=== PATIENT | female | born 1990 | race Caucasian/White ===

== ENCOUNTER 2021-11-22 13:58 | Outpatient (CLI) | payer OTHER, SELFPAY ==
--- NOTE | 2021-11-22 14:00 | CRLHL7_ITS ---
For Patients: As a result of the Century Cures Act, medical imaging exams and procedure reports are released immediately into your electronic medical record. You may view this report before your referring provider. If you have questions, please contact your health care provider. INDICATION: Third trimester scan, evaluate growth. COMPARISON: 07/27/2021 TECHNIQUE: Real time tucker scale imaging of the fetus was performed. FINDINGS: Sonographic imaging demonstrates a single living intrauterine gestation. Fetus demonstrates a regular cardiac rate of 150 beats per minute. Fetus has a vertex position. The placenta lies posteriorly. Amniotic fluid volume appears normal and there is a single deepest vertical pocket: 4.8 cm. The estimated weight is 3318gm which lies at the 69th %. On the prior OB ultrasound exam dated 07/27/2021 the estimated weight was at the 55th%. BPD 80th percentile. HC 74th percentile. AC 79th percentile. FL 31st percentile. The HC/AC ratio measures 1.00 range (0.90-1.06). Mild right renal pelviectasis is present measuring 4.6 millimeters. This is considered normal. However, there is increased left renal pelviectasis measuring 10.4 millimeters which is considered abnormal in the 3rd trimester. IMPRESSION: Sonographic gestational age 38 weeks 0 days and sonographic due date 12/06/2021. Sonographic age concordant with the gestational age. Normal interval growth. Estimated weight 69th percentile. Abdominal circumference 79th percentile. Left renal pelviectasis measuring 10.4 millimeters considered abnormal in the 3rd trimester. follow-up recommended. Dictated by Adelfo Rao MD @ 11/23/2021 9:06:49 AM (Electronically Signed)
== END 2021-11-22 13:59 | disposition home or self-care (01) ==
LOC: US 14:00
PROVIDERS: Visit Provider Registered Nurse
DX: Z34.93 Encounter for supervision of normal pregnancy, unspecified, third trimester (principal); Z3A.38 38 weeks gestation of pregnancy
CPT/HCPCS: 76816

== ENCOUNTER 2021-11-22 15:50 | Outpatient (CLI) | payer OTHER, SELFPAY ==
[2021-11-23 14:03] LABS: Strep B DNA Probe NEGATIVE (Negative)
== END 2021-11-22 15:51 | disposition home or self-care (01) ==
LOC: NFLDREF 15:51
PROVIDERS: Visit Provider Obstetrics & Gynecology
DX: Z34.93 Encounter for supervision of normal pregnancy, unspecified, third trimester (principal); Z3A.38 38 weeks gestation of pregnancy
CPT/HCPCS: 87081; 87653

== ENCOUNTER 2021-12-12 11:13 | Outpatient (CLI) | payer OTHER, SELFPAY ==
[2021-12-12 11:39] VITALS: BP 118/71; PULSE 122; TEMP 36.6
[2021-12-12] MEDS: hydrOXYzine pamoate 25 MG CAPSULE 100 MG PO (13:23)
[2021-12-12] MEDS: MORPHINE 10 MG/ML inj IM (13:24)
[2021-12-12 13:59] LABS: Amnisure Rom* Negative
--- OUTSIDE RECORDS SUMMARY | 2021-12-19 21:48 | XMS_ITS | Encounter Summary ---
:1990 Author Organization [facility] Address [address] [place] [address] Care Team Providers Name Role Phone Nelly Avalos M.D. 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 Alcohol Habits Answer Date Recorded How often do you have a drink containing Monthly or less 02/27/2019 alcohol? How many drinks containing alcohol do you 1 or 2 02/27/2019 have on a typical day when you are drinking? How often do you have six or more drinks Never 02/27/2019 on one occasion? Comment: Maybe once a month, if that. 05/04/2019 Social Isolation Answer Date Recorded In a typical week, how many times do you talk on Once a week 02/27/2019 the phone with family, friends, or neighbors? How often do you get together with friends or Once a week 02/27/2019 relatives? How often do you attend mosque or episcopalian 1 to 4 times per year 02/27/2019 services? Do you belong to any clubs or organizations such No 02/27/2019 as mosque groups, unions, fraternal or athletic groups, or school groups? How often do you attend meetings of the clubs or Never 02/27/2019 organizations you belong to? Are you now , , , 02/27/2019 , never or living with a partner? Physical Activity Answer Date Recorded On average, how many days per week do you engage in moderate to 2 days 02/27/2019 strenuous exercise (like walking fast, running, jogging, dancing, swimming, biking, or other activities that cause a light or heavy sweat)? On average, how many minutes do you engage in exercise at th is 30 min 02/27/2019 level? Stress Answer Date Recorded Do you feel stress - tense, restless, nervous, or To some ex tent 02/27/2019 anxious, or unable to sleep at night because your mind is troubled all the time - these days? Financial Resource Strain Answer Date Recorded How hard is it for you to pay for the very basics like Not v marimar hard 02/27/2019 food, housing, medical care, and heating? Intimate Partner Violence Answer Date Recorded Within the last year, have you been afraid of your partner o r No 02/27/2019 ex-partner? Within the last year, have you been humiliated or emotionall y Yes 02/27/2019 abused in other ways by your partner or ex-partner? Within the last year, have you been kicked, hit, slapped, or No 02/27/2019 otherwise physically hurt by your partner or ex-partner? Within the last year, have you been raped or forced to have any No 02/27/2019 kind of sexual activity by your partner or ex-partner? Food Insecurity Answer Date Recorded Within the past 12 months, you worried that your food would Never true 02/27/2019 run out before you got money to buy more. Within the past 12 months, the food you bought just didn't N ever true 02/27/2019 last and you didn't have money to get more. Transportation Needs Answer Date Recorded In the past 12 months, has lack of transportation kept you f rom No 02/27/2019 medical appointments or from getting medications? In the past 12 months, has lack of transportation kept you f rom No 02/27/2019 meetings, work, or getting things needed for daily living? Education Answer Date Recorded What is the highest level of school Associate degree: academ [employer] program 02/26/2019 you have completed or the highest degree you have received? 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 PCP - General Family Medicine 11/15/[address] [place] [id number] documented as of this encounter
--- OUTSIDE RECORDS SUMMARY | 2021-12-19 21:48 | XMS_ITS | Encounter Summary ---
:1990 Author Organization [facility] Address [address] [place] [address] Care Team Providers Name Role Phone Nelly Avalos M.D. Primary Care Provider Reason for Visit Reason Comments Vomiting Encounter Details Date Type Department Care Team Description 07/01/2021 Nurse Triage Department of Adina Laguna, [facility] Medicine, [facility], [facility] in [place], [place] [address] [facility] [address] [place] [address] [place] [address] [phone] Social History Tobacco Use Types Packs/Day Years [...] 02/27/2019 relatives? How often do you attend christian or christianity 1 to 4 times per year 02/27/2019 services? Do you belong to any clubs or organizations such No 02/27/2019 as christian groups, unions, fraternal or athletic groups, or [...] the highest level of school Associate degree: [employer] program 02/26/2019 you have completed or the highest degree you have received? Sex Assigned at Date Recorded Female 02/27/2019 11:22 AM CDT documented as of this encounter Miscellaneous Notes Telephone Encounter - Adina ChowdhuryUrszula - 07/01/2021 5:12 AM WINDOW REPAIRER Chief Complaint / Reason for Call Patient is a 31 y.o. female calling regarding Vomiting. Assessment Concern: Patient began having vomiting and diarrhea about 6 hours ago. No blood in the vomit or stools. No fever is present at this time. Patient is able to drink fluids, and is not dehydrated at this time. Patient is 17 weeks . Calling to request: Advice The recommended disposition is Home Care. Care Advice Patient/Caregiver understands and will follow care advice?: Yes, able to teach back HOME CARE: * You should be able to treat this at home. REASSURANCE AND EDUCATION: * Vomiting and diarrhea are often caused by viral gastroenteritis (stomach flu) or mild food poisoning. * Staying well-hydrated is the most important thing. CLEAR LIQUIDS: * Try to sip small amounts (1 tablespoon or 15 ml) of liquid frequently (every 5 minutes) for 8 hours, rather than trying to drink a lot of liquid all at one time. * Sip water or a 1/2 strength sports drink (e.g., Gatorade or Powerade). * Other options: 1/2 strength flat lemon-huslia soda or florentino lexa. * After 4 hours without vomiting, increase the amount. SOLID FOOD: * You may begin eating bland foods after 8 hours without vomiting. * Start with saltine crackers, white bread, rice, mashed potatoes, cereal, applesauce, etc. * You can resume a normal diet in 24-48 hours. AVOID NON-ESSENTIAL MEDS: * Discontinue all vitamins and non-prescription medicines for 24 hours. (Reason: may make vomiting worse.) * Avoid NSAIDs, which can cause gastritis * Call if vomiting a prescription medicine. EXPECTED COURSE: * Vomiting from viral gastroenteritis (stomach flu) or mild food poisoning usually stops in 12 to 48hours. * Diarrhea often lasts for several days. For mild diarrhea, follow the care advice for vomiting; youdon't need to do anything special for mild diarrhea. CALL BACK IF: * Vomiting lasts more than 2 days (48 hours) * Vomit contains bile (green color) * Diarrhea lasts more than 7 days * Constant stomach pain lasting more than 2 hours * Signs of dehydration (e.g., no urination over 12 hours, very lightheaded) * You become worse. COVID-19 Nurse Line Screening ASSESSMENT Initial Screening Pathway Select appropriate pathway: : Adult In the last 48 hours, have you had a fever* OR symptoms that are unrelated to a preexisting illness?: New diarrhea, New vomiting, New nausea, New chills, New muscle aches, New headache Date of symptom onset: 06/30/21 COVID Symptomatic Screening Do you have any of the following urgent symptoms?: No urgent symptoms noted (Continue Screening) Have you received a COVID-19 vaccine in the last 72 hours? : No vaccine received (Continue Screening) Have you had close contact* with a person who has tested positive with COVID-19 in the past 14 days?: No (Continue Screening) Have you tested positive for COVID-19 in the last 45 days?: Yes. Testing for COVID-19 is not indicated at this time. (Continue Screening for Additional Testing) Additional Screening for Influenza, RSV and Strep Select appropriate region: : [place] Do you have any of the following respiratory syntonical virus (RSV) complications? : No complications noted (Continue Screening) Do you have any of the following high risk influenza criteria?: No criteria noted (Continue Screening) Are all of the following Strep criteria met? : No, all criteria are not met. Influenza tesing is indicated. (End Screening) Symptom Onset Date of symptom onset: 06/30/21 Testing Recommendation Endpoint Is testing recommended? : Not recommended to test Further Triage Needs Any further triage needs? : No further concerns noted. PLAN Endpoint recommendation: Testing not indicated at this time Standard Care Points -Get a COVID -19 vaccine as soon as you can if not fully vaccinated. -Wash hands frequently with soap and water, use hand mine expert if soap and water aren't available. -Wear a mask over your nose and mouth to help protect yourself and others if not fully vaccinated and having no symptoms -Stay 6 feet between yourself and others who don't live with you. -Avoid crowds and poorly ventilated indoor spaces. -Seek emergent care if any of the following occur Trouble breathing Bluish lips or face Persistent pain or pressure in the chest New confusion or inability to rouse. -Notify your regular care provider of any new or worsening symptoms. Symptomatic Carepoints: All symptomatic patients, even those who are up to date with COVID-19 vaccinations, should isolate pending COVID-19 testing result received. Stay home and separate yourself fromothers and stay in a specific sick room if able. Wear a mask if you have to be around others. Avoid sharing personal or household items. Rest. Hydrate. Take Acetaminophen/Ibuprofen as needed to control fever and muscles aches. If you have tested negative for COVID-19, and you continue to have new orworsening symptoms, consider retesting after 72 hours. Education: Patient/caregiver able to teach back Patient agreeable to plan of care: Yes The following references were used: Nursing judgement Reason for Disposition ??? MILD vomiting with diarrhea Protocols used: [id number] OW REPAIRER documented in this encounter Plan of Treatment Not on filedocumented as of this encounter Visit Diagnoses Not on filedocumented in this encounter Additional Health Concerns Assessment Noted Time PHQ-9 Depression Total Score: 10 02/27/2019 11:27 AM C DT documented as of this encounter Care Teams Silviculturist Relationship Specialty Start Date End Date Nelly Avalos M.D. PCP - General Family Medicine 11/15/[address] [place] [phone] documented as of this encounter
--- OUTSIDE RECORDS SUMMARY | 2021-12-19 21:48 | XMS_ITS | Clinical Summary ---
:1990 Author Organization [facility] Address [address] [place] [address] Care Team Providers Name Role Phone Nelly Avalos M.D. Primary Care Provider Source Comments Patient records contain information from all sites at [facility]. For routine questions regarding patient records, call [phone] during business hours, M-F 8:00 AM - 5:00 PM Central Time. Record requests for emergency care only can be directed to [phone] at any time.[facility] Allergies No known active allergies Medications No known medications Active Problems Problem Noted Date Acne 02/27/2019 Polycystic Ovary Syndrome 09/24/2016 Resolved Problems Problem Noted Date Resolved Date Health Maintenance Examination Adult 02/27/201907/2020 Overview: - Pap: 07/2017 - normal, due 07/2020 - BMI: 24 - Vaccinations: Premature Rupture Membrane 05/06/2017 02/27/2019 Pyelonephritis Acute 07/10/2016 02/27/2019 Immunizations Name Administration Dates Next Due Influenza (IM) Preservative Free 05/01/2015 Influenza, Unspecified 02/25/2019 SARS-COV-2 (COVID-19) - EthosGen (J&J) 12/13/2020 Tdap 04/17/2017 influenza vaccine quad 02/22/2021, 06/22/2020, 02/17/2018, (FLUZONE/FLUARIX) (6 months and 03/20/2017 older)(PF) Family History Medical History Relation Name Comments Breast cancer Maternal Grandmother ? Alcohol abuse Mother Lyla Anxiety disorder Mother Lyla Depression Mother Lyla Hyperlipidemia Mother Lyla Hypertension Mother Lyla Obesity Mother Lyla Suicide Attempts Paternal Grandfather Tata Seizures Son Jim Relation Name Status Comments Maternal Grandmother ? Mother Lyla Paternal Grandfather Tata Son Jim Social History Tobacco Use Types Packs/Day Years [...] 02/27/2019 relatives? How often do you attend orthodox or druze 1 to 4 times per year 02/27/2019 services? Do you belong to any clubs or organizations such No 02/27/2019 as orthodox groups, unions, fraternal or athletic groups, or [...] highest level of school Associate degree: academ [employer] program 02/26/2019 you have completed or the highest degree you have received? Sex Assigned at Date Recorded Female 02/27/2019 11:22 AM CDT Last Filed Vital Signs Vital Sign Reading Time Taken Comments Blood Pressure 124/80 02/01/2021 1:32 PM CDT Pulse 85 02/01/2021 1:32 PM CDT Temperature 36 ??C (96.8 ??F) 02/01/2021 1:32 PM CDT Respiratory Rate 18 02/01/2021 1:32 PM CDT Oxygen Saturation 99% 02/01/2021 1:32 PM CDT Inhaled Oxygen Concentration - - Weight 83.1 kg (183 lb 3.2 oz) 02/01/2021 1:32 PM CDT Height 174 cm (5' 8.5) 06/22/2020 11:11 AM HADOOP INFRASTRUCTURE ARCHITECT Body Mass Index 27.45 06/22/2020 11:11 AM HADOOP INFRASTRUCTURE ARCHITECT Plan of Treatment Health Maintenance Due Date Last Done Comments Hepatitis B Vaccines (1 of 1990 3 - 3-dose series) Hepatitis C Screening 1990 COVID-19 Vaccine (2 - 02/07/2021 12/13/2020 Booster for Audie series) Depression Screening 05/13/2021 (Annual PHQ-2) Influenza Vaccine (#1) 2022 02/22/2021, 06/22/2020, 02/25/2019, Additional history exists Cervical Cancer Screening 06/22/2023 06/22/2020, 06/22/2020 , 07/23/2017 DTaP,Tdap,and Td Vaccines 04/17/2027 04/17/2017 (2 - Td or Tdap) HIV Screening Completed 11/01/2016 Pneumococcal vaccine (0-64 Aged Out No lo nger eligible years) based on patient 's age to complete this topic Insurance Payer Benefit Plan Subscriber ID Effective Dates Phone Address Type / Group MEDICA [facility] [id number] 2020-Prese [phone] PO DINO X [id number] PPO EMPLOYEE PLAN nt 2 [place] [id number] Care Teams Bmx Rider Relationship Specialty Start Date End Date Nelly Avalos M.D. PCP - General Family Medicine 11/15/[address] [place] [phone]
--- OUTSIDE RECORDS SUMMARY | 2021-12-19 21:48 | XMS_ITS | Encounter Summary ---
:1990 Author Organization [facility] Address [address] [place] [address] Care Team Providers Name Role Phone Nelly Avalos M.D. Primary Care Provider Encounter Details Date Type Department Care Team Description 05/16/2021 Admin Visit Department of Family [facility] Veras, [facility], [facility] [address] [facility] [address] [place] [phone] (Wo rk) Social History Tobacco Use Types Packs/Day Years [...] 02/27/2019 relatives? How often do you attend orthodoxy or temple 1 to 4 times per year 02/27/2019 services? Do you belong to any clubs or organizations such No 02/27/2019 as orthodoxy groups, unions, fraternal or athletic groups, or [...] highest level of school Associate degree: academ [employer] program 02/26/2019 you have completed or the highest degree you have received? Sex Assigned at Date Recorded Female 02/27/2019 11:22 AM CDT documented as of this encounter Plan of Treatment Not on filedocumented as of this encounter Visit Diagnoses Not on filedocumented in this encounter Additional Health Concerns Infection Onset Date Last Indicated Resolved Time COVID19 Pending 05/16/2021 05/16/2021 05/17/2021 9:50 PM RIPSAW GRADER Assessment Noted Time PHQ-9 Depression Total Score: 10 02/27/2019 11:27 AM C DT documented as of this encounter Care Teams Principal Automation Engineer Relationship Specialty Start Date End Date Nelly Avalos M.D. PCP - General Family Medicine 11/15/[address] [place] [phone] documented as of this encounter
--- OUTSIDE RECORDS SUMMARY | 2021-12-19 21:48 | XMS_ITS | Encounter Summary ---
:1990 Author Organization [facility] Address [address] [place] [address] Care Team Providers Name Role Phone Nelly Avalos M.D. Primary Care Provider Reason for Visit Reason Onset Date Comments Testing For Upper Respiratory Virus Symptoms 05/16/2021 Encounter Details Date Type Department Care Team Description 05/16/2021 External Outreach Department of [facility] Contact With And (Suspected) Exposure To COVID-19; Medicine, [facility] In[facility], in [address] [address] [place], [place] [phone] (Work) [phone] Social History Tobacco Use Types Packs/Day Years [...] 02/27/2019 relatives? How often do you attend pentecostal or sikh 1 to 4 times per year 02/27/2019 services? Do you belong to any clubs or organizations such No 02/27/2019 as pentecostal groups, unions, fraternal or athletic groups, or [...] the highest level of school Associate degree: [facility] [employer] [facility] [employer] program 02/26/2019 you have completed or the highest degree you have received? Sex Assigned at Date Recorded Female 02/27/2019 11:22 AM CDT documented as of this encounter Progress Notes Herber Singh - 05/16/2021 1:40 PM CST Encounter created for symptomatic infectious disease screening with possible COVID, Influenza, RSV, and/or Group A Strep testing. ATTACHER documented in this encounter Miscellaneous Notes Result Encounter Note - Torres Luna R.N. - 05/18/2021 8:59 AM STOP ATTACHER The patient will be contacted if they are eligible and appointments are available for Monoclonal Antibody Infusion and/or Remote Patient Monitoring. The [facility] Covid Care Team (CCT) sends general guidance about COVID-19 to all patients by letter or portal, except when a patient is hospitalized or resides in a shelter. [facility] will call all adult patients at highest risk for severe complications of COVID-19 (MASS 3 or greater) and all who require an photographic equipment technician. Any patient with a MASS score 1 or greater or a COVID-19 score 1 or greater may be at higher risk ofsevere disease. These patients will follow up directly with primary care. The primary care team willdecide if the patient needs a phone call or a follow up portal message to assess symptom severity, provide individualized guidance on symptom monitoring or symptom management, or to reinforce when to se ek care. [facility] encourages patients to follow up with their PCP with questions, worsening symptoms, or for symptom management. For questions, contact the [facility] Covid Care Team ([facility]): Pager: [phone] In basket: P RST/[facility] COVID-19 POSITIVE Covid Care e-consult Components of the Monoclonal Antibody Selection Score (MASS) Compromised Immune System/Transplant = 4 points Chronic Kidney Disease on Dialysis = 4 points Age greater than or equal to 55 and chronic pulmonary disease = 3 points Age greater than or equal to 65 = 2 points Age greater than or equal to = 2 points Diabetes = 2 points Age greater than or equal to 55 AND cardiovascular disease = 2 points Age greater than or equal to 55 and hypertension = 1 point NOTE: At the time of testing, patients are instructed to obtain the result by calling the [employer] result line or by checking their online services account. ATTACHER documented in this encounter Plan of Treatment Not on filedocumented as of this encounter Procedures Procedure Name Priority Date/Time Associated Diagnosis Comme nts INFLUENZA A/B AND Routine 05/16/2021 3:05 PM Infection Upper R esults for this RSV, PCR, VARIES STOP ATTACHER Respiratory procedure a re in the results section. SARS CORONAVIRUS-2 Routine 05/16/2021 3:05 PM Contact With And Results for this RNA, V STOP ATTACHER (Suspected) Exposure procedu re are in To COVID-19 the results section. documented in this encounter Results Influenza A/B and RSV, PCR, Varies (05/16/2021 3:05 PM STOP ATTACHER) [facility] Method Time Signature Influenza A/B Swab, 05/20/2021 DTL and RSV, Nasopharynx 12:46 PM Source STOP ATTACHER Influenza A, Undetected Undetected 05/20/2021 DTL PCR 12:46 PM STOP ATTACHER Comment: Influenza A RNA absent. Influenza B, PCR Undetected Undetected 05/20/2021 12:[address] DTL Comment: Influenza B RNA absent. Respiratory Syncytial Virus, Undetected Undetected 2 12:46 PM STOP ATTACHER DTL PCR Comment: RSV RNA absent. ----ADDITIONAL INFORMATION---- This test has been modified from the man ufacturer's instructions. Its performance characteristics were determi selene by [facility] in a manner consistent with CLIA requirements. This test has not been cleared or approved by the U.S. Food and Drug Administration . Specimen Anatomical Collection Method Collection Time Receive d Time (Source) Location / / Volume Laterality Varies 05/16/2021 3:05 PM 2 (Nasopharynx) STOP ATTACHER 10:11 PM STOP ATTACHER Al Wilson P.A.-C. LAB MICROBIOLOGY - GENERAL O RAVINDRA Performing Organization Address City/State/ZIP Code Phon e Number [facility] - [address] [place], [place] [address] [facility] [place] [address] Laboratories-[facility] [address] [facility] (ABNORMAL) SARS Coronavirus-2 RNA, V Symptomatic (05/16/2021 3:05 PM STOP ATTACHER) [facility] Method Time Signature SARS-CoV-2 Swab, 05/17/2021 ECLR Specimen Nasopharynx 9:49 PM STOP ATTACHER Source SARS CoV-2 Detected (A) Undetected 05/17/2021 ECLR RNA, TMA 9:49 PM STOP ATTACHER Comment: SARS-CoV-2 RNA present. ----ADDITIONAL INFORMATION---- This molecular amplification test was pe rformed using the Aptima SARS-CoV-2 assay ([employer] on the [employer] tem under emergency use authorization (EUA) by the U.S. Food and Drug Administ timo. Fact sheets for this EUA assay can be fo und at the following links: For Healthcare Providers: https://www.fd a.gov/media/216322/download For Patients: https://www.fda.gov/media/ 412152/download Specimen Anatomical Collection Method Collection Time Receive d Time (Source) Location / / Volume Laterality Varies 05/16/2021 3:05 PM (Nasopharynx) STOP ATTACHER 10:06 PM STOP ATTACHER Al Wilson P.A.-C. LAB MICROBIOLOGY - GENERAL O RAVINDRA Performing Organization Address City/[facility]/ZIP Code Phon e Number [facility]- [address] [place] [phone] [facility] [place] [address] [address] documented in this encounter Visit Diagnoses Diagnosis Contact With And (Suspected) Exposure To COVID-19 Infection Upper Respiratory documented in this encounter Additional Health Concerns Infection Onset Date Last Indicated Resolved Time COVID19 Pending 05/16/2021 05/16/2021 05/17/2021 9:50 PM STOP ATTACHER Assessment Noted Time PHQ-9 Depression Total Score: 10 02/27/2019 11:27 AM C DT documented as of this encounter Care Teams Statistical Assistant Relationship Specialty Start Date End Date Nelly Avalos M.D. PCP - General Family Medicine 11/15/[address] [place] [phone] documented as of this encounter
--- OUTSIDE RECORDS SUMMARY | 2021-12-19 21:49 | XMS_ITS | Encounter Summary ---
:1990 Author Organization [facility] Address [address] [place] [address] Care Team Providers Name Role Phone Nelly Avalos M.D. Primary Care Provider Encounter Details Date Type Department Care Team Description 11/15/2020 E-Visit [facility] Express Gilma Hassan, RE : [facility] Bladder Infection Building on the [address] (female only, age 12-75 Floor years) [address] [place] [address] Social History Tobacco Use Types Packs/Day Years [...] 02/27/2019 relatives? How often do you attend sikh or mu-ism 1 to 4 times per year 02/27/2019 services? Do you belong to any clubs or organizations such No 02/27/2019 as sikh groups, unions, fraternal or athletic groups, or [...] highest level of school Associate degree: academ [employer] program 02/26/2019 you have completed or the highest degree you have received? Sex Assigned at Date Recorded Female 02/27/2019 11:22 AM CDT documented as of this encounter Plan of Treatment Not on filedocumented as of this encounter Visit Diagnoses Diagnosis Symptom Urinary - Primary documented in this encounter Additional Health Concerns Assessment Noted Time PHQ-9 Depression Total Score: 10 02/27/2019 11:27 AM C DT documented as of this encounter Care Teams Research Aide Relationship Specialty Start Date End Date Nelly Avalos M.D. PCP - General Family Medicine 11/15/[address] [place] [phone] documented as of this encounter
--- OUTSIDE RECORDS SUMMARY | 2021-12-19 21:49 | XMS_ITS | Encounter Summary ---
:1990 Author Organization [facility] Address [address] [place] [address] Care Team Providers Name Role Phone Nelly Avalos M.D. Primary Care Provider Reason for Visit Reason Comments Urinary Tract Infection Encounter Details Date Type Department Care Team Description 11/16/2020 Nurse Triage Department of [facility] Maria L Burch Ur inary Tract Medicine, [facility], in [address] [address] [place], [place] [phone] (Work) [phone] Social History Tobacco Use Types Packs/Day Years [...] 02/27/2019 relatives? How often do you attend taoist or nondenominational 1 to 4 times per year 02/27/2019 services? Do you belong to any clubs or organizations such No 02/27/2019 as taoist groups, unions, fraternal or athletic groups, or [...] the highest level of school Associate degree: [employer] program 02/26/2019 you have completed or the highest degree you have received? Sex Assigned at Date Recorded Female 02/27/2019 11:22 AM CDT documented as of this encounter Miscellaneous Notes Telephone Encounter - Maria L Burch R.N. - 11/16/2020 9:02 AM CDT Chief Complaint / Reason for Call Patient is a 30 y.o. female calling regarding Urinary Tract Infection. Assessment Concern: patient has a UTI and was given antibiotics that she started taking last night. Patient is feeling nauseated and is having lower abdomen pressure. Pain is 3/10. Calling to request: advice The recommended disposition: call back in 48hrs if symptoms do not improve. Reason for Disposition ??? All other urine symptoms Protocols used: URINARY [id number] Care Advice Patient/Caregiver understands and will follow care advice?: Yes, able to teach back CALL BACK IF: * Fever occurs * Unable to urinate and bladder feels full * You become worse. Triage nurse encouraged the patient to continue with taking her antibiotics as directed, to stay hydrated, and if symptoms persist to call us back at 48 hours for follow up. documented in this encounter Plan of Treatment Not on filedocumented as of this encounter Visit Diagnoses Not on filedocumented in this encounter Additional Health Concerns Assessment Noted Time PHQ-9 Depression Total Score: 10 02/27/2019 11:27 AM C DT documented as of this encounter Care Teams Track Repair Worker Relationship Specialty Start Date End Date Nelly Avalos M.D. PCP - General Family Medicine 11/15/[address] [place] [phone] documented as of this encounter
--- OUTSIDE RECORDS SUMMARY | 2021-12-19 21:49 | XMS_ITS | Encounter Summary ---
:1990 Author Organization [facility] Address [address] [place] [address] Care Team Providers Name Role Phone Mahi Coombs M.D. Primary Care Provider Encounter Details Date Type Department Care Team Description 04/07/2020 Admin Visit Department of Family Medicine, [facility] [place] in [place], [place] [address] [place] [address] Social History Tobacco Use Types Packs/Day Years [...] 02/27/2019 relatives? How often do you attend quaker or hoahaoism 1 to 4 times per year 02/27/2019 services? Do you belong to any clubs or organizations such No 02/27/2019 as quaker groups, unions, fraternal or athletic groups, or [...] highest level of school Associate degree: academ [employer] program 02/26/2019 you have completed or the highest degree you have received? 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 PCP - General 11/11/19 11/14/20 [address] [place] [address] documented as of this encounter
--- OUTSIDE RECORDS SUMMARY | 2021-12-19 21:49 | XMS_ITS | Encounter Summary ---
:1990 Author Organization [facility] Address [address] [place] [address] Care Team Providers Name Role Phone Yandel Montgomery M.D. Primary Care Provider Unavailable Encounter Details Date Type Department Care Team Description 06/20/2018 Clinical Communication Division of [facility] [place] [facility], [address] [place] [address], in [place], [place] [address] [place] [address] [place], [place] (Work) [phone] Social History Tobacco Use Types Packs/Day Years Used Date Smoking Tobacco: Never Alcohol Habits Answer Date Recorded How often do you have a drink containing alcohol? Monthly or less 02/27/2019 How many drinks containing alcohol do you have on a 1 or 2 02/27/2019 typical day when you are drinking? How often do you have six or more drinks on one Never 02/27/2019 occasion? Comment: Not asked Social Isolation Answer Date Recorded In a typical week, how many times do you talk on Once a week 02/27/2019 the phone with family, friends, or neighbors? How often do you get together with friends or Once a week 02/27/2019 relatives? How often do you attend nondenominational or christianity 1 to 4 times per year 02/27/2019 services? Do you belong to any clubs or organizations such No 02/27/2019 as nondenominational groups, unions, fraternal or athletic groups, or [...] or getting things needed for daily living? Sex Assigned at Date Recorded Female 02/27/2019 11:22 AM CDT documented as of this encounter Plan of Treatment Not on filedocumented as of this encounter Visit Diagnoses Not on filedocumented in this encounter Care Teams Director Operations Broadcast Relationship Specialty Start Date End Date Yandel Montgomery M.D. PCP - General Internal Medicine 11/11/16 12/04/18 documented as of this encounter
--- OUTSIDE RECORDS SUMMARY | 2021-12-19 21:49 | XMS_ITS | Encounter Summary ---
:1990 Author Organization [facility] Address [address] [place] [address] Care Team Providers Name Role Phone Mahi Coombs M.D. Primary Care Provider Encounter Details Date Type Department Care Team Description 05/12/2020 E-Visit [facility] [place], RE: [facility]females o nly, ages 12 Building on the 4th M.S.N. through 75 years) Floor [address] [place] [address] [address] [place] [address] [phone] Social History Tobacco Use Types Packs/Day Years [...] 02/27/2019 relatives? How often do you attend christianity or nondenominational 1 to 4 times per year 02/27/2019 services? Do you belong to any clubs or organizations such No 02/27/2019 as christianity groups, unions, fraternal or athletic groups, or [...] highest level of school Associate degree: academ program 02/26/2019 you have completed or the highest degree you have received? Sex Assigned at Date Recorded Female 02/27/2019 11:22 AM CDT documented as of this encounter Plan of Treatment Not on filedocumented as of this encounter Visit Diagnoses Diagnosis Infection Urinary Tract - Primary documented in this encounter Additional Health Concerns Assessment Noted Time PHQ-9 Depression Total Score: 02/27/2019 11:27 AM C DT documented as of this encounter Care Teams Cushion Filler Relationship Specialty Start Date End Date Mahi Coombs M.D. PCP - General 11/11/19 11/14/20 [address] [place] [address] documented as of this encounter
--- OUTSIDE RECORDS SUMMARY | 2021-12-19 21:49 | XMS_ITS | Encounter Summary ---
:1990 Author Organization [facility] Address [address] [place] [address] Care Team Providers Name Role Phone Nelly Avalos M.D. Primary Care Provider Encounter Details Date Type Department Care Team Description 03/24/2021 Orders Only RST PCP [facility] Deandra Sierra M.D. [address] [place], [place] [phone] (Wo rk) Social History Tobacco Use Types [...] 02/27/2019 relatives? How often do you attend hinduism or buddhism 1 to 4 times per year 02/27/2019 services? Do you belong to any clubs or organizations such No 02/27/2019 as hinduism groups, unions, fraternal or athletic groups, or [...] the highest level of school Associate degree: [employer] program 02/26/2019 you have completed or the [...] documented as of this encounter Care Teams Cooker Helper Relationship Specialty Start Date End Date Nelly Avalos M.D. PCP - General Family Medicine 11/15/[address] [place] [phone] documented as of this encounter
--- OUTSIDE RECORDS SUMMARY | 2021-12-19 21:49 | XMS_ITS | Encounter Summary ---
:1990 Author Organization [facility] Address [address] [place] [address] Care Team Providers Name Role Phone Anastasia Coyne D.O. Primary Care Provider [phone] Encounter Details Date Type Department Care Team Description 02/27/2019 Hospital Encounter Department of Mickey Coyne Female; Laboratory Medicine Cuong Figueroa Polycystic Ovary Syndrome in [place], [facility] [address] [place], [place] [address] [facility] [address] [place], [place] [phone] [address] (Work) [phone] Social History Tobacco Use Types Packs/Day Years Used Date Smoking Tobacco: Never Smokeless Tobacco: Never Alcohol Habits Answer Date Recorded [...] 02/27/2019 relatives? How often do you attend methodist or samaritan 1 to 4 times per year 02/27/2019 services? Do you belong to any clubs or organizations such No 02/27/2019 as methodist groups, unions, fraternal or athletic groups, or [...] the highest level of school Associate degree: [employer] program 02/26/2019 you have completed or the highest degree you have received? Sex Assigned at Date Recorded Female 02/27/2019 11:22 AM CDT documented as of this encounter Medications at Time of Discharge Medication Sig Dispensed Refills Start Date End Date letrozole (FEMARA) 2.5 mg Take 1 tablet (2.5 15 tablet 0 05/12/2020 tablet mg total) by mouth as directed. Take on days 3-7 of cycle. Do not use for more than three cycles multivitamin capsule Take 1 tablet by 0 7 05/12/2020 mouth daily. prenat.vits,brody,min-iron-f Take 1 tablet by 0 05/12/2020 olic ( VITAMIN) mouth daily. tablet documented as of this encounter Plan of Treatment Not on filedocumented as of this encounter Procedures Procedure Name Priority Date/Time Associated Diagnosis Comme nts THYROID FUNCTION Routine 02/27/2019 2:22 PM Infertility Female Results for this CASCADE, S CDT Polycystic Ovary procedure a re in Syndrome the results section. PROLACTIN, S Routine 02/27/2019 2:22 PM Infertility F emale Results for this CDT Polycystic Ovary procedure a re in Syndrome the results section. LUTEINIZING HORMONE Routine 02/27/2019 2:22 PM Infertili ty Female Results for this (LH), S CDT Polycystic Ovary procedure a re in Syndrome the results section. FOLLICLE-STIM Routine 02/27/2019 2:22 PM Infertility F emale Results for this HORMONE (FSH), S CDT Polycystic Ovary procedu re are in Syndrome the results section. documented in this encounter Results Prolactin (02/27/2019 2:22 PM CDT) P athologist Signature Prolactin Total 10.2 4.8 - 23.3 02/27/2019 DTL ng/mL 7:57 PM CDT Comment: ----ADDITIONAL INFORMATION---- The testing method is an electrochemilum inescence assay manufactured by [employer] and performed on the Chris system. Values obtained with different assay met hods or kits may be different and cannot be used inte rchangeably. Test results cannot be interpreted as ab solute evidence for the presence or absence of malignant disease. Specimen Anatomical Collection Method Collection Time Receive d Time (Source) Location / / Volume Laterality Blood (Blood, 02/27/2019 2:22 PM 02/28/20 6:06 Venous) CDT PM CDT Anastasia Coyne D.O. LAB BLOOD ADD-ON Performing Organization Address [facility] Phon e Number [facility] - 200 [place], [place] [address] [place] [address] Laboratories-[facility] 200 [facility] LH (Luteinizing Hormone) (02/27/2019 2:22 PM CDT) P athologist Signature Luteinizing 8.4 IU/L 02/27/2019 DT Hormone (LH) 7:57 PM CDT Comment: ----REFERENCE VALUE---- Premenopausal: 1.9-14.6 IU/L (Follicular) 12.2-118.0 IU/L (Midcycle) 0.7-12.9 IU/L (Luteal) Postmenopausal: 5.3-65.4 IU/L Specimen Anatomical Collection Method Collection Time Receive d Time (Source) Location / / Volume Laterality Blood (Blood, 02/27/2019 2:22 PM 02/28/20 6:06 Venous) CDT PM CDT Anastasia Coyne D.O. LAB BLOOD ADD-ON Performing Organization Address City/[facility] Code Phon e Number [facility] - 200 [place], [place] [address] [place] [address] Laboratories-[address] Follicle-Stimulating Hormone (FSH), Serum (02/27/2019 2:22 PM CDT) P athologist Signature Follicle-Stim 4.8 IU/L 02/27/2019 DT Hormone (FSH), 7:57 PM CDT S Comment: ----REFERENCE VALUE---- Premenopausal: 2.9-14.6 IU/L (Follicular) 4.7-23.2 IU/L (Midcycle) 1.4-8.9 IU/L (Luteal) Postmenopausal: 16.0-157.0 IU/L Specimen Anatomical Collection Method Collection Time Receive d Time (Source) Location / / Volume Laterality Blood (Blood, 02/27/2019 2:22 PM 02/28/20 19 6:06 Venous) CDT PM CDT Anastasia Coyne D.O. LAB BLOOD ADD-ON Performing Organization Address City/[facility]/ZIP Code Phon e Number [facility] - [address] Thyroid Function [place] (02/27/2019 2:22 PM CDT) P athologist Signature TSH, Sensitive 1.9 0.3 - 4.2 02/27/2019 DTL mIU/L 7:57 PM CDT Specimen Anatomical Collection Method Collection Time Receive d Time (Source) Location / / Volume Laterality Blood (Blood, 02/27/2019 2:22 PM 02/28/20 19 6:06 Venous) CDT PM CDT Anastasia Coyne D.O. LAB BLOOD ADD-ON Performing Organization Address [facility]/ZIP [facility] Phon e Number [facility] - [id number] [place] [address] documented in this encounter Visit Diagnoses Diagnosis Infertility Female Polycystic Ovary Syndrome documented in this encounter Additional Health Concerns Assessment Noted Time PHQ-9 Depression Total Score: 10 02/27/2019 11:27 AM C DT documented as of this encounter Care Teams Septic Cleaner Relationship Specialty Start Date End Date Anastasia Coyne D.O. PCP - General Family Medicine 12/05/18 11/10/[address] [place] [address] documented as of this encounter
--- OUTSIDE RECORDS SUMMARY | 2021-12-19 21:49 | XMS_ITS | Encounter Summary ---
:1990 Author Organization [facility] Address [address] [place] [address] Care Team Providers Name Role Phone Mahi Coombs M.D. Primary Care Provider Reason for Visit Reason Onset Date Comments Outpatient COVID-19 Testing 03/28/2020 Encounter Details Date Type Department Care Team Description 03/28/2020 External Outreach Department of Sa ra Naty Brown M.D. [address] [place] [address] Infection Upper Medicine, [place] Al Wilson, P.A.-C. [address] [place] [address] Respiratory (Primary Clinic, in [place], Dx) [place] [address] [place] [address] Social History Tobacco Use Types Packs/Day Years [...] 02/27/2019 relatives? How often do you attend sabianism or mu-ism 1 to 4 times per year 02/27/2019 services? Do you belong to any clubs or organizations such No 02/27/2019 as sabianism groups, unions, fraternal or athletic groups, or [...] documented as of this encounter Progress Notes Kailyn Cunningham R.N. - 03/28/2020 7:45 AM CST Encounter created for the drive-through COVID-19 testing. ER MACHINE TENDER documented in this encounter Plan of Treatment Not on filedocumented as of this encounter Procedures Procedure Name Priority Date/Time Associated Comments Diagnosis SARS CORONAVIRUS 2 Routine 03/28/2020 7:51 AM Res ults for this PCR DETECT, V HOOKER MACHINE TENDER procedure are in the results section. documented in this encounter Results SARS Coronavirus 2 RNA Detection (03/28/2020 7:51 AM HOOKER MACHINE TENDER) [facility] Method Time Signature SARS-CoV-2 Nasopharynx 03/29/2020 [facility] Specimen 5:54 AM HOOKER MACHINE TENDER Source SARS-CoV-2 Undetected Undetected 03/29/2020 [facility] RNA by PCR 5:54 AM HOOKER MACHINE TENDER Comment: SARS-CoV-2 RNA absent. This result does not rule out COVID-19 in the patient, as the sensitivity of the test depends o n the timing of the specimen collection and the quality of the specim en. Result should be correlated with patient's history and clinical presentat ion. ----ADDITIONAL INFORMATION---- This PCR test was performed using the co Zoomaal SARS-CoV-2 assay ([employer] on the may iPowow[employer] System under emergency use authorization (EUA) by the U.S. Food and Drug Administ ration. Fact sheets for this assay can be found at the following links: For Healthcare Providers: https://www.[employer] a.gov/media/520826/download For Patients: https://www.fda.gov/media/ 367077/download Specimen (Source) Anatomical Collection Method Collection Time Re ceived Time Location / / Volume Laterality Varies 03/28/2020 7:51 AM HOOKER MACHINE TENDER Narrative [facility] SUPPORT RACHAEL R - 03/29/2020 5:54 AM HOOKER MACHINE TENDER Specimen Information: Specimen ID: [id number] Specimen Type: Varies Specimen Collection Start Date: 020 ??7:51 AM Specimen ID: [id number] Specimen Type: Varies Specimen Collection Start Date: 020 ??7:51 AM Specimen Received Date: 03/28/2020 ??8: 50 PM Al Wilson P.A.-C. LAB MICROBIOLOGY - GENERAL O RDERABLES Performing Organization Address City/State/ZIP Code Phon e Number [facility] [address] [place], [place] [address] [facility] [address] Laboratory Medicine and Pathology [address] [place] [address] Dr. [place] documented in this encounter Visit Diagnoses Diagnosis Infection Upper Respiratory - Primary documented in this encounter Additional Health Concerns Infection Onset Date Last Indicated Resolved Time COVID19 Pending 03/28/2020 03/28/2020 03/28/2020 2:45 PM HOOKER MACHINE TENDER Assessment Noted Time PHQ-9 Depression Total Score: 10 02/27/2019 11:27 AM C DT documented as of this encounter Care Teams Fishing Gear Mechanic Relationship Specialty Start Date End Date Mahi Coombs M.D. PCP - General 11/11/19 11/14/[address] [place] [address] documented as of this encounter
--- OUTSIDE RECORDS SUMMARY | 2021-12-19 21:49 | XMS_ITS | Encounter Summary ---
:1990 Author Organization [facility] Address [address] [place] [address] Care Team Providers Name Role Phone Mahi Coombs M.D. Primary Care Provider Encounter Details Date Type Department Care Team Description 08/31/2020 Orders Only RST PCP [facility] Deandra Sierra M.D. [address] [place], [place] [phone] (Wo rk) Social History [...] How often do you attend sikh or orthodox 1 to 4 times per year 02/27/2019 [...] the highest level of school Associate degree: [employer] program 02/26/2019 you have completed or the [...] documented as of this encounter Care Teams Smoke Inspector Relationship Specialty Start Date End Date Mahi Coombs M.D. PCP - General 11/11/19 11/14/[address] [place] [address] documented as of this encounter
--- OUTSIDE RECORDS SUMMARY | 2021-12-19 21:49 | XMS_ITS | Encounter Summary ---
:1990 Author Organization [facility] Address [address] [place] [address] Care Team Providers Name Role Phone Yandel Montgomery M.D. Primary Care Provider Unavailable Encounter Details Date Type Department Care Team Description 07/29/2017 Abstract DATA ABSTRACTION Provider, Historical Social History Tobacco Use Types Packs/Day Years [...] 02/27/2019 relatives? How often do you attend episcopal or worship 1 to 4 times per year 02/27/2019 services? Do you belong to any clubs or organizations such No 02/27/2019 as episcopal groups, unions, fraternal or athletic groups, or [...] minutes do you engage in exercise at is 30 min 02/27/2019 level? Stress Answer [...] on filedocumented in this encounter Care Teams Health Safety And Environment Manager Relationship Specialty Start Date End Date Yandel Montgomery M.D. PCP - General Internal Medicine 11/11/16 12/04/18 documented as of this encounter
--- OUTSIDE RECORDS SUMMARY | 2021-12-19 21:49 | XMS_ITS | Encounter Summary ---
:1990 Author Organization [facility] Address [address] [place] [address] Care Team Providers Name Role Phone Mahi Coombs M.D. Primary Care Provider Encounter Details Date Type Department Care Team Description 05/23/2020 Orders Only RST PCP [facility] Mahi Coombs M.D. [address] [place], [place] [phone] (Wo rk) Social History [...] 02/27/2019 relatives? How often do you attend confucianist or alevism 1 to 4 times per year 02/27/2019 services? Do you belong to any clubs or organizations such No 02/27/2019 as confucianist groups, unions, fraternal or athletic groups, or [...] the highest level of school Associate degree: [employer] program 02/26/2019 you have completed or the [...] documented as of this encounter Care Teams Apartment Maintenance Worker Relationship Specialty Start Date End Date Mahi Coombs M.D. PCP - General 11/11/19 11/14/[address] [place] [address] documented as of this encounter
--- OUTSIDE RECORDS SUMMARY | 2021-12-19 21:49 | XMS_ITS | Encounter Summary ---
:1990 Author Organization [facility] Address [address] [place] [address] Care Team Providers Name Role Phone Mahi Coombs M.D. Primary Care Provider Reason for Visit Reason Onset Date Comments Outpatient COVID-19 Testing 04/06/2020 Encounter Details Date Type Department Care Team Description 04/06/2020 External Outreach Department of [facility] Juana Wilson Infection Upper Medicine, [place] Farideh PGarryASarbjitCGarry Respiratory (Primary Clinic, in [place], [facility] [address]x) [place], [place] [address] [address] [place], [place] [phone] [address] (Work) [phone] Social History Tobacco Use Types Packs/Day Years [...] 02/27/2019 relatives? How often do you attend tenriism or jainism 1 to 4 times per year 02/27/2019 services? Do you belong to any clubs or organizations such No 02/27/2019 as tenriism groups, unions, fraternal or athletic groups, or [...] the highest level of school Associate degree: [employer] program 02/26/2019 you have completed or the highest degree you have received? Sex Assigned at Date Recorded Female 02/27/2019 11:22 AM CDT documented as of this encounter Progress Notes Kailyn Cunningham R.N. - 04/06/2020 8:59 AM CST Encounter created for the drive-through COVID-19 testing. UCTION MACHINE SHOP SUPERVISOR documented in this encounter Plan of Treatment Not on filedocumented as of this encounter Procedures Procedure Name Priority Date/Time Associated Diagnosis Comme nts SARS CORONAVIRUS-2 Routine 04/07/2020 7:59 AM Infection Upper Results for this RNA, V PRODUCTION MACHINE SHOP SUPERVISOR Respiratory procedure are i n the results section. documented in this encounter Results SARS Coronavirus-2 RNA, V Symptomatic (04/07/2020 7:59 AM PRODUCTION MACHINE SHOP SUPERVISOR) [facility] gist Method Time Signature SARS-CoV-2 Swab, 04/08/2020 [facility] Specimen Nasopharynx 12:00 PM Source PRODUCTION MACHINE SHOP SUPERVISOR SARS CoV-2 Undetected Undetected 04/08/2020 [facility] RNA, TMA 12:00 PM PRODUCTION MACHINE SHOP SUPERVISOR Comment: SARS-CoV-2 RNA absent. This result does not rule out COVID-19 in the patient, as the sensitivity of the test depends o n the timing of the specimen collection and the quality of the specim en. Result should be correlated with patient's history and clinical presentat ion. ----ADDITIONAL INFORMATION---- This test is performed using the Aptima SARS-CoV-2 assay ([employer] which has received Emergency Use Authori zation (EUA) by the U.S. Food and Drug Administration. Fact sheets for this Emergency Use Autho rization (EUA) assay can be found at the following links: For Healthcare Providers: https://www.fd a.gov/media/368893/download For Patients: https://www.fda.gov/media/ 433169/download Specimen Anatomical Collection Method Collection Time Receive d Time (Source) Location / / Volume Laterality Varies 04/07/2020 7:59 AM 0 3:11 (Nasopharynx) PRODUCTION MACHINE SHOP SUPERVISOR PM PRODUCTION MACHINE SHOP SUPERVISOR Al Wilson P.A.-C. LAB MICROBIOLOGY - GENERAL O RDERABLES Performing Organization Address City/State/ZIP Code Phon e Number [facility] [address] [place] [address] [phone] [facility] [place] [address] System [address] documented in this encounter Visit Diagnoses Diagnosis Infection Upper Respiratory - Primary documented in this encounter Additional Health Concerns Infection Onset Date Last Indicated Resolved Time COVID19 Pending 04/06/2020 04/07/2020 04/08/2020 12:01 PM PRODUCTION MACHINE SHOP SUPERVISOR Assessment Noted Time PHQ-9 Depression Total Score: 10 02/27/2019 11:27 AM C DT documented as of this encounter Care Teams Fmd Teacher Relationship Specialty Start Date End Date Mahi Coombs M.D. PCP - General 11/11/19 11/14/20 [address] [place] [address] documented as of this encounter
--- OUTSIDE RECORDS SUMMARY | 2021-12-19 21:49 | XMS_ITS | Encounter Summary ---
:1990 Author Organization [facility] Address [address] [place] [address] Care Team Providers Name Role Phone Nelly Avalos M.D. Primary Care Provider Reason for Visit Reason Comments Urinary Problem Triage COVID Inquiry Encounter Details Date Type Department Care Team Description 11/15/2020 Nurse Triage Department of [facility] Julianne Lawton Problem; Medicine, [place] M, R.NGarry Triage; COVID Inquiry Clinic, in [place] [phone] [place], [place] ([address] [phone] Social History Tobacco Use Types Packs/Day Years [...] 02/27/2019 relatives? How often do you attend worship or amish 1 to 4 times per year 02/27/2019 services? Do you belong to any clubs or organizations such No 02/27/2019 as worship groups, unions, fraternal or athletic groups, or [...] the highest level of school Associate degree: [employer] program 02/26/2019 you have completed or the highest degree you have received? Sex Assigned at Date Recorded Female 02/27/2019 11:22 AM CDT documented as of this encounter Miscellaneous Notes Telephone Encounter - Julianne Lawton R.N. - 11/15/2020 11:55 AM CDT Chief Complaint / Reason for Call Patient is a 30 y.o. female calling regarding Urinary Problem, Triage, and COVID Inquiry. Assessment Concern: Patient calling with concerns of UTI symptoms consisting of urinary urgency and frequency, burning with urination, cloudy and foul smelling urine. Patient discomfort rated at a 3-4/10. Present for: yesterday evening Home cares tried: At home urine test positive, [facility]zo Calling to request: Treatment. Appointment. The recommended disposition is The following treatment or testing is indicated by a health care provider in the next 12 hours. Patient's allergies, current medications and preferred pharmacy reviewed with patient. Prescription medication sent to pharmacy on file. Patient encouraged to greens picker prescription at earliest convenience. CARE POINTS REVIEWED - If symptoms worsen or continue at the end of the course of medication, call primary provider. - For women ages 16-55: Antibiotics may decrease the efficacy of contraceptive medications includingtablets, NuvaRing and patch. If using these medications, an additional form of control must beused until the end of patient's current cycle. - Drink extra fluids. - Urinate frequently and avoid retaining your urine for a long time when you feel the urge to void. - Empty bladder after intercourse documented in this encounter Plan of Treatment Not on filedocumented as of this encounter Visit Diagnoses Not on filedocumented in this encounter Additional Health Concerns Assessment Noted Time PHQ-9 Depression Total Score: 02/27/2019 11:27 AM C DT documented as of this encounter Care Teams Market Development Analyst Relationship Specialty Start Date End Date Nelly Avalos M.D. PCP - General Family Medicine 11/15/[address] [place] [phone] documented as of this encounter
--- OUTSIDE RECORDS SUMMARY | 2021-12-19 21:49 | XMS_ITS | Encounter Summary ---
:1990 Author Organization [facility] Address [address] [place] [address] Care Team Providers Name Role Phone Nelly Avalos M.D. Primary Care Provider Encounter Details Date Type Department Care Team Description 11/15/2020 E-Visit [facility] Express Gilma Hassan, RE : [facility] Bl[facility] In[facility] Building on the [address] (female only, age 12-75 Floor years) [address] [place] [address] Social History Tobacco Use Types Packs/Day Years [...] How often do you attend hinduism or presybeterian 1 to 4 times per year 02/27/2019 [...] highest level of school Associate degree: [employer] 02/26/2019 you have completed or the [...] documented as of this encounter Care Teams Broth Setter Relationship Specialty Start Date End Date Nelly Avalos M.D. PCP - General Family Medicine 11/15/[address] [place] [phone] documented as of this encounter
--- OUTSIDE RECORDS SUMMARY | 2021-12-19 21:49 | XMS_ITS | Encounter Summary ---
:1990 Author Organization [facility] Address [address] [place] [address] Care Team Providers Name Role Phone Mahi Coombs M.D. Primary Care Provider Encounter Details Date Type Department Care Team Description 03/28/2020 Admin Visit Department of Family Medicine, [facility] [place] in [place], [place] [address] [place] [phone] Social History Tobacco Use Types Packs/Day [...] 02/27/2019 relatives? How often do you attend presybeterian or episcopal 1 to 4 times per year 02/27/2019 services? Do you belong to any clubs or organizations such No 02/27/2019 as presybeterian groups, unions, fraternal or athletic groups, or [...] highest level of school Associate degree: [employer] 02/26/2019 you have completed or the highest degree you have received? 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 PCP - General 11/11/19 11/14/20 [address] [place] [phone] documented as of this encounter
--- OUTSIDE RECORDS SUMMARY | 2021-12-19 21:49 | XMS_ITS | Encounter Summary ---
:1990 Author Organization [facility] Address [address] [place] [address] Care Team Providers Name Role Phone Yandel Montgomery M.D. Primary Care Provider Unavailable Encounter Details Date Type Department Care Team Description 06/10/2017 Hospital Encounter HX NO MAPPING Social History Tobacco Use Types Packs/Day Years Used Date Smoking Tobacco: Never Assessed Alcohol Habits Answer Date Recorded How often [...] How often do you attend mosque or cheondoism 1 to 4 times per year 02/27/2019 [...] Sig Dispensed Refills Start Date End Date CHOLECALCIFEROL, VITAMIN Take 1 tablet by 0 11/0102/27/2019 D3, (CHOLECALCIFEROL, VIT mouth daily. D3,,BULK, MISC) KRILL OIL ORAL Take 1 capsule by 0 11/01/2016 mouth daily. multivitamin capsule Take 1 tablet by 0 7 05/12/2020 mouth daily. prenat.vits,brody,min-iron- Take 1 tablet by 0 06/1405/12/2020 folic ( VITAMIN) mouth daily. tablet documented as of this encounter Plan of Treatment Not on filedocumented as of this encounter Visit Diagnoses Not on filedocumented in this encounter Care Teams Toll Line Inspector Relationship Specialty Start Date End Date Yandel Montgomery M.D. PCP - General Internal Medicine 11/11/16 12/04/18 documented as of this encounter
--- OUTSIDE RECORDS SUMMARY | 2021-12-19 21:49 | XMS_ITS | Encounter Summary ---
:1990 Author Organization [facility] Address [address] [place] [address] Care Team Providers Name Role Phone Yandel Montgomery M.D. Primary Care Provider Unavailable Encounter Details Date Type Department Care Team Description 12/09/2017 Clinical Communication Division of [facility] [place], Pediatric and [facility], [address] [facility], in [place], [place] [phone] [place] [address] [place], [place] (Work) [phone] Social History Tobacco Use Types Packs/Day Years [...] 02/27/2019 relatives? How often do you attend evangelical or christianity 1 to 4 times per year 02/27/2019 services? Do you belong to any clubs or organizations such No 02/27/2019 as evangelical groups, unions, fraternal or athletic groups, or [...] Assessment Noted Time PHQ-9 Depression Total Score: 4 12/09/2017 2:38 PM CDT documented as of this encounter Care Teams Falsework Builder Relationship Specialty Start Date End Date Yandel Montgomery M.D. PCP - General Internal Medicine 11/11/16 12/04/18 documented as of this encounter
--- OUTSIDE RECORDS SUMMARY | 2021-12-19 21:49 | XMS_ITS | Encounter Summary ---
:[address] [facility] Address [address] [place] [address] Care Team Providers Name Role Phone Nelly Avalos M.D. Primary Care Provider Reason for Visit Reason Comments other Discussing standing desk and has noticed that she has issues with focusing more recently. Encounter Details Date Type Department Care Team Description 02/01/2021 Office Visit Department of Family Nelly Avalos Pa in Low Back Unspecified (Primary Dx); MedicineSteven M.D. Deficit Attention Or Concentration; [facility], [place] [address] Contrace ption Personal History [address] [address] [place], [place] [phone] (Work) [phone] Social History Tobacco Use Types Packs/Day Years [...] 02/27/2019 relatives? How often do you attend jew or tenriism 1 to 4 times per year 02/27/2019 services? Do you belong to any clubs or organizations such No 02/27/2019 as jew groups, unions, fraternal or athletic groups, or [...] the highest level of school Associate degree: [facility] [employer] Resume 02/26/2019 you have completed or the highest degree you have received? 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 - 02/01/2021 1:45 PM CDT SUBJECTIVE CHIEF COMPLAINT / REASON FOR VISIT Yeny Saleem is a 30 y.o. female who presents for evaluation of other (Discussing standing desk and has noticed that she has issues with focusing more recently. ). HISTORY OF PRESENT ILLNESS Yeny is a very pleasant 30-year-old female who presents today for further evaluation for consideration of standing desk. She has a history of low back pain that is improved with standing at periods of time. She experiences occasional numbness/tingling down the legs when the back pain occurs. No fevers, chills, weakness, urinary, or bowel incontinence. She has a history of acne and PCOS. Alesse was recently prescribed for this, and unfortunately she noticed weight gain and worsening acne on this as well as snapping more. She has since stopped it and declines desire for any alternative control method at this time. She does notice increased difficulty focusing while working from home. She has no prior history of attention deficit disorder and has never previously been evaluated for this. OBJECTIVE BP 124/80 (BP Location: Left arm, Patient Position: Sitting, Cuff Size: Regular) Pulse 85 Temp 36 ??C (Temporal) Resp 18 Wt 83.1 kg SpO2 99% BMI 27.45 kg/m?? PHYSICAL EXAM General: Pleasant, alert, in no apparent distress. Well groomed. Eyes: No conjunctival injection or erythema. No purulence. No scleral icterus. Respiratory: Breathing comfortably on room air: no accessory muscle use with breathing. Regular rate. Neurologic: No gross focal neurologic deficits. Normal muscle tone. No tremors or abnormal muscle movement noted. Alert and oriented to person, place, and time. Psychiatric: Mood: appropriate. Affect: full. Speech: clear, fluent, appropriate rate. ASSESSMENT / PLAN 1. Pain Low Back Unspecified Relieved with increased movement and frequent standing. Work note given that would benefit from standing desk. 2. Deficit Attention Or Concentration Suspect secondary to increased stressors with working from home and environmental change. Discuss that should she desire, could pursue further evaluation with psychological assessment as well. Also discussed importance of working towards 150 minutes of exercise per week to help improve concentration. 3. Contraception Personal History Unfortunately she did experience significant side effects with Alesse. She is not interested in alternative oral contraceptives at present and will let us know should she change her mind. Nelly Avalos M.D. 02/01/21 documented in this encounter Plan of Treatment Not on filedocumented as of this encounter Visit Diagnoses Diagnosis Pain Low Back Unspecified - Primary Deficit Attention Or Concentration Contraception Personal History documented in this encounter Additional Health Concerns Assessment Noted Time PHQ-9 Depression Total Score: 10 02/27/2019 11:27 AM C DT documented as of this encounter Care Teams Ip Paralegal Relationship Specialty Start Date End Date Nelly Avalos M.D. PCP - General Family Medicine 11/15/[address] [place] [phone] documented as of this encounter
--- OUTSIDE RECORDS SUMMARY | 2021-12-19 21:49 | XMS_ITS | Encounter Summary ---
:1990 Author Organization [facility] Address [address] [place] [address] Care Team Providers Name Role Phone Yandel Montgomery M.D. Primary Care Provider Unavailable Encounter Details Date Type Department Care Team Description 05/30/2017 Telemedicine Department of Obstetrics and Gynecology Social History Tobacco Use Types Packs/Day Years [...] 02/27/2019 relatives? How often do you attend religious or scientology 1 to 4 times per year 02/27/2019 services? Do you belong to any clubs or organizations such No 02/27/2019 as religious groups, unions, fraternal or athletic groups, or [...] Procedure Name Priority Date/Time Associated Comments Diagnosis OBSTETRICS AND Routine 05/30/2017 3:50 PM Results for this GYNECOLOGY IMAGE CHIN STRAP SEWER procedure a re in EXAM the results section. documented in this encounter Results OBSTETRICS AND GYNECOLOGY IMAGE EXAM (05/30/2017 3:50 PM CHIN STRAP SEWER) Specimen (Source) Anatomical Collection Method Collection Time Re ceived Time Location / / Volume Laterality 05/30/2017 3:50 PM CHIN STRAP SEWER Narrative [facility] - 05/30/2017 4:26 PM CHIN STRAP SEWER This order has been created and auto-finalized to support the import of images acquired without order. The clini brody documentation to support these images can be found on the encounter josé miguel t produced images. Provider Not In System IMG NON RAD IMAGING PROCEDUR ES Performing Organization Address City/State/ZIP Code Phon e Number [facility] NA documented in this encounter Visit Diagnoses Not on filedocumented in this encounter Care Teams Outcomes Specialist Relationship Specialty Start Date End Date Yandel Montgomery M.D. PCP - General Internal Medicine 11/11/16 12/04/18 documented as of this encounter
--- OUTSIDE RECORDS SUMMARY | 2021-12-19 21:49 | XMS_ITS | Encounter Summary ---
:1990 Author Organization [facility] Address [address] [place] [address] Care Team Providers Name Role Phone Nelly Avalos M.D. Primary Care Provider Encounter Details Date Type Department Care Team Description 03/22/2021 Orders Only RST PCP [facility] Nelly Avalos M.D. [address] [place] [phone] (Wo rk) Social History Tobacco Use Types [...] 02/27/2019 relatives? How often do you attend alevism or yarsanism 1 to 4 times per year 02/27/2019 services? Do you belong to any clubs or organizations such No 02/27/2019 as alevism groups, unions, fraternal or athletic groups, or [...] the highest level of school Associate degree: [employer] program 02/26/2019 you have completed or the [...] documented as of this encounter Care Teams Proc Tech Relationship Specialty Start Date End Date Nelly Avalos M.D. PCP - General Family Medicine 11/15/[address] [place] [phone] documented as of this encounter
--- OUTSIDE RECORDS SUMMARY | 2021-12-19 21:49 | XMS_ITS | Encounter Summary ---
:1990 Author Organization [facility] Address [address] [place] [address] Care Team Providers Name Role Phone Mahi Coombs M.D. Primary Care Provider Reason for Visit Reason Comments Annual Exam control-wants nothing that will gain weight or acne, wants to discuss pcos Gynecologic Exam Establish Care Appointment Request (Routine) - Closed Specialty Diagnoses / Procedures Referred By Contact Refer red To Contact Family Medicine Referral ID Status Reason Start Date Expiration Date Visits Requ ested Visits Authorized [id number] Closed 05/25/2020 05/25/2021 1 1 Encounter Details Date Type Department Care Team Description 06/22/2020 Comprehensive Visit Department of Nelly Avalos Medical Examination Adult (Primary Dx); Family MedicineTrae M.D. Pap Smear Examination; [place] [id number] Therapy Oral Contraceptive; Clinic, in [facility] Cerumen Impacted Bilateral; [facility], Pending Sale To [facility] Vaccine Immunization [address] [place] [phone] [facility] [phone] [place], [place] (Work) [phone] Social History Tobacco Use Types Packs/Day [...] How often do you attend jew or yarsanism 1 to 4 times per [...] the highest level of school Associate degree: [employer] program 02/26/2019 you have completed or the highest degree you have received? Sex Assigned at Date Recorded Female 02/27/2019 11:22 AM CDT documented as of this encounter Last Filed Vital Signs Vital Sign Reading Time Taken Comments Blood Pressure 107/65 06/22/2020 11:11 AM LINUX SERVER ADMINISTRATOR Pulse 80 06/22/2020 11:11 AM LINUX SERVER ADMINISTRATOR Temperature 36 ??C (96.8 ??F) 06/22/2020 11:11 AM LINUX SERVER ADMINISTRATOR Respiratory Rate 16 06/22/2020 11:11 AM LINUX SERVER ADMINISTRATOR Oxygen Saturation 100% 06/22/2020 11:11 AM LINUX SERVER ADMINISTRATOR Inhaled Oxygen Concentration - - Weight 78.9 kg (173 lb 15.1 oz) 06/22/2020 11:11 AM LINUX SERVER ADMINISTRATOR Height 174 cm (5' 8.5) 06/22/2020 11:11 AM LINUX SERVER ADMINISTRATOR Body Mass Index 26.06 06/22/2020 11:11 AM LINUX SERVER ADMINISTRATOR documented in this encounter H&P Notes Nelly Avalos M.D. - 06/22/2020 10:45 AM CST SUBJECTIVE CHIEF COMPLAINT / REASON FOR VISIT Yeny Zee is a 30 y.o. female who presents for evaluation of Annual Exam ( control-wants nothing that will gain weight or acne, wants to discuss pcos ), Gynecologic Exam, and Establish Care. HISTORY OF PRESENT ILLNESS ??? Chronic medical conditions ??? None. She has experienced some increased fatigue recently. She recently purchased some vitamin-Dto start taking. She does feel like she has been in a slight funk recently. She reports that this isvery new for her. She does not desire any medication for further intervention of mood at this time. She is open to considering psychology referral and she would like to look at psychology today further. ??? Contraception ?? Currently using: Nothing. ?? History of PCOS and infertility difficulties. She reports that while she was previously attendinginfertility appointments, she later found out that she was two weeks at the time. She desires to be on contraception at this time, but also desires future . She does notice some acne located around her chin and back with PCOS. No hirsutism. Menses occurs every month, and generally varies by several days to weeks. ?? Tried in past: Pill and implanon. She had daily spotting on Implanon. ??? Routine health maintenance ?? Last papsmear Due. ?? Family history colon cancer: None. ?? Family history of breast cancer: None. ?? Weight: BMI 26 ??? Substance use: ?? Alcohol: Once every 2 weeks. 2 glasses at a time. ?? Tobacco: None. ?? Marijuana: None. ?? Other: None. The following portions of the patient's history were reviewed and updated as appropriate: allergies,current medications, family history, medical history, social history, surgical history and problem list. REVIEW OF SYSTEMS Constitutional: Positive for fatigue. Negative for fever and loss of appetite. Skin: Negative for skin rash and change in mole or skin spot. Eyes: Negative for double vision and visual problems. ENT: Negative for difficulty hearing and sinus congestion. Respiratory: Negative for coughing up blood, coughing up mucus (phlegm), dyspnea and wheezing. Cardiovascular: Negative for chest pain, pressure or tightness, swelling in the legs or feet and rapid or fluttering heart beat. Gastrointestinal: Negative for abdominal (belly) pain or cramping, blood in stool, constipation, diarrhea, heartburn, nausea and vomiting. Genitourinary: Negative for difficulty urinating and hematuria. Musculoskeletal: Negative for back pain and joint swelling. Neurological: Positive for light-headedness (Occasionally with standing). Negative for loss of consciousness, numbness or shooting pain in hands, arms, legs, or feet, headaches and blackouts. Psychiatric/Behavioral: Negative for snores loudly. OBJECTIVE BP 107/65 (BP Location: Left arm, Patient Position: Sitting, Cuff Size: Regular) Pulse 80 Temp 36 ??C (Temporal) Resp 16 Ht 174 cm Wt 78.9 kg SpO2 100% BMI 26.06 kg/m?? PHYSICAL EXAM General: Pleasant, alert, in no apparent distress. Well groomed. Eyes: No conjunctival injection or erythema. No purulence. No scleral icterus. Ears: TMs obstructed by cerumen bilaterally. Nose: No gross rhinorrhea or epistaxis. Throat: No masses or lesions. Tongue midline. Neck: Supple. Full ROM. No cervical lymphadenopathy appreciated. Respiratory: Breathing comfortably on room air: no accessory muscle use with breathing. Regular rate. Clear to auscultation bilaterally anteriorly and posteriorly. No wheezes, rales, or rhonchi. Cardiovascular: RRR without murmur, gallop, or rub. No pedal edema bilaterally. Gastrointestinal: Soft, non-tender, and non-distended to palpation. No rebound or guarding. : Normal female external genitalia with no rashes, lesions, or masses. Speculum exam: Vaginal mucosa moist and pink with normal rugae, moderate amount of physiologic discharge present. Cervix pink, and smooth. Bimanual exam reveals normal mobile uterus, no cervical motion tenderness. Rotated anteriorly. Skin: No rashes on exposed skin. Neurologic: No focal neurologic deficits. Normal muscle tone. No tremors or abnormal muscle movementnoted. Alert and oriented to person, place, and time. Psychiatric: Mood: appropriate. Affect: full. Speech: clear, fluent, appropriate rate. ASSESSMENT / PLAN 1. General Medical Examination Adult Routine health maintenance updated as noted below. 2. Pap Smear Examination Completed today. - ThinPrep w/HPV Co-Test Screen 3. Therapy Oral Contraceptive We discussed proceeding with trial of Ortho Tri-Cyclen for possible combined hormonal acne and contraception treatment. - norgestimate-ethinyl estradioL (ORTHO TRI-CYCLEN LO) 0.18/0.215/0.25 mg-25 mcg per tablet; Take 1 tablet by mouth daily. Dispense: 28 tablet; Refill: 12 4. Cerumen Impacted Bilateral Bilateral cerumen impaction noted on exam today. Future nurse only visit ordered to be completed at any time should she desire to have this done. - Primary Care nurse visit (clinic) - [facility]; Ear wash; Bilateral; Future 5. Need Vaccine Immunization Updated today. - influenza vaccine quad (FLUZONE/FLUARIX) (6 months and older) (PF) Nelly Avalos M.D. 06/22/20 X SERVER ADMINISTRATOR documented in this encounter Plan of Treatment Not on filedocumented as of this encounter Procedures Procedure Name Priority Date/Time Associated Diagnosis Comme nts THINPREP W/HPV Routine 06/22/2020 12:39 PM Pap Smear Result s for this CO-TEST SCREEN LINUX SERVER ADMINISTRATOR Examination procedure are in the results section. HPV WITH Routine 06/22/2020 12:39 PM Results for this GENOTYPING, PCR, LINUX SERVER ADMINISTRATOR procedure a re in THINPREP the results section. documented in this encounter Results HPV with Genotyping, PCR, ThinPrep (06/22/2020 12:39 PM LINUX SERVER ADMINISTRATOR) [facility] Method Time Signature Specimen Thin Prep 06/24/2020 DTL Source Vial, 6:20 PM LINUX SERVER ADMINISTRATOR Cervix/Endoc ervix HPV High Risk Negative Negative 06/24/2020 DTL type 16, PCR 6:20 PM LINUX SERVER ADMINISTRATOR HPV High Risk Negative Negative 06/24/2020 DTL type 18, PCR 6:20 PM LINUX SERVER ADMINISTRATOR HPV other Negative Negative 06/24/2020 DTL High Risk 6:20 PM LINUX SERVER ADMINISTRATOR types, PCR Comment: The following Other High Risk HPV types were not detected: 31, 33, 35, 39, 45, 51, 52, 56, 58, 59, 66, and 68 This test was ordered in the context of a [facility] CIGARETTE FILTER INSPECTOR Cytology case; this result should be int erpreted within the context of the CIGARETTE FILTER INSPECTOR cytology report. Specimen Anatomical Collection Method Collection Time Receive d Time (Source) Location / / Volume Laterality Varies 06/22/2020 12:39 06/23/2020 8:12 PM LINUX SERVER ADMINISTRATOR AM LINUX SERVER ADMINISTRATOR Nelly Avalos M.D. LAB MICROBIOLOGY - GENERAL O RDERABLES Performing Organization Address City/State/ZIP Code Phon e Number [facility] - [address] [place], [place] [address] [facility] [place] [address] [facility] [address] ThinPrep w/HPV Co-Test Screen (06/22/2020 12:39 PM LINUX SERVER ADMINISTRATOR) Component Value Ref Test Analysis Performed Pathologis t Range Method Time At Signature 06/27/2020 ECLR 4:05 PM LINUX SERVER ADMINISTRATOR Disclaimer High risk HPV testing, Real-Time Polymerase Chain Reac tion 06/27/2020 ECLR (PCR) was performed on the liquid-based cytology specimen 4:05 PM at [place], [place]. Report TEDDY Hargrove(ASCP) 06/27/2020 ECL R electronically I verify that I have examined all relevant slides/ma terials 4:05 PM signed by for the specimen(s) and rendered or confirmed the diagnosis. LINUX SERVER ADMINISTRATOR Gross Description Received specimen 06/27/2020 ECL R in a ThinPrep 4:05 PM vial. LINUX SERVER ADMINISTRATOR Pap Test Source Cervical/Endocervi 06/27/2020 ECLR brody 4:05 PM LINUX SERVER ADMINISTRATOR Hormone Oral 06/27/2020 ECLR Therapy/Contracep Contraceptives 4:05 PM tives LINUX SERVER ADMINISTRATOR Interpretation Cervical/Endocervical ??(ThinPrep): 06/27/2020 ECLR Satisfactory for Evaluation 4:05 PM Negative for Intraepithelial Lesion or Malignancy LINUX SERVER ADMINISTRATOR ??High Risk HPV testing results are NEGATIVE. See specific genotype results below. HPV with Genotyping, PCR, ThinPrep: ??HPV High Risk Type 16, PCR: ??NEGATIVE ??HPV High Risk Type 18, PCR: ??NEGATIVE ??HPV other High Risk types, PCR: ??NEGATIVE Other High Risk HPV types include: 31, 33, 35, 39, 45, 51, 52, 56, 58, 59, 66, and 68. Specimen Anatomical Collection Method Collection Time Receive d Time (Source) Location / / Volume Laterality Varies 06/22/2020 12:39 06/23/2020 8:12 (Cervix/Endocerv PM LINUX SERVER ADMINISTRATOR AM LINUX SERVER ADMINISTRATOR ix) Narrative This result has an attachment that is no t available. Nelly Avalos M.D. LAB PAP PATHDX ORDERABLES Performing Organization Address City/State/ZIP Code Phon e Number [facility]- [address] [place] [phone] [facility] [place] [address] System [address] documented in this encounter Visit Diagnoses Diagnosis General Medical Examination Adult - Prim adela Pap Smear Examination Therapy Oral Contraceptive Cerumen Impacted Bilateral Need Vaccine Immunization documented in this encounter Additional Health Concerns Assessment Noted Time PHQ-9 Depression Total Score: 10 02/27/2019 11:27 AM C DT documented as of this encounter Care Teams Customer Resolution Specialist Relationship Specialty Start Date End Date Mahi Coombs M.D. PCP - General 11/11/19 11/14/20 [address] [place] [address] documented as of this encounter
--- OUTSIDE RECORDS SUMMARY | 2021-12-19 21:49 | XMS_ITS | Encounter Summary ---
:1990 Author Organization [facility] Address [address] [place] [address] Care Team Providers Name Role Phone Nelly Avalos M.D. Primary Care Provider Encounter Details Date Type Department Care Team Description 04/05/2021 Hospital Encounter Department of Nelly Avalos, Pre gnancy Test Laboratory Medicine in M.D. [address] [phone] Social History Tobacco Use Types Packs/Day Years [...] How often do you attend christian or buddhist 1 to 4 times per year 02/27/2019 [...] highest level of school Associate degree: [employer] program 02/26/2019 you have completed or the highest degree you have received? Sex Assigned at Date Recorded Female 02/27/2019 11:22 AM CDT documented as of this encounter Plan of Treatment Not on filedocumented as of this encounter Procedures Procedure Name Priority Date/Time Associated Comments Diagnosis HUMAN CHORIONIC Routine 04/05/2021 12:20 Test Result s for this GONADOTROPIN (HCG), PM DADO OPERATOR procedur e are in JAIME, the results section. documented in this encounter Results (ABNORMAL) hCG (Human Chorionic Gonadotropin), Quantitative, (04/05/2021 12:20 PM DADO OPERATOR) P athologist Signature HCG, 496 (H) <5 IU/L 04/05/2021 CNFL Quantitative, 12:41 PM DADO OPERATOR , P Comment: Biotin has been identified by the darion fernandez as a potential interfering substance. ??Higher concentr ations of biotin may be found in multivitamins, hair/nail supple ments, and workout supplements. ??If the result does not [facility] clinical observations, repeat testing after patient refrains fr om the use of supplements for at least 12 hours. Specimen Anatomical Collection Method Collection Time Receive d Time (Source) Location / / Volume Laterality Blood (Blood, 04/05/2021 12:20 04/05/2021 Venous) PM DADO OPERATOR 12:22 PM DADO OPERATOR Nelly Avalos M.D. LAB BLOOD ADD-ON Performing Organization Address City/State/ZIP Code Phon e Number [facility]- [address] [place] [phone] [place] [address] System in [address] documented in this encounter Visit Diagnoses Diagnosis Test documented in this encounter Additional Health Concerns Assessment Noted Time PHQ-9 Depression Total Score: 10 02/27/2019 11:27 AM C DT documented as of this encounter Care Teams Forms Examiner Relationship Specialty Start Date End Date Nelly Avalos M.D. PCP - General Family Medicine 11/15/[address] [place] [phone] documented as of this encounter
--- OUTSIDE RECORDS SUMMARY | 2021-12-19 21:49 | XMS_ITS | Encounter Summary ---
:1990 Author Organization [facility] Address [address] [place] [address] Care Team Providers Name Role Phone Nelly Avalos M.D. Primary Care Provider Reason for Visit Reason Onset Date Comments Testing For Upper Respiratory Virus Symptoms 03/10/2021 Encounter Details Date Type Department Care Team Description 03/10/2021 External Outreach Department of Family Juana Wilson Contact With And Medicine, Sam HillAJacki (Suspected) Exposure Clinic, in [place], [address] [place] [address] To COVID-19 (Primary [place], [place] Dx) [address] [facility] [address] [place], [place] [phone] (Work) [phone] Social History Tobacco Use Types Packs/Day Years [...] How often do you attend christian or baptism 1 to 4 times per year 02/27/2019 [...] the highest level of school Associate degree: [employer] program 02/26/2019 you have completed or the highest degree you have received? Sex Assigned at Date Recorded Female 02/27/2019 11:22 AM CDT documented as of this encounter Progress Notes Deandra Richardson R.N. - 03/10/2021 8:51 AM CDT Encounter created for symptomatic infectious disease screening with possible COVID, Influenza, RSV, and/or Group A Strep testing. documented in this encounter Plan of Treatment Not on filedocumented as of this encounter Procedures Procedure Name Priority Date/Time Associated Diagnosis Comme nts SARS CORONAVIRUS-2 Routine 03/10/2021 10:58 AM Contact With An d Results for this RNA, V CDT (Suspected) Exposure procedu re are in To COVID-19 the results section. documented in this encounter Results SARS Coronavirus-2 RNA, V Symptomatic (03/10/2021 10:58 AM CDT) [facility] Method Time Signature SARS-CoV-2 Swab, 03/10/2021 ECLR Specimen Nasopharynx 7:36 PM CDT Source SARS CoV-2 Undetected Undetected 03/10/2021 ECLR RNA, TMA 7:36 PM CDT Comment: SARS-CoV-2 RNA absent. This result does not rule out COVID-19 in the patient, as the sensitivity of the test depends o n the timing of the specimen collection and the quality of the specim en. Result should be correlated with patient's history and clinical presentat ion. ----ADDITIONAL INFORMATION---- This molecular amplification test was pe rformed using the Aptima SARS-CoV-2 assay ([employer] on the Protein Bars tem under emergency use authorization (EUA) by the U.S. Food and Drug Administ ration. Fact sheets for this EUA assay can be fo und at the following links: For Healthcare Providers: https://www.fd a.gov/media/571640/download For Patients: https://www.fda.gov/media/ 973392/download Specimen Anatomical Collection Method Collection Time Receive d Time (Source) Location / / Volume Laterality Varies 03/10/2021 10:58 03/10/2021 2:51 (Nasopharynx) AM CDT PM CDT Al Wilson P.A.-C. LAB MICROBIOLOGY - GENERAL O RDERABLES Performing Organization Address City/State/ZIP Code Phon e Number [facility]- [address] [place] [phone] [facility] [place] [address] System [address] documented in this encounter Visit Diagnoses Diagnosis Contact With And (Suspected) Exposure To COVID-19 - Primary documented in this encounter Additional Health Concerns Infection Onset Date Last Indicated Resolved Time COVID19 Pending 03/10/2021 03/10/2021 03/10/2021 7:37 PM CDT Assessment Noted Time PHQ-9 Depression Total Score: 10 02/27/2019 11:27 AM C DT documented as of this encounter Care Teams Manager Diesel Relationship Specialty Start Date End Date Nelly Avalos M.D. PCP - General Family Medicine 11/15/[address] [place] [phone] documented as of this encounter
--- OUTSIDE RECORDS SUMMARY | 2021-12-19 21:49 | XMS_ITS | Encounter Summary ---
:1990 Author Organization [facility] Address [address] [place] [address] Care Team Providers Name Role Phone Yandel Montgomery M.D. Primary Care Provider Unavailable Encounter Details Date Type Department Care Team Description 03/14/2018 Clinical Communication [facility] Wendy Jimenez L.P.N. and Adolescent Medicine, [facility] in [place], [place] [address] [place] [address] Social History Tobacco Use Types Packs/Day Years [...] 02/27/2019 relatives? How often do you attend zoroastrianism or bahai 1 to 4 times per year 02/27/2019 services? Do you belong to any clubs or organizations such No 02/27/2019 as zoroastrianism groups, unions, fraternal or athletic groups, or [...] Noted Time PHQ-9 Depression Total Score: 4 03/14/2018 3:40 PM CDT documented as of this encounter Care Teams Instrument Tech Relationship Specialty Start Date End Date Mellors, Yandel W, M.D. PCP - General Internal Medicine 11/11/16 12/04/18 documented as of this encounter
--- OUTSIDE RECORDS SUMMARY | 2021-12-19 21:49 | XMS_ITS | Encounter Summary ---
:1990 Author Organization [facility] Address [address] [place] [address] Care Team Providers Name Role Phone Anastasia Coyne D.O. Primary Care Provider [phone] Reason for Visit Reason Comments Annual Exam Appointment Request (Routine) - Closed Specialty Diagnoses / Procedures Referred By Contact Refer red To Contact Family Medicine Referral ID Status Reason Start Date Expiration Date Visits Requ ested Visits Authorized [id number] Closed 01/23/2019 01/23/2020 1 1 Encounter Details Date Type Department Care Team Description 02/27/2019 Comprehensive Visit Department of Doretha Health Maintenance Examination Adult (Primary Dx); Family Anastasia Baez D.O. Infertility Female; [facility] [address] [facility] Polycystic Ovary Syndrome; [facility] [phone] [address] [facility] [phone] [place], [place] (Work) [phone] Social History Tobacco Use Types Packs/Day Years [...] How often do you attend religious or restoration 1 to 4 times per year 02/27/2019 [...] the highest level of school Associate degree: [employer] program 02/26/2019 you have completed or the highest degree you have received? Sex Assigned at Date Recorded Female 02/27/2019 11:22 AM CDT documented as of this encounter Last Filed Vital Signs Vital Sign Reading Time Taken Comments Blood Pressure 104/67 02/27/2019 1:17 PM CDT average Pulse 84 02/27/2019 1:17 PM CDT Temperature - - Respiratory Rate - - Oxygen Saturation - - Inhaled Oxygen Concentration - - Weight 74.5 kg (164 lb 3.9 oz) 02/27/2019 1:17 PM CDT Height 174.3 cm (5' 8.62) 02/27/2019 1:17 PM CDT Body Mass Index 24.52 02/27/2019 1:17 PM CDT documented in this encounter Patient Instructions AttachmentsThe following attachments cannot be sent through Care Everywhere. Letrozole (Anguillan)documented in this encounter H&P Notes Anastasia Coyne D.O. - 02/27/2019 1:30 PM CDT SUBJECTIVE CHIEF COMPLAINT / REASON FOR VISIT Yeny Zee is a 28 y.o. female who presents for evaluation of Annual Exam. HISTORY OF PRESENT ILLNESS Mrs. Zee presents for a general medical exam. She is most concerned with difficulty conceiving. She has a history of PCOS and had seen DIANELYS in 2017but naturally conceived her first child, who is almost 3 yo, after 6-8 months. She has now been trying to conceive for a year and has used an jillian to track ovulation as well as a balance supplement to regulate her hormones, per her report. She stopped the supplement recently, however. She has been getti ng monthly periods although a couple of them have come a week early or late. Her periods are not particularly long. She is taking a PNV. She has used Amie products for her acne most recently. She is interested in a treatment for her acne. The following portions of the patient's history were reviewed and updated as appropriate: allergies,current medications, family history, medical history, social history, surgical history and problem list. REVIEW OF SYSTEMS Constitutional: Positive for fatigue and weight gain of more than 10 pounds. The following systems were negative: Skin, Eyes, ENT, CV, Respiratory, GI, , Hematologic, Musculoskeletal, Neuro, Psych OBJECTIVE BP 104/67 (BP Location: Left arm, Patient Position: Sitting, Cuff Size: Regular) Comment: average Pulse 84 Ht 174.3 cm Wt 74.5 kg BMI 24.52 kg/m?? PHYSICAL EXAM Vitals signs reviewed. Constitutional General: She is not in acute distress. Appearance: She is well-developed. HENT Head: Normocephalic and atraumatic. Mouth/Throat: Pharynx: No oropharyngeal exudate. Eyes Conjunctiva/sclera: Conjunctivae normal. Pupils: Pupils are equal, round, and reactive to light. Neck Musculoskeletal: Normal range of motion and neck supple. Thyroid: No thyromegaly. Cardiovascular Rate and Rhythm: Normal rate and regular rhythm. Heart sounds: Normal heart sounds. No murmur. No friction rub. No gallop. Pulmonary Effort: Pulmonary effort is normal. No respiratory distress. Breath sounds: Normal breath sounds. No wheezing or rales. Abdominal General: Bowel sounds are normal. There is no distension. Palpations: Abdomen is soft. There is no mass. Tenderness: There is no tenderness. There is no guarding or rebound. Lymphadenopathy Cervical: No cervical adenopathy. Skin General: Skin is warm and dry. Findings: No rash. Comments: Closed comedones to chin and jawline noted. Moderate inflammatory in character. Neurological Mental Status: She is alert and oriented to person, place, and time. Cranial Nerves: No cranial nerve deficit. Coordination: Coordination normal. Psychiatric Mood and Affect: Mood normal. Behavior: Behavior normal. Thought Content: Thought content normal. Judgement: Judgment normal. ASSESSMENT / PLAN #1 Health Maintenance Examination Adult Pap up to date. BMI within normal limits. Encourage healthy dietary and exercise habits. #2 Infertility Female #3 Polycystic Ovary Syndrome Will initiate basic workup including TSH, FSH, LH, prolactin, progesterone (to be drawn at day 21 ofcycle or 7 days before next period). If these occur, will refer to DIANELYS. I did provide a paper prescription for letrozole x 3 cycles in the event that tests come back normal. Discussed frequency of intercourse to be starting 5 days before ovulation every 2-3 days. If she does not conceive with these interventions, refer back to DIANELYS. #4 Acne Recommend starting with Neutrogena acne wash and Differin gel for moderate inflammatory acne. She isnot interested in oral medications at this time. Other orders - letrozole (FEMARA) 2.5 mg tablet; Take 1 tablet (2.5 mg total) by mouth as directed. Take on days 3-7 of cycle. Do not use for more than three cycles, Starting Sat02/27/2019, Normal - Thyroid Function [place]; Future; Expected date: 02/27/2019 - Follicle-Stimulating Hormone (FSH), Serum; Future; Expected date: 02/27/2019 - LH (Luteinizing Hormone); Future; Expected date: 02/27/2019 - Prolactin; Future; Expected date: 02/27/2019 - Progesterone Level; Future; Expected date: 03/23/2019 documented in this encounter Plan of Treatment Not on filedocumented as of this encounter Results Prolactin (02/27/2019 2:22 PM [...] D.O. LAB BLOOD ADD-ON Performing Organization Address City/State/ZIP Code Phon e Number [facility] - [address] [place] [phone] [address] LH (Luteinizing Hormone) (02/27/2019 2:22 PM CDT) athologist Signature Luteinizing 8.4 IU/L 02/27/2019 DT [...] D.O. LAB BLOOD ADD-ON Performing Organization Address City/[facility] Phon e Number [facility] - [address] [address] [address] Follicle-Stimulating Hormone (FSH), Serum (02/27/2019 2:22 PM CDT) athologist Signature Follicle-Stim 4.8 IU/L 02/27/2019 [facility] Hormone (FSH), 7:57 PM CDT S Comment: ----REFERENCE VALUE---- Premenopausal: 2.9-14.6 IU/L (Follicular) 4.7-23.2 IU/L (Midcycle) 1.4-8.9 IU/L (Luteal) Postmenopausal: 16.0-157.0 IU/L Specimen Anatomical Collection Method Collection Time Receive d Time (Source) Location / / Volume Laterality Blood (Blood, 02/27/2019 2:22 PM 02/28/20 19 6:06 Venous) CDT PM CDT Anastasia Coyne D.O. LAB BLOOD ADD-ON Performing Organization Address City/[facility] Phon e Number [facility] - [address] [place] [address] [place] [address] Laboratories-[facility] 200 [facility] Thyroid Function [place] (02/27/2019 2:22 PM CDT) P athologist Signature TSH, Sensitive 1.9 0.3 - 4.2 02/27/2019 DT mIU/L 7:57 PM CDT Specimen Anatomical Collection Method Collection Time Receive d Time (Source) Location / / Volume Laterality Blood (Blood, 02/27/2019 2:22 PM 02/28/20 6:06 Venous) CDT PM CDT Anastasia Coyne D.O. LAB BLOOD ADD-ON Performing Organization Address City/State/ZIP Code Phon e Number [facility] - [address] [place] [address] 559 05 [place] [address] documented in this encounter Visit Diagnoses Diagnosis Health Maintenance Examination Adult - P rimary Infertility Female Polycystic Ovary Syndrome Acne documented in this encounter Additional Health Concerns Assessment Noted Time PHQ-9 Depression Total Score: 10 02/27/2019 11:27 AM C DT documented as of this encounter Care Teams Anesthetic Assistant Relationship Specialty Start Date End Date Anastasia Coyne D.O. PCP - General Family Medicine 12/05/18 11/10/[address] [place] [phone] documented as of this encounter
--- OUTSIDE RECORDS SUMMARY | 2021-12-19 21:49 | XMS_ITS | Encounter Summary ---
:1990 Author Organization [facility] Address [address] [place] [address] Care Team Providers Name Role Phone Nelly Avalos M.D. Primary Care Provider Encounter Details Date Type Department Care Team Description 12/13/2020 Clinical Support Department of Trevon Patel, Medicine, [facility], in [address] [phone] [place] [phone] Social History Tobacco Use Types Packs/Day [...] 02/27/2019 relatives? How often do you attend yazdanism or christian 1 to 4 times per year 02/27/2019 services? Do you belong to any clubs or organizations such No 02/27/2019 as yazdanism groups, unions, fraternal or athletic groups, or [...] highest level of school Associate degree: [employer] program 02/26/2019 you have completed or the [...] documented as of this encounter Care Teams Speech Communication Professor Relationship Specialty Start Date End Date Nelly Avalos M.D. PCP - General Family Medicine 11/15/[address] [place] [phone] documented as of this encounter
--- OUTSIDE RECORDS SUMMARY | 2021-12-19 21:49 | XMS_ITS | Encounter Summary ---
:1990 Author Organization [facility] Address [address] [place] [address] Care Team Providers Name Role Phone Nelly Avalos M.D. Primary Care Provider Reason for Referral Specialty Diagnoses / Procedures Referred By Contact Refer red To Contact Nelly Avalos M. D. [address] [phone] Referral ID Status Reason Start Date Expiration Date Visits Requ ested Visits Authorized ER ENGINEER HELPER Encounter Details Date Type Department Care Team Description 03/22/2021 Orders Only RST PCP [facility] Nelly Avalos M.D. [address] [place] [phone] (Wo rk) Social History Tobacco Use [...] How often do you attend sabianism or judaism 1 to 4 times per year 02/27/2019 [...] highest level of school Associate degree: academ [employer] program 02/26/2019 you have completed or the highest degree you have received? Sex Assigned at Date Recorded Female 02/27/2019 11:22 AM CDT documented as of this encounter Plan of Treatment Scheduled Referrals Name Type Priority Associated Order Schedule Diagnoses Covid immunization Outpatient Referral Routine Ex pected: office visit Booster 021 (Approximate), Expires: 03/22/2022 documented as of this encounter Visit Diagnoses Not on filedocumented in this encounter Additional Health Concerns Assessment Noted Time PHQ-9 Depression Total Score: 02/27/2019 11:27 AM C DT documented as of this encounter Care Teams Performance Specialist Relationship Specialty Start Date End Date Nelly Avalos M.D. PCP - General Family Medicine 11/15/[address] [place] [phone] documented as of this encounter
--- OUTSIDE RECORDS SUMMARY | 2021-12-19 21:49 | XMS_ITS | Encounter Summary ---
:1990 Author Organization [facility] Address [address] [place] [address] Care Team Providers Name Role Phone Yandel Montgomery M.D. Primary Care Provider Unavailable Reason for Visit Reason Comments Ear Infection/ Ear Pain Encounter Details Date Type Department Care Team Description 12/27/2017 Office Visit [facility] Wilian Navarro, DOMINICK, C.N.P. [address] [place] [phone] Cerumen Impacted Care at [facility] Saadia Tellez, DOMINICK, C.N.P. [address] [place] [phone] Bilateral (Primary [address] ANALILIA Scott) [place] [address] Social History Tobacco Use Types Packs/Day Years [...] 02/27/2019 relatives? How often do you attend religion or episcopal 1 to 4 times per year 02/27/2019 services? Do you belong to any clubs or organizations such No 02/27/2019 as religion groups, unions, fraternal or athletic groups, or [...] documented as of this encounter Progress Notes Stevenson Patel APRN, C.N.P. - 12/27/2017 2:00 PM CDT CHIEF COMPLAINT Chief Complaint Patient presents with ??? Ear Infection/ Ear Pain HISTORY OF PRESENT ILLNESS: Yeny Zee is a 27 y.o. female presents with complaints of decreased hearing, fullness and itching. History provided by Patient. Patient has had decreased hearing, fullness and itching bilateral. Symptoms have been present for 3 days. Patient has a history of no ear problems. EXAM: General Appearance: Alert, NAD. Ears: Left ear external canal without erythema, edema, or drainage, impacted cerumen removed, ear lavage performed on right ear canal and ear lavage performed on left ear canal. Post ear lavage: Left ear external canal without erythema, edema, or drainage and impacted cerumen removed. Left TM normal. Right ear external canal without erythema, edema, or drainage and impacted cerumen removed. Right TM normal. IMPRESSION/RECOMMENDATIONS/PLAN: #1 Cerumen impaction bilateral Ear lavage performed, OTC preparations for ear wax removal and Follow up prn. Patient has a [facility] online portal account, can view medication list electronically. Ready to learn, no apparent learning barriers were identified; learning preferences include listening. Explained diagnosis and treatment plan; patient/child/caregiver expressed understanding of the content. documented in this encounter Plan of Treatment Not on filedocumented as of this encounter Visit Diagnoses Diagnosis Cerumen Impacted Bilateral - Primary documented in this encounter Additional Health Concerns Assessment Noted Time PHQ-9 Depression Total Score: 4 12/09/2017 2:38 PM CDT documented as of this encounter Care Teams Bacon Skinner Relationship Specialty Start Date End Date Yandel Montgomery M.D. PCP - General Internal Medicine 11/11/16 12/04/18 documented as of this encounter
--- OUTSIDE RECORDS SUMMARY | 2021-12-19 21:49 | XMS_ITS | Encounter Summary ---
:1990 Author Organization [facility] Address [address] [place] [address] Care Team Providers Name Role Phone Mahi Coombs M.D. Primary Care Provider Reason for Visit Reason Comments MRO Review [facility] Encounter Details Date Type Department Care Team Description 09/07/2020 Office Visit Department of Occupational Roz Del Cid M.D. Drug Screen Medicine in [address] [phone] [place] [address] [phone] Social History Tobacco Use Types Packs/Day Years [...] 02/27/2019 relatives? How often do you attend rastafari or confucianist 1 to 4 times per year 02/27/2019 services? Do you belong to any clubs or organizations such No 02/27/2019 as rastafari groups, unions, fraternal or athletic groups, or [...] highest level of school Associate degree: academ [employer] program 02/26/2019 you have completed or the highest degree you have received? Sex Assigned at Date Recorded Female 02/27/2019 11:22 AM CDT documented as of this encounter Progress Notes Leonora Wang L.PGarryN. - 09/07/2020 7:15 AM CDT MRO Review for [facility]. documented in this encounter Plan of Treatment Not on filedocumented as of this encounter Visit Diagnoses Diagnosis Drug Screen documented in this encounter Additional Health Concerns Assessment Noted Time PHQ-9 Depression Total Score: 10 02/27/2019 11:27 AM C DT documented as of this encounter Care Teams Hot Die Picker Relationship Specialty Start Date End Date Mahi Coombs M.D. PCP - General 11/11/19 11/14/[address] [place] [phone] documented as of this encounter
--- OUTSIDE RECORDS SUMMARY | 2021-12-19 21:49 | XMS_ITS | Encounter Summary ---
:1990 Author Organization [facility] Address [address] [place] [address] Care Team Providers Name Role Phone Nelly Avalos M.D. Primary Care Provider Encounter Details Date Type Department Care Team Description 03/10/2021 Admin Visit [facility] [address] [facility] [address] [place] [phone] (Wo rk) Social History Tobacco Use Types [...] 02/27/2019 relatives? How often do you attend mu-ism or confucianist 1 to 4 times per year 02/27/2019 services? Do you belong to any clubs or organizations such No 02/27/2019 as mu-ism groups, unions, fraternal or athletic groups, or [...] highest level of school Associate degree: academ [employer] program 02/26/2019 you have completed or the [...] documented as of this encounter Care Teams Dry Wall Installations Mechanic Relationship Specialty Start Date End Date Nelly Avalos M.D. PCP - General Family Medicine 11/15/[address] [place] [phone] documented as of this encounter
--- OUTSIDE RECORDS SUMMARY | 2021-12-19 21:49 | XMS_ITS | Encounter Summary ---
:1990 Author Organization [facility] Address [address] [place] [address] Care Team Providers Name Role Phone Yandel Montgomery M.D. Primary Care Provider Unavailable Encounter Details Date Type Department Care Team Description 06/10/2017 - Hospital Encounter HX RST UNIT 3-2 06/13/2017 OBSTETRICS Social History Tobacco Use Types Packs/Day Years [...] 02/27/2019 relatives? How often do you attend moravian or adventism 1 to 4 times per year 02/27/2019 services? Do you belong to any clubs or organizations such No 02/27/2019 as moravian groups, unions, fraternal or athletic groups, or [...] Sign Reading Time Taken Comments Blood Pressure 118/54 06/13/2017 8:11 AM COSMETIC SALES Pulse 71 06/13/2017 8:11 AM COSMETIC SALES Temperature - - Respiratory Rate 16 06/13/2017 8:11 AM COSMETIC SALES Oxygen Saturation - - Inhaled Oxygen - - Concentration Weight 96.3 kg (212 lb 4.9 06/10/2017 2:35 PM Vital sign result oz) COSMETIC SALES from [facility]. Height 174 cm (5' 8.5) 06/10/2017 2:35 PM Vital sig n result COSMETIC SALES from [facility]. Body Mass Index 31.81 06/10/2017 2:35 PM COSMETIC SALES documented in this encounter Medications at Time of Discharge [...] Name Priority Date/Time Associated Diagnosis Comme nts HX SYPHILIS Routine 06/10/2017 10:28 AM Results for this ANTIBODY CASCADE, S COSMETIC SALES procedur e are in the results section. documented in this encounter Results HX Syphilis Antibody Dolliver, S (06/10/2017 10:28 AM COSMETIC SALES) [facility] gist Method Time Signature HX Syphilis Negative Negative [facility] - W/Reflex, S [facility] Comment: No serologic evidence of exposu re to syphilis. Specimen Anatomical Collection Method Collection Time Receive d Time (Source) Location / / Volume Laterality 06/10/2017 10:28 06/10/2017 AM COSMETIC SALES 10:28 AM COSMETIC SALES Michael Rodriguez D.O. LAB HISTORICAL ORDERS Performing Organization Address City/State/ZIP Code Phon e Number [facility] - [address] [place], [place] [address] [facility] documented in this encounter Visit Diagnoses Not on filedocumented in this encounter Care Teams Rn Nicu Relationship Specialty Start Date End Date Yandel Montgomery M.D. PCP - General Internal Medicine 11/11/16 12/04/18 documented as of this encounter
--- OUTSIDE RECORDS SUMMARY | 2021-12-19 21:50 | XMS_ITS | Encounter Summary ---
:1990 Author Organization [facility] Address [address] [place] [address] Care Team Providers Name Role Phone Yandel Montgomery M.D. Primary Care Provider Unavailable Encounter Details Date Type Department Care Team Description 05/06/2017 Hospital Encounter HX RST LABOR&DELIVERY Maria Fernanda Bernard, NURS R.N. [address] [place] [address] Social History Tobacco Use Types Packs/Day Years [...] 02/27/2019 relatives? How often do you attend latter-day or baptism 1 to 4 times per year 02/27/2019 services? Do you belong to any clubs or organizations such No 02/27/2019 as latter-day groups, unions, fraternal or athletic groups, or [...] on filedocumented in this encounter Care Teams Simulation Developer Relationship Specialty Start Date End Date Yandel Montgomery M.D. PCP - General Internal Medicine 11/11/16 12/04/18 documented as of this encounter
--- OUTSIDE RECORDS SUMMARY | 2021-12-19 21:50 | XMS_ITS | Encounter Summary ---
:1990 Author Organization [facility] Address [address] [place] [address] Care Team Providers Name Role Phone Yandel Montgomery M.D. Primary Care Provider Unavailable Encounter Details Date Type Department Care Team Description 01/23/2017 Telemedicine Department of Obstetrics and Gynecology Social [...] 02/27/2019 relatives? How often do you attend rastafarian or zoroastrian 1 to 4 times per year 02/27/2019 services? Do you belong to any clubs or organizations such No 02/27/2019 as rastafarian groups, unions, fraternal or athletic groups, or [...] Date/Time Associated Comments Diagnosis OBSTETRICS AND Routine 01/23/2017 1:25 PM Results for this GYNECOLOGY IMAGE CDT procedure a re in EXAM the results section. documented in this encounter Results OBSTETRICS AND GYNECOLOGY IMAGE EXAM (01/23/2017 1:25 PM CDT) Specimen (Source) Anatomical Collection Method Collection Time Re ceived Time Location / / Volume Laterality 01/23/2017 1:22 PM CDT Narrative [facility] - 01/23/2017 2:15 PM CDT This order has been created and auto-finalized [...] on filedocumented in this encounter Care Teams Pit Crane Operator Relationship Specialty Start Date End Date Yandel Montgomery M.D. PCP - General Internal Medicine 11/11/16 12/04/18 documented as of this encounter
--- OUTSIDE RECORDS SUMMARY | 2021-12-19 21:50 | XMS_ITS | Encounter Summary ---
:1990 Author Organization [facility] Address [address] [place] [address] Care Team Providers Name Role Phone Yandel Montgomery M.D. Primary Care Provider Unavailable Encounter Details Date Type Department Care Team Description 05/06/2017 Hospital Encounter HX RST LABOR&DELIVERY OP Yariel Johnson, OB Hiram [address] [place] [address] Social History Tobacco Use Types Packs/Day Years [...] 02/27/2019 relatives? How often do you attend shinto or cheondoism 1 to 4 times per year 02/27/2019 services? Do you belong to any clubs or organizations such No 02/27/2019 as shinto groups, unions, fraternal or athletic groups, or [...] daily. prenat.vits,brody,min-iron- Take 1 tablet by 0 /09/201605/12/2020 folic ( VITAMIN) mouth daily. tablet documented as of this encounter Plan of Treatment Not on filedocumented as of this encounter Visit Diagnoses Not on filedocumented in this encounter Care Teams Fitness Management Director Relationship Specialty Start Date End Date Yandel Montgomery M.D. PCP - General Internal Medicine 11/11/16 12/04/18 documented as of this encounter
--- OUTSIDE RECORDS SUMMARY | 2021-12-19 21:50 | XMS_ITS | Encounter Summary ---
:1990 Author Organization [facility] Address [address] [place] [address] Care Team Providers Name Role Phone Yandel Montgomery M.D. Primary Care Provider Unavailable Encounter Details Date Type Department Care Team Description 01/02/2017 Telemedicine Department of Obstetrics and Gynecology Social [...] 02/27/2019 relatives? How often do you attend congregation or restorationism 1 to 4 times per year 02/27/2019 services? Do you belong to any clubs or organizations such No 02/27/2019 as congregation groups, unions, fraternal or athletic groups, or [...] Date/Time Associated Comments Diagnosis OBSTETRICS AND Routine 01/02/2017 8:55 AM Results for this GYNECOLOGY IMAGE CDT procedure a re in EXAM the results section. documented in this encounter Results OBSTETRICS AND GYNECOLOGY IMAGE EXAM (01/02/2017 8:55 AM CDT) Specimen (Source) Anatomical Collection Method Collection Time Re ceived Time Location / / Volume Laterality 01/02/2017 8:55 AM CDT Narrative [facility] - 01/02/2017 10:11 AM CDT This order has been created and [...] on filedocumented in this encounter Care Teams Planograph Operator Relationship Specialty Start Date End Date Yandel Montgomery M.D. PCP - General Internal Medicine 11/11/16 12/04/18 documented as of this encounter
--- OUTSIDE RECORDS SUMMARY | 2021-12-19 21:50 | XMS_ITS | Encounter Summary ---
:1990 Author Organization [facility] Address [address] [place] [address] Care Team Providers Name Role Phone Unavailable Primary Care Provider Unavailable Encounter Details Date Type Department Care Team Description 02/06/2015 Hospital Encounter HX RST EMERGENCY Provider, Historic al TRAUMA UNI Social History Tobacco Use Types Packs/Day Years [...] 02/27/2019 relatives? How often do you attend jainism or episcopalian 1 to 4 times per year 02/27/2019 services? Do you belong to any clubs or organizations such No 02/27/2019 as jainism groups, unions, fraternal or athletic groups, or [...]
--- OUTSIDE RECORDS SUMMARY | 2021-12-19 21:50 | XMS_ITS | Encounter Summary ---
:1990 Author Organization [facility] Address [address] [place] [address] Care Team Providers Name Role Phone Unavailable Primary Care Provider Unavailable Encounter Details Date Type Department Care Team Description 02/10/2015 Hospital Encounter HX RST EMERGENCY Provider, Historic [...] How often do you attend presybeterian or buddhist 1 to 4 times per [...] Procedure Name Priority Date/Time Associated Comments Diagnosis HX MICROBIOLOGY Routine 02/10/2015 10:19 Results for this REPORTS AM CDT procedure are i n the results section. MICROSCOPIC MANUAL Routine 02/10/2015 10:19 Resul ts for this AM CDT procedure are i n the results section. GRAM'S STAIN, Routine 02/10/2015 10:19 Results fo r this CONFIRMATORY, U AM CDT procedure ar e in the results section. GRAM'S ST, U Routine 02/10/2015 10:19 Results for this AM CDT procedure are i n the results section. URINALYSIS WITH Routine 02/10/2015 10:19 Results for this MICROSCOPIC AM CDT procedure are i n the results section. DIPSTICK, POCT, U Routine 02/10/2015 9:57 AM Resu lts for this (DIPC1) CDT procedure are i n the results section. documented in this encounter Results Microbiology Reports (02/10/2015 10:19 AM CDT) Specimen Anatomical Collection Method Collection Time Receive d Time (Source) Location / / Volume Laterality 02/10/2015 10:19 02/10/2015 AM CDT 10:47 AM CDT Narrative [facility] - 02/11/2015 8:12 AM CDT 10-FEB-2015 URINE, MIDSTREAM, ?SoftOrd# [id number] ?(Ordered 10-FEB-2015; Collec haile 10-FEB-2015 10:19; Received 10-FEB-2015 10:46) ?[facility] ?BACTERIAL CULTURE, AEROBIC + GUILLERMO SC ? (Reported 11-FEB-2015 08:12) FINAL ?Mixed bobby. Procedure Note 08/20/2017 10-FEB-2015 URINE, MIDSTREAM, SoftOrd# [id number] (Ordered 10-FEB-2015; Collected 2014 10:19; Received 10-FEB-2015 10:46) [facility] BACTERIAL CULTURE, AEROBIC + SUSC (Rep orted 11-FEB-2015 08:12) FINAL Mixed bobby. Jarrett Jeffrey M.D. LAB MICROBIOLOGY - GENERAL O RDERABLES Performing Organization Address City/State/ZIP Code Phon e Number [facility] - [address] [place] [phone] 05 [facility] (ABNORMAL) Gram Stain, Confirmatory, Urine (02/10/2015 10:19 AM CDT) [facility] gist Method Time Signature Grams Stain, Positive (A) [facility] Confirmatory, LABORATORIES - Urine [facility] Comment: Many Gram-negative bacilli ? Many Gram-positive bacilli ? Bacteria on epithelial cells ? Specimen Anatomical Collection Method Collection Time Receive d Time (Source) Location / / Volume Laterality 02/10/2015 10:19 02/10/2015 AM CDT 10:19 AM CDT Jarrett Jeffrey M.D. LAB URINE ORDERABLES Performing Organization Address City/State/ZIP Code Phon e Number [facility] - [address] [place], [place] [address] [facility] Urinalysis with Microscopic (02/10/2015 10:19 AM CDT) [facility] gist Method Time Signature Source Midstream [facility] Osmolality, 409 150 - [facility] 24 HR, U 1150 LABORATORIES - MOSM/KG [facility] Glucose 2 0 - 15 [facility] MG/DL [facility] Protein, U 5 <22 MG/DL [facility] Comment: ? ADDITIONAL INFORMATIO N ? On 11/23/2013 the total protein assay me thod changed resulting ? in approximately a 20% increase in prote in values. ? Protein/Osmolality 0.12 <0.27 [facility] Comment: ? ADDITIONAL INFORMATIO N ? On 11/23/2013 the total protein assay me thod changed resulting ? in approximately a 20% increase in prote in values. ? Predicted 24 Hr Protein 99 MG/24 H [place] [facility] Predicted Range 25-402 MG/24 H [facility] [place] [facility] Hemoglobin, QL Negative Negative [facility] pH, 24 HR, U 5.7 4.5 - 8.0 [facility] LABOR [facility] Appearance Normal Normal [facility] Specimen Anatomical Collection Method Collection Time Receive d Time (Source) Location / / Volume Laterality 02/10/2015 10:19 02/10/2015 AM CDT 10:19 AM CDT Jarrett Jeffrey M.D. LAB URINE ORDERABLES Performing Organization Address City/[facility]/ZIP Code Phon e Number [facility] - [address] [place] [address] [facility] Gram Stain, Urine (02/10/2015 10:19 AM CDT) P athologist Signature Gram's Stain, . [facility] Screen, U [facility] Comment: Screen positive. See Gram Stain Confirma tory for staining ? result. ? Specimen Anatomical Collection Method Collection Time Receive d Time (Source) Location / / Volume Laterality 02/10/2015 10:19 02/10/2015 AM CDT 10:19 AM CDT Jarrett Jeffrey M.D. LAB URINE ORDERABLES Performing Organization Address City/[facility]/ZIP Code Phon e Number [facility] - [address] [place] [address] [facility] (ABNORMAL) Microscopic Manual (02/10/2015 10:19 AM CDT) Patholo gist Method Time Signature Microscopy Abnormal [facility] WBC 1-3 1-3 [facility] (Males); LABORATORIES - 1-10 [facility] (Females) CAMPUS /HPF Squamous 1-3 /HPF [facility] Epithelial LABORATORIES - [facility] Bacteria Present (A) [facility] Specimen Anatomical Collection Method Collection Time Receive d Time (Source) Location / / Volume Laterality 02/10/2015 10:19 02/10/2015 AM CDT 10:19 AM CDT Jarrett Jeffrey M.D. LAB URINE ORDERABLES Performing Organization Address City/[facility] Code Phon e Number [facility] - [address] [place] [address] [facility] Dipstick, POCT, Urine (lab) (02/10/2015 9:57 AM CDT) [facility] gist Method Time Signature Ketone, POCT, Negative Negative [facility] U LABORATORIES - [facility] Specific 1.010 1.001 - [facility] [place], 1.035 LABORATORIES - POCT, U [facility] Protein, Negative Negative [facility] POCT, [facility] Urobilinogen, 0.2 0.2 - 1.0 [facility] POCT, Urine LABORATORIES [facility] Glucose, Negative Negative [facility] POCT, [facility] Bilirubin, Negative Negative [facility] POCT, [facility] Blood, POCT, Negative Negative [facility] U [facility] pH, POCT, 5.5 5.0 - 8.0 [facility] Urine LABORATORIES [facility] Nitrites, Negative Negative [facility] POCT, [facility] Leukocytes, Negative Negative [facility] POCT, [facility] Specimen Anatomical Collection Method Collection Time Receive d Time (Source) Location / / Volume Laterality 02/10/2015 9:57 AM 5 9:57 CDT AM CDT Historical Provider LAB POCT ORDERABLES - DEVICE Performing Organization Address City/[facility]/ZIP Code Phon e Number [facility] - [address] [place] [phone] [facility] documented in this encounter Visit Diagnoses Not on filedocumented in this encounter
--- NOTE | 2021-12-21 16:27 | PC.OBNST ---
NST Note NST Note Start: 12/12/21 11:18 Freq: ONCE Status: Active Protocol: Document 12/12/21 14:18 [facility] (Rec: 12/12/21 14:21 [facility] [id number]) NST Note 2 Para (# of births) 1 EDC 12/10/21 Patient Presented with Complaint(s) of Contractions/cramping Other Complaints Patient presented with contractions that she stated were approximately 3 to 5 minutes apart. She denies bleeding and leaking of fluids upon arrival. While patient was here and about to be discharged, she questioned leaking of fluids so an amnisure was collected and was negative. Reactive Yes Appropriate for Gestational Age Yes KRYS Romano RN Date 12/12/21 Reactive Yes Appropriate for Gestational Age Yes KRYS Juarez RN Date 12/12/21 OB NST charge Yes The provider's electronic signature indicates the NST is reactive/appropriate for gestational age. *Note to provider: If an addendum is required, open the patient's chart and click on the note under the Nurse/Allied Health tab.
== END 2021-12-12 14:30 | disposition home or self-care (01) ==
LOC: OB OUT 11:15 → OB 11:19
PROVIDERS: Obstetrics & Gynecology; Visit Provider Advanced Practice Midwife
DX: O47.03 False labor before 37 completed weeks of gestation, third trimester (principal)
CPT/HCPCS: 59025; 84112; 99213; A9270; J2270

== ENCOUNTER 2021-12-12 20:55 | Inpatient (IN) | payer OTHER, SELFPAY ==
[2021-12-12] VITALS (54 sets, daily range): BP systolic 79–150; BP diastolic 42–92; PULSE 90–146; RESP 16–20; TEMP 37.1; O2SAT 94–100
[2021-12-12 20:40] LABS: Amnisure Rom* POSITIVE
[2021-12-12 20:45] LABS: Hematocrit 40.4 % (33.0-51.0); Lymphocytes Percent Auto 3.6 % (20-44); Mean Corpuscular HGB Conc 35 gm/dL (32-36); Mean Corpuscular Hemoglobin 33 pg (26-34); Mean Corpuscular Volume 95 fL (80-100); Neutrophils Percent Auto 93.4 % (42.0-72.0); Platelet Count* 252 K/uL (140-440); Red Blood Count 4.26 m/uL (4.00-5.20); White Blood Count* 19.63 K/uL (4.50-11.00)
[2021-12-12 20:46] LABS: Slide Review Reflex No
[2021-12-12] MEDS: fentaNYL 100 MCG/2 ML inj IVP (20:59)
[2021-12-12] MEDS: ONDANSETRON 2 MG/ML inj 4 MG IV (20:59)
[2021-12-12] MEDS: LACTATED RINGERS 1000 ML 1,000 ML 125 ML IV ×2 (21:09→22:08)
--- NOTE | 2021-12-12 22:03 | P.LDBA_ITS ---
Subjective History of Present Illness Date Seen: 12/12/21 Narrative: Patient is being admitted to Labor and Delivery for labor. She is a 31 year old -0-0-1 at 40 weeks, 3 days gestation by 1st trimester ultrasound not consistent with LMP, LEIGH ANN 12/10/2021. H&P done 11/22/[address] Michele. Please refer to this for full detail. Specific Issues/Plans Blood type:?B positive Boyfriend/FOB: Jonatan. This is Jonatan's first child. Baby: Boy. Tywin Boy at home:? Jim. 1.? Status post for bradycardia * Operative report is scanned, 2 layer closure * Chance of successful :? 79.4% 2.? Patient desires * consent signin11/22/21 * Growth ultrasound 36 weeks: EFW 7# 5 oz (69%), SDP 4.8 cm.? Left renal pelvis prominent (1.0 cm) 3.? COVID vaccinated, due for booster. 4.? Severe cystic acne * Initiated topical clindamycin solution * BV 06/01/2021:? Elected to treat with clindamycin as it may calm down cystic acne as well.? * 06/08/2021:? Severe cystic acne with superimposed cellulitis.? Amoxicillin 500 mg p.o. three times daily for 10 days prescribed.? * Amoxicillin 500 mg daily 5. Echogenic foci L ventricle * negative MaterniT 21 * Level 2 US: not done 6.?Left renal pelviectasis measuring 10.4 millimeters considered abnormal in the 3rd trimester. follow-up recommended. weeks gestation. Her full history and physical was dictated by [] on []. Please see this for details. [] OB - H&P: Exam Physical Exam: Vital signs: Temp Pulse Resp BP Pulse Ox 98.7 F 131 H 16 136/70 100 12/12/21 19:40 12/12/21 22:01 12/12/21 19:40 12/12/21 22:01 12/12/21 22:00 Narrative: Physical exam: General: No acute distress Psych: Alert and oriented x3, full affect HEENT: Normocephalic, atraumatic Heart: Regular rate and rhythm, no murmur rub or gallop Lungs: Clear to auscultation bilaterally Abdomen: Soft, nontender, gravid, cephalic Lower extremities: 2+ edema Pelvic exam: Per RN at time of presentation, 4 cm, 100%,-1 station. AmniSure was positive. Repeat exam per RN at 2255 was 6 / 100 / -1 tracing exhibited baseline of 140, accelerations present, initially with no decelerations and moderate variability. OB - Problem Based A/P Additional Plan (1) Encounter for trial of labor: Status: Acute Plan 31-year-old [id number] woman at 40 weeks, 2 days gestation presenting in early labor. Previous delivery for indications. Reassuring status GBS negative Delivery/Labor/Induction Plan Plan: expectant management (Patient desires epidural. Continuous monitoring.)
[2021-12-12] MEDS: ROPIVACAINE 0.2% 100 ml 100 ML 12 MG EPIDURAL (22:05)
[2021-12-12] MEDS: LIDOCAINE 2% (PF) 5 ML VIAL EPIDURAL (22:05)
--- NOTE | 2021-12-12 22:09 | PM.ANBPRC ---
PFSH PFS Social History Smoking Status: Never smoker Meds Home Medications and Allergies Home Medications Medication Instructions Recorded Confirmed Type amoxicillin 500 mg tablet mg PO DAILY 11/22/21 12/06/21 History prenat.vits,brody,[id number] 1 tab PO QDAY 11/22/21 12/12/21 History Allergies Allergy/AdvReac Type Severity Reaction Status Date / Time No Known Allergies Allergy Unverified 12/06/21 13:36 Results Labs Labs: Laboratory Results - last 24 hr 12/12/21 12/12/21 12/12/21 19:58 20:35 20:35 WBC 19.63 H RBC 4.26 Hgb 14.0 Hct 40.4 MCV 95 MCH 33 MCHC 35 RDW Coeff of Ron 14.0 Plt Count 252 Neut % (Auto) 93.4 H Lymph % (Auto) 3.6 L Towns % (Auto) 2.0 Eos % (Auto) 0.0 Baso % (Auto) 0.0 Neut # (Auto) 18.30 H Lymph # (Auto) 0.70 L Towns # (Auto) 0.40 Eos # (Auto) 0.00 Baso # (Auto) 0.00 Abs Immat Gran (auto) 0.20 Membrane Rupture POSITIVE Blood Type B Positive Antibody Screen NEGATIVE Vital Signs Vital Signs: Last Vital Signs Temp 98.7 F 12/12/21 19:40 Pulse 123 H 12/12/21 22:08 Resp 16 12/12/21 19:40 BP 137/73 12/12/21 22:08 Pulse Ox 100 12/12/21 22:00 Anesthesia Procedures Epidural Insertion Patient Location: OB Start Time: :55 Stop Time: 10:55 Start Date: 12/12/21 Reason for Block: procedure for pain Patient Position: sitting Performed By: Adelfo Fitzpatrick Preanesthetic Checklist: IV checked, site marked, risks and benefits discussed, surgical consent, monitors and equipment checked, pre-op evaluation, timeout performed and anesthesia consent Prep: chlorhexidine gluconate Monitoring: blood pressure monitoring, continuous pulse oximetry and heart rate Approach: midline Vertebral Space: lumbar (1-5) Epidural Technique: GLEN saline Needle Type: Tuohy needle Injection Technique: continuous catheter Needle gauge: 18 Needle Length (cm): 10 cm Needle Insertion Depth (cm): 6 Catheter Gauge: 20 Catheter Type: multi-orifice Catheter at skin depth (cm): 11 Test Dose Result: negative and lidocaine 1.5% with epinephrine 1 to 200,000
[2021-12-12 22:43] LABS: SARS PCR* Negative SARS-CoV-2 (Negative)
[2021-12-13] VITALS (79 sets, daily range): BP systolic 92–135; BP diastolic 50–72; PULSE 73–144; RESP 16–20; TEMP 36.4–37.4; O2SAT 92–98
[2021-12-13] MEDS: ONDANSETRON 2 MG/ML inj 4 MG IV (05:07)
[2021-12-13] MEDS: LACTATED RINGERS 1000 ML 1,000 ML 125 ML IV (05:18)
[2021-12-13] MEDS: OXYTOCIN 30 unit/500 ML in NS 30 UNIT/500 ML BAG 300 UNIT IVPB (05:19)
--- NOTE | 2021-12-13 05:27 | PM.OBPNL ---
Pain Control Time Seen by Provider: 05:00 Date Seen: 12/13/21 Pain control: epidural Comments: Yeny is sleeping when I enter. She had no complaints. Contractions Contraction frequency: 3 Contraction pattern: Regular Pelvic Exam Dilation (cm): anterior lip Effacement (%): 100 Station: 0 Comments: suspect OP presentation Fetus (Single) status: Category l (Baseline 150 / accels present / no decels / moderate variability. ) Comments: Previous SROM was noted. However, forebag noted on exam. AROM for light meconium stained fluid. Assessment and Plan Assessment: active labor Plan: begin Pitocin augmentation Comments: Protracted active phase, but nearing onset of second stage. Reassuring status with light meconium now noted. Continuous monitoring. Begin pitocin augmentation. Reassess in 2 hrs or with urge to push.
[2021-12-13] MEDS: ROPIVACAINE 0.2% 100 ml 100 ML 12 MG EPIDURAL (05:49)
--- NOTE | 2021-12-13 07:32 | PM.OBPNL ---
Pain Control Time Seen by Provider: 07:32 Date Seen: 12/13/21 Pain control: epidural Comments: Feeling a little pressure with contractions. Currently lying on right side with peanut ball. Contractions Monitor mode: External Contraction frequency: 4 Contraction pattern: Regular Contraction intensity: Moderate Pelvic Exam Dilation (cm): 10 Effacement (%): 100 Station: 0 Comments: @0651 per nursing staff. OP position. Fetus (Single) status: Category l (Baseline 150 / accels present / no decels / moderate variability. ) Assessment and Plan Assessment: active labor Comments: Anticipate pushing to begin soon. Maternal positioning to encourage rotation.
[2021-12-13] MEDS: LIDOCAINE 1 % PF 30 ML INJECTION (08:40)
--- NOTE | 2021-12-13 09:22 | PM.OBPRCVD ---
Procedure Delivery date: 12/13/21 Procedure Done: Global Events: Previous and Meconium Stained Fluid Delivery augmentation: pitocin Delivery monitor: external FHT and external uterine Route of delivery: Laceration description: Vaginal - 2nd Degree Delivery repair: Chromic Estimated blood loss (mL): 150 Anesthesia type: Epidural Disposition: floor Narrative: The patient is a 31 year-old admitted on 12/12/2021 at 40 Weeks, 2 Days gestation for labor.? Cervical exam on admission was 4 cm/100 % effaced/-1 station with membranes ruptured in vertex presentation.? ? heart rate demonstrated baseline 140 bpm with moderate variability, + accelerations, - decelerations; a category 1 tracing.? SROM occurred at 1900 with initially clear fluid. ? Labor Analgesia:? Epidural ? Pitocin:? Yes ? Labor onset:? 2100 ? Complete:? 0655 on 12/13/2021 ? Pushing:? 0820 ? heart tones during second stage were category 1. ? At 0837 a viable male delivered in vertex OA presentation over intact perineum via spontaneous vaginal delivery.? Infant was placed on maternal abdomen.? Cord was clamped and cut after a 30-60 second delay.? Nose and mouth were bulb suctioned.? Infant weight pending.? 8 at 1 minute and 9 at 5 minutes.? Shoulder dystocia: no.? Nuchal cord: no. ? Placenta delivered spontaneously and complete at 0841 with a 3 vessel cord. ? Mother and were stable after delivery. ? Lacerations:? 2nd degree vaginal and 1st degree right periurethral with right labial extension, repaired with 3-0 chromic. ? Blood loss: 150 mL. Blood loss measurement type: EBL (blood and clots lost on floor, so QBL not possible) ? Sponge and needles counts are correct. Infant Gender: Male presentation: vertex Placental Delivery Description: Spontaneous Cord Description: 3 Vessels
[2021-12-13] MEDS: ACETAMINOPHEN 500 MG TABLET 1000 MG PO ×2 (11:10→17:12)
[2021-12-13] MEDS: IBUPROFEN 600 MG TABLET PO ×2 (14:11→21:59)
[2021-12-13] MEDS: LANOLIN CREAM 1 APPLIC TOPICAL (14:22)
[2021-12-13 17:30] LABS: HIV 1/2/P24 Combo Screen* Negative (Negative)
[2021-12-13 17:37] LABS: Hepatitis C Virus Antibody* Negative (Negative)
[2021-12-14 00:40] VITALS: BP 106/65; PULSE 81; RESP 16; TEMP 36.4; O2SAT 96
[2021-12-14] MEDS: ACETAMINOPHEN 500 MG TABLET 1000 MG PO (00:45)
[2021-12-14 04:30] VITALS: BP 111/67; PULSE 71; RESP 16; TEMP 36.6; O2SAT 98
[2021-12-14 07:08] LABS: Hemoglobin* 10.6 gm/dL (12.0-16.0)
[2021-12-14] MEDS: IBUPROFEN 600 MG TABLET PO (07:25)
[2021-12-14 07:33] VITALS: BP 107/68; PULSE 76; RESP 16; TEMP 36.9; O2SAT 98
--- NOTE | 2021-12-14 08:02 | P.DS_ITS ---
DS: Providers Provider Date Seen: 12/14/21 Date of admission: 12/12/21 20:55 Primary care physician: Not a Local Provider Admitting Clinician: Rhiannon Hutton MD Attending Physician on discharge: Rhiannon Hutton MD Date of Discharge: 12/14/21 Exam Const: Vital Signs, click to edit/add: Vital Signs - 24 hr 12/13/21 08:10 12/13/21 08:39 12/13/21 08:54 Temperature Pulse Rate 106 H 144 H 120 H Pulse Rate [Pulse Oximeter] Respiratory Rate Blood Pressure 130/68 117/57 L 119/65 Blood Pressure [Le ft Arm] Pulse Oximetry Oxygen Delivery [facility] 12/13/21 09:09 12/13/21 09:24 12/13/21 09:39 Temperature Pulse Rate 117 H 111 H 107 H Pulse Rate [Pulse Oximeter] Respiratory Rate Blood Pressure 126/56 L 126/64 135/65 Blood Pressure [Le ft Arm] Pulse Oximetry Oxygen Delivery [facility] 12/13/21 09:54 12/13/21 10:09 12/13/21 10:24 Temperature Pulse Rate 118 H 100 115 H Pulse Rate [Pulse Oximeter] Respiratory Rate Blood Pressure 131/61 128/62 126/63 Blood Pressure [Le ft Arm] Pulse Oximetry Oxygen Delivery [facility] 12/13/21 10:39 12/13/21 10:54 12/13/21 08:15 Temperature 98.8 F Pulse Rate 116 H 129 H Pulse Rate [Pulse Oximeter] Respiratory Rate Blood Pressure 133/65 128/66 Blood Pressure [Le ft Arm] Pulse Oximetry Oxygen Delivery [facility] 12/13/21 09:00 12/13/21 09:15 12/13/21 09:30 Temperature 98.8 F Pulse Rate Pulse Rate [Pulse Oximeter] Respiratory Rate 16 16 16 Blood Pressure Blood Pressure [Le ft Arm] Pulse Oximetry Oxygen Delivery [facility] 12/13/21 08:45 12/13/21 10:00 12/13/21 11:10 Temperature 98.8 F Pulse Rate Pulse Rate [Pulse Oximeter] Respiratory Rate 16 16 Blood Pressure Blood Pressure [Le ft Arm] Pulse Oximetry Oxygen Delivery [facility] 12/13/21 10:15 12/13/21 10:30 12/13/21 10:45 Temperature Pulse Rate Pulse Rate [Pulse Oximeter] Respiratory Rate 16 16 16 Blood Pressure Blood Pressure [Le ft Arm] Pulse Oximetry Oxygen Delivery Me thod 12/13/21 11:00 12/13/21 12:38 12/13/21 10:30 Temperature 99.3 F 99 F Pulse Rate Pulse Rate [Pulse Oximeter] 112 H Respiratory Rate 16 16 Blood Pressure Blood Pressure [Le ft Arm] 106/62 Pulse Oximetry 96 Oxygen Delivery Tx thod Room Air 12/13/21 14:11 12/13/21 12:10 12/13/21 15:10 Temperature 98.1 F 98.1 F 98.1 F Pulse Rate Pulse Rate [Pulse Oximeter] Respiratory Rate Blood Pressure Blood Pressure [Le ft Arm] Pulse Oximetry Oxygen Delivery Me thod 12/13/21 16:24 12/13/21 17:12 12/14/21 00:40 Temperature 98.2 F 98.1 F 97.5 F L Pulse Rate Pulse Rate [Pulse Oximeter] 91 81 Respiratory Rate 16 16 Blood Pressure Blood Pressure [Le ft Arm] 112/68 106/65 Pulse Oximetry 96 [facility] 12/13/21 21:00 12/14/21 04:30 12/14/21 07:33 Temperature 97.5 F L 97.8 F 98.4 F Pulse Rate Pulse Rate [Pulse Oximeter] 90 71 76 Respiratory Rate 16 16 16 Blood Pressure Blood Pressure [Le ft Arm] 113/72 111/67 107/68 Pulse Oximetry 97 98 98 [facility] Room Air Room Air Documenting provider has reviewed patient's vital signs: yes Common normals: no apparent distress, average body habitus, oriented x3, no limitations, healthy appearing, alert and well nourished HENMT: Common normals: hearing grossly normal bilaterally Head and scalp: normal to inspection Eye: General eye: normal appearance of both eyes Neck & C-Spine: Common normals: full ROM and no JVD Resp: Common normals: normal respiratory effort, no retractions, no use of accessory muscles and clear to auscultation bilaterally Auscultation: clear to auscultation bilaterally Cardio: Common normals: no JVD, regular rate, regular rhythm, S1 normal heart sound, S2 normal heart sound, no gallops, no clicks, no murmurs and no rub Rate: regular rate Rhythm: regular rhythm Heart sounds: S1 normal and S2 normal GI: Common normals: soft to palpation and non-tender Palpation: soft : Uterus: U/2 Lochia: small Extremity: Common normals: full ROM Neuro: Common normals: oriented x3 Sensorium/orientation: alert Psych: Common normals: mental status grossly normal and thought process normal Thought process: normal thought process OB - DS: Summary Hospital Course Hospital Course: The patient is a 31 year old G 1 P 1 at 40.4 weeks gestation that was admitted to the Center on 12/12/21 for labor. She had an uncomplicated vaginal delivery. She delivered a viable male . She is breast feeding and says that it is going well. the patient has done well. Peripartum Data delivery method: Vaginal Laceration description: Perineal - 2nd Degree Episiotomy description: None complications: none Infant Gender: Male Infant Discharge Plan: Home Status at Discharge Functional status at discharge: independent ambulation Overall status at discharge: patient is progressing back to baseline Time Spent with Patient Time attestation: Total time spent providing and/or coordinating discharge services: Discharge Plan Discharge Disposition: Home, Self-Care Date of Admission: 12/12/21 20:55 Attending Provider on Discharge: Camila Santamaria Primary Care Provider: Provider,Not a Local Condition: Stable Anticipated Discharge Date/Time: 12/14/21 00:00 Discharge Medications: New docusate sodium 100 mg Capsule 100 mg PO DAILY PRNQty: 100 0RF Rx Instructions: Take 1-2 tablets daily as needed for constipation. ibuprofen 600 mg Tablet 600 mg PO Q6H PRNQty: 60 0RF Continued amoxicillin 500 mg tablet PO DAILY prenat.vits,brody,[id number] Tablet 1 tab PO QDAY Discharge Orders: Discharge Order (Routine); Ordered 12/14/21 Ordered By: Camila Santamaria Patient Education: OB Vaginal/Breast Feeding Activity Restrictions/Additional Instructions: Discharge Criteria? Patient has no complaints? Doing well? She is requesting discharge home.? ? ? Discharge Education? ? Discharge instructions were reviewed with the patient including signs and symptoms of infection and home going medications.? Off Work or School for 6 weeks.? ?? Symptoms to report to doctor:? -Bleeding that saturates more than one pad per hour? -Passing clots larger than the size of a golf ball? -Pain not relieved by prescribed medication? -Fever above 100.4 degrees Fahrenheit? -A foul vaginal odor? -Difficulty in emotions, mood and functions? -Thoughts of hurting yourself and/or ? -Painful, reddened area in your breast? -Any drainage, redness or tenderness in your IV/epidural site? -Severe headache that doesn't improve after taking medications? -Changes in vision, including temporary loss of vision, blurred vision, and/or light sensitivity? -Upper abdominal pain (usually under ribs on the right side)? -Decrease in urination or painful, frequent urinating? -Chest pain? -Shortness of breath? -Tenderness or pain with redness and/swelling in the calf(s) of your leg? ?? Follow Up in clinic in 2 and 6 weeks.? ?? consultation services are available to all mothers and babies for the first year after delivery.? To make an appointment, please call [phone].? Activity Level: No Restrictions Discharge Diet: Regular Follow Up Appointments: Provider,Not a Local [Primary Care Provider] - Forms: MyHealth Info Instructions
[2021-12-14 11:23] VITALS: BMI 32.0
[2021-12-19 19:01] LABS: Hepatitis B Surface Antigen* Negative (Negative)
--- OUTSIDE RECORDS SUMMARY | 2021-12-20 00:37 | XMS_ITS | Encounter Summary ---
:[address] [facility] Address [address] [place] [address] Care Team Providers Name Role Phone Nelly Avalos M.D. Primary Care Provider Reason for Visit Reason Onset Date Comments Testing For Upper Respiratory Virus Symptoms 05/16/2021 Encounter Details Date Type Department Care Team Description 05/16/2021 External Outreach Department of [facility] Juana Wilson Contact With And (Suspected) Exposure To COVID-19; Medicine, [facility] T, P.A.-C. Infection Upper Respiratory Clinic, in [address] [address] [place], [place] [phone] (Work) [phone] Social History Tobacco Use Types Packs/Day Years [...] 02/27/2019 relatives? How often do you attend buddhist or temple 1 to 4 times per year 02/27/2019 services? Do you belong to any clubs or organizations such No 02/27/2019 as buddhist groups, unions, fraternal or athletic groups, or [...] the highest level of school Associate degree: [employer] program 02/26/2019 you have completed or the highest degree you have received? Sex Assigned at Date Recorded Female 02/27/2019 11:22 AM CDT documented as of this encounter Progress Notes Herber Singh - 05/16/2021 1:40 PM CST Encounter created for symptomatic infectious disease screening with possible COVID, Influenza, RSV, and/or Group A Strep testing. [employer] documented in this encounter Miscellaneous Notes Result Encounter Note - Torres Luna R.N. - 05/18/2021 8:59 AM [employer] The patient will be contacted if they are eligible and appointments are available for Monoclonal Antibody Infusion and/or Remote Patient Monitoring. The [place] Covid Care Team (CCT) sends general guidance about COVID-19 to all patients by letter or portal, except when a patient is hospitalized or resides in a [place] health care facility. [facility] will call all adult patients at highest risk for severe complications of COVID-19 (MASS 3 or greater) and all who require an clay shop supervisor. Any patient with a MASS score 1 [...] for symptom management. For questions, contact the [place] [facility] Care Team ([facility]): Pager: [phone] In basket: P RST/[facility] COVID-19 POSITIVE Covid [...] to obtain the result by calling the [employer] result line or by checking their online services account. [employer] documented in this encounter Plan of Treatment Not on filedocumented as of this encounter Procedures Procedure Name Priority Date/Time Associated Diagnosis Comme nts INFLUENZA A/B AND Routine 05/16/2021 3:05 PM Infection Upper R esults for this RSV, PCR, VARIES [employer] Respiratory procedure a re in the results section. SARS CORONAVIRUS-2 Routine 05/16/2021 3:05 PM Contact With And Results for this RNA, V [employer] (Suspected) Exposure procedu re are in To COVID-19 the results section. documented in this encounter Results Influenza A/B and RSV, PCR, Varies (05/16/2021 3:05 PM [employer]) [facility] Method Time Signature Influenza A/B Swab, 05/20/2021 DTL and RSV, Nasopharynx 12:46 PM Source [employer] Influenza A, Undetected Undetected 05/20/2021 DTL PCR 12:46 PM [employer] Comment: Influenza A RNA absent. Influenza B, PCR Undetected Undetected 05/20/2021 12:[address] DTL Comment: Influenza B RNA absent. Respiratory Syncytial Virus, Undetected Undetected 2 12:46 PM [employer] DTL PCR Comment: RSV RNA absent. ----ADDITIONAL INFORMATION---- This test has been modified from the man ufacturer's instructions. Its performance characteristics were determi selene by [facility] in a manner consistent with CLIA requirements. This test has not been cleared or approved by the U.S. Food and Drug Administration . Specimen Anatomical Collection Method Collection Time Receive d Time (Source) Location / / Volume Laterality Varies 05/16/2021 3:05 PM 2 (Nasopharynx) [employer] 10:11 PM [employer] Al Wilson P.A.-C. LAB MICROBIOLOGY - GENERAL O RAVINDRA Performing Organization Address City/State/ZIP Code Phon e Number [facility] - [address] [place], [place] [address] [facility] [place] [address] Laboratories-[facility] [address] [facility] (ABNORMAL) SARS Coronavirus-2 RNA, V Symptomatic (05/16/2021 3:05 PM [employer]) [facility] Method Time Signature SARS-CoV-2 Swab, 05/17/2021 ECLR Specimen Nasopharynx 9:49 PM [employer] Source SARS CoV-2 Detected (A) Undetected 05/17/2021 ECLR RNA, TMA 9:49 PM [employer] Comment: SARS-CoV-2 RNA present. ----ADDITIONAL INFORMATION---- This molecular amplification test was pe rformed using the Aptima SARS-CoV-2 assay ([employer] on the [employer] tem under emergency use authorization (EUA) by the U.S. Food and Drug Administ timo. Fact sheets for this EUA assay can be fo und at the following links: For Healthcare Providers: https://www.fd a.gov/media/818443/download For Patients: https://www.fda.gov/media/ 861060/download Specimen Anatomical Collection Method Collection Time Receive d Time (Source) Location / / Volume Laterality Varies 05/16/2021 3:05 PM (Nasopharynx) [employer] 10:06 PM [employer] Al Wilson P.A.-C. LAB MICROBIOLOGY - GENERAL O RAVINDRA Performing Organization Address City/[facility]/ZIP Code Phon e Number [facility]- [address] [place] [phone] [facility] [place] [address] [address] documented in this encounter Visit Diagnoses Diagnosis Contact With And (Suspected) Exposure To COVID-19 Infection Upper Respiratory documented in this encounter Additional Health Concerns Infection Onset Date Last Indicated Resolved Time COVID19 Pending 05/16/2021 05/16/2021 05/17/2021 9:50 PM [employer] Assessment Noted Time PHQ-9 Depression Total Score: 10 02/27/2019 11:27 AM C DT documented as of this encounter Care Teams Court Assistant Relationship Specialty Start Date End Date Nelly Avalos M.D. PCP - General Family Medicine 11/15/[address] [place] [phone] documented as of this encounter
--- OUTSIDE RECORDS SUMMARY | 2021-12-20 00:37 | XMS_ITS | Clinical Summary ---
:1990 Author Organization [facility] Address [address] [place] [address] Care Team Providers Name Role Phone Nelly Avalos M.D. Primary Care Provider Source Comments Patient records contain information from all sites at [facility]. For routine questions regarding patient records, call [phone] during business hours, M-F 8:00 AM - 5:00 PM Central Time. Record requests for emergency care only can be directed to [phone] at any time.[facility] Allergies No known active allergies Medications No [...] 05/01/2015 Influenza, Unspecified 02/25/2019 SARS-COV-2 (COVID-19) - [employer] (J&J) 12/13/2020 Tdap 04/17/2017 influenza vaccine quad [...] How often do you attend hinduism or restorationist 1 to 4 times per year 02/27/2019 [...] highest level of school Associate degree: [employer] program 02/26/2019 you have completed or the [...] 174 cm (5' 8.5) 06/22/2020 11:11 AM PLAYGROUND ATTENDANT Body Mass Index 27.45 06/22/2020 11:11 AM PLAYGROUND ATTENDANT Plan of Treatment Health Maintenance Due Date [...] Dates Phone Address Type / Group [employer] [facility] [id number] 2020-Prese [phone] [address] [id number] PPO EMPLOYEE PLAN nt 2 [place] [id number] Care Teams Tunnel Elastic Operator Lockstitch Relationship Specialty Start Date End Date Nelly Avalos M.D. PCP - General Family Medicine 11/15/[address] [place] [phone]
--- OUTSIDE RECORDS SUMMARY | 2021-12-20 00:37 | XMS_ITS | Encounter Summary ---
:1990 Author Organization [facility] Address [address] [place] [address] Care Team Providers Name Role Phone Nelly Avalos M.D. Primary Care Provider Encounter Details Date Type Department Care Team Description 05/16/2021 Admin Visit Department of Family Julius Veras, [facility] [address] [facility] [address] [place] [phone] (Wo rk) Social History Tobacco Use Types [...] How often do you attend taoist or latter-day 1 to 4 times per year 02/27/2019 [...] highest level of school Associate degree: academ [employer] program 02/26/2019 you have completed or the highest degree you have received? 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 PCP - General Family Medicine 11/15/[address] [place] [phone] documented as of this encounter
--- OUTSIDE RECORDS SUMMARY | 2021-12-20 00:37 | XMS_ITS | Encounter Summary ---
:1990 Author Organization [facility] Address [address] [place] [address] Care Team Providers Name Role Phone Nelly Avalos M.D. Primary Care Provider Reason for Visit Reason Comments Vomiting Encounter Details Date Type Department Care Team Description 07/01/2021 Nurse Triage Department of Adina Laguna, [facility] Medicine, [facility], [facility] in [place], [place] [address] [facility] [address] [place] [address] [place] [address] [phone] Social History Tobacco Use Types Packs/Day Years [...] How often do you attend evangelical or zoroastrian 1 to 4 times per [...] the highest level of school Associate degree: [employer] program 02/26/2019 you have completed or the highest degree you have received? 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 * Other options: 1/2 strength flat lemon-nottawaseppi potawatomi soda or florentino lexa. * After 4 [...] RSV and Strep Select appropriate region: : [place] Do you have any of the following [...] frequently with soap and water, use hand data architect if soap and water aren't available. -Wear [...] ??? MILD vomiting with diarrhea Protocols used: [id number] HEARTH FURNACE LABORER documented in this encounter Plan of Treatment Not on filedocumented as of this encounter Visit Diagnoses Not on filedocumented in this encounter Additional Health Concerns Assessment Noted Time PHQ-9 Depression Total Score: 10 02/27/2019 11:27 AM C DT documented as of this encounter Care Teams Teacher Vocational Training Relationship Specialty Start Date End Date Nelly Avalos M.D. PCP - General Family Medicine 11/15/[address] [place] [phone] documented as of this encounter
--- OUTSIDE RECORDS SUMMARY | 2021-12-20 00:37 | XMS_ITS | Encounter Summary ---
:1990 Author Organization [facility] Address [address] [place] [address] Care Team Providers Name Role Phone Nelly Avalos M.D. Primary Care Provider Encounter Details Date Type Department Care Team Description 05/15/2021 Patient Self-Triage [facility]ED [facility] Symptom Claim Trainee, Provider Social History Tobacco Use Types Packs/Day [...] 02/27/2019 relatives? How often do you attend mormonism or pentecostal 1 to 4 times per year 02/27/2019 services? Do you belong to any clubs or organizations such No 02/27/2019 as mormonism groups, unions, fraternal or athletic groups, or [...] highest level of school Associate degree: academ [employer] program 02/26/2019 you have completed or the [...] documented as of this encounter Care Teams Diplomatic Interpreter/Translator Relationship Specialty Start Date End Date Nelly Avalos M.D. PCP - General Family Medicine 11/15/[address] [place] [phone] documented as of this encounter
--- OUTSIDE RECORDS SUMMARY | 2021-12-20 00:38 | XMS_ITS | Encounter Summary ---
:1990 Author Organization [facility] Address [address] [place] [address] Care Team Providers Name Role Phone Nelly Avalos M.D. Primary Care Provider Encounter Details Date Type Department Care Team Description 03/22/2021 Orders Only RST PCP [facility] NIKOLAYT Nelly Avalos M.D. [address] [place] [phone] (Wo rk) Social History Tobacco Use [...] 02/27/2019 relatives? How often do you attend holiness or jewish 1 to 4 times per year 02/27/2019 services? Do you belong to any clubs or organizations such No 02/27/2019 as holiness groups, unions, fraternal or athletic groups, or [...] the highest level of school Associate degree: [employer] program 02/26/2019 you have completed or the [...] as of this encounter Care Teams Manager Rail Relationship Specialty Start Date End Date Nelly Avalos M.D. PCP - General Family Medicine 11/15/[address] [place] [phone] documented as of this encounter
--- OUTSIDE RECORDS SUMMARY | 2021-12-20 00:38 | XMS_ITS | Encounter Summary ---
:1990 Author Organization [facility] Address [address] [place] [address] Care Team Providers Name Role Phone Nelly Avalos M.D. Primary Care Provider Encounter Details Date Type Department Care Team Description 03/24/2021 Orders Only RST PCP HL[facility] NIKOLAYT Deandra Sierra M.D. [address] [place], [place] [phone] (Wo rk) Social History [...] 02/27/2019 relatives? How often do you attend amish or pentecostal 1 to 4 times per year 02/27/2019 services? Do you belong to any clubs or organizations such No 02/27/2019 as amish groups, unions, fraternal or athletic groups, or [...] the highest level of school Associate degree: [employer] program 02/26/2019 you have completed or the [...] documented as of this encounter Care Teams Latin Teacher Relationship Specialty Start Date End Date Nelly Avalos M.D. PCP - General Family Medicine 11/15/[address] [place] [phone] documented as of this encounter
--- OUTSIDE RECORDS SUMMARY | 2021-12-20 00:38 | XMS_ITS | Encounter Summary ---
:1990 Author Organization [facility] Address [address] [place] [address] Care Team Providers Name Role Phone Yandel Montgomery M.D. Primary Care Provider Unavailable Reason for Visit Reason Comments Ear Infection/ Ear Pain Encounter Details Date Type Department Care Team Description 12/27/2017 Office Visit [facility] Wilian Navarro, DOMINICK, C.N.P. [address] [place] [phone] Cerumen Impacted Care at [facility] Saadia Tellez, DOMINICK, C.N.P. [address] [place] [phone] Bilateral (Primary [address] ANALILIA Scott) [place] [address] Social History Tobacco Use Types [...] 02/27/2019 relatives? How often do you attend advent or pentecostalism 1 to 4 times per year 02/27/2019 services? Do you belong to any clubs or organizations such No 02/27/2019 as advent groups, unions, fraternal or athletic groups, or [...] and Follow up prn. Patient has a [facility] online portal account, can view medication list [...] documented as of this encounter Care Teams Or Director Relationship Specialty Start Date End Date Yandel Montgomery M.D. PCP - General Internal Medicine 11/11/16 12/04/18 documented as of this encounter
--- OUTSIDE RECORDS SUMMARY | 2021-12-20 00:38 | XMS_ITS | Encounter Summary ---
:1990 Author Organization [facility] Address [address] [place] [address] Care Team Providers Name Role Phone Anastasia Coyne D.O. Primary Care Provider [phone] Reason for Visit Reason Comments Annual Exam Appointment Request (Routine) - Closed Specialty Diagnoses / Procedures Referred By Contact Refer red To Contact Family Medicine Referral ID Status Reason Start Date Expiration Date Visits Requ ested Visits Authorized [id number] Closed 01/23/2019 01/23/2020 1 1 Encounter Details Date Type Department Care Team Description 02/27/2019 Comprehensive Visit Department of Doretha Health Maintenance Examination Adult (Primary Dx); Family Anastasia Baez D.O. Infertility Female; [facility] [address] [facility] Polycystic Ovary Syndrome; vent[place] [phone] 411 [facility] [phone] [place], [place] (Work) [phone] Social History Tobacco Use Types Packs/Day Years [...] 02/27/2019 relatives? How often do you attend pentecostalism or gnosticism 1 to 4 times per year 02/27/2019 services? Do you belong to any clubs or organizations such No 02/27/2019 as pentecostalism groups, unions, fraternal or athletic groups, or [...] the highest level of school Associate degree: [employer] program 02/26/2019 you have completed or the [...] cannot be sent through Care Everywhere. Letrozole (New Zealander)documented in this encounter H&P Notes Anastasia Coyne [...] cycles, Starting Sat02/27/2019, Normal - Thyroid Function [place]; Future; Expected date: 02/27/2019 - Follicle-Stimulating Hormone [...] Organization Address City/State/ZIP Code Phon e Number [facility] - [address] [place] [address] [address] LH (Luteinizing Hormone) (02/27/2019 2:22 PM [...] D.O. LAB BLOOD ADD-ON Performing Organization Address City/[facility] Phon e Number [facility] - [address] [address] [address] Follicle-Stimulating Hormone (FSH), Serum (02/27/2019 2:22 PM CDT) athologist Signature Follicle-Stim 4.8 IU/L 02/27/2019 [facility] Hormone (FSH), 7:57 PM CDT S Comment: ----REFERENCE VALUE---- Premenopausal: 2.9-14.6 IU/L (Follicular) 4.7-23.2 IU/L (Midcycle) 1.4-8.9 IU/L (Luteal) Postmenopausal: 16.0-157.0 IU/L Specimen Anatomical Collection Method Collection Time Receive d Time (Source) Location / / Volume Laterality Blood (Blood, 02/27/2019 2:22 PM 02/28/20 19 6:06 Venous) CDT PM CDT Anastasia Coyne D.O. LAB BLOOD ADD-ON Performing Organization Address City/[facility] Phon e Number [facility] - [address] [place] [address] [place] [address] Laboratories-[facility] 200 [facility] Thyroid Function [place] (02/27/2019 2:22 PM CDT) P athologist Signature TSH, Sensitive 1.9 0.3 - 4.2 02/27/2019 DT mIU/L 7:57 PM CDT Specimen Anatomical Collection Method Collection Time Receive d Time (Source) Location / / Volume Laterality Blood (Blood, 02/27/2019 2:22 PM 02/28/20 6:06 Venous) CDT PM CDT Anastasia Coyne D.O. LAB BLOOD ADD-ON Performing Organization Address City/State/ZIP Code Phon e Number [facility] - [address] [place] [address] 05 [place] [address] documented in this encounter Visit Diagnoses Diagnosis Health Maintenance Examination Adult - P rimary Infertility Female Polycystic Ovary Syndrome Acne documented in this encounter Additional Health Concerns Assessment Noted Time PHQ-9 Depression Total Score: 10 02/27/2019 11:27 AM C DT documented as of this encounter Care Teams Nuclear Physician Relationship Specialty Start Date End Date Anastasia Coyne D.O. PCP - General Family Medicine 12/05/18 11/10/[address] [place] [phone] documented as of this encounter
--- OUTSIDE RECORDS SUMMARY | 2021-12-20 00:38 | XMS_ITS | Encounter Summary ---
:1990 Author Organization [facility] Address [address] [place] [address] Care Team Providers Name Role Phone Mahi Coombs M.D. Primary Care Provider Reason for Visit Reason Comments MRO Review [facility] Encounter Details Date Type Department Care Team Description 09/07/2020 Office Visit Department of Occupational Roz Del Cid M.D. Drug Screen Medicine in [address] [phone] [place] [address] [phone] Social History Tobacco Use Types Packs/Day Years [...] 02/27/2019 relatives? How often do you attend latter day or catholic 1 to 4 times per year 02/27/2019 services? Do you belong to any clubs or organizations such No 02/27/2019 as latter day groups, unions, fraternal or athletic groups, or [...] highest level of school Associate degree: academ [employer] program 02/26/2019 you have completed or the [...] documented as of this encounter Care Teams Neurology Manager Relationship Specialty Start Date End Date Mahi Coombs M.D. PCP - General 11/11/19 11/14/[address] [place] [address] documented as of this encounter
--- OUTSIDE RECORDS SUMMARY | 2021-12-20 00:38 | XMS_ITS | Encounter Summary ---
:1990 Author Organization [facility] Address [address] [place] [address] Care Team Providers Name Role Phone Mahi Coombs M.D. Primary Care Provider Encounter Details Date Type Department Care Team Description 04/07/2020 Admin Visit Department of Family Medicine, [facility] [place] in [place], [place] [address] [place] [phone] Social History Tobacco Use Types Packs/Day [...] 02/27/2019 relatives? How often do you attend oriental orthodox or methodist 1 to 4 times per year 02/27/2019 services? Do you belong to any clubs or organizations such No 02/27/2019 as oriental orthodox groups, unions, fraternal or athletic groups, [...] highest level of school Associate degree: academ [email or web address] program 02/26/2019 you have completed or the highest degree you have received? 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 PCP - General 11/11/19 11/14/20 [address] [place] [address] documented as of this encounter
--- OUTSIDE RECORDS SUMMARY | 2021-12-20 00:38 | XMS_ITS | Encounter Summary ---
:1990 Author Organization [facility] Address [address] [place] [address] Care Team Providers Name Role Phone Mahi [...] Expiration Date Visits Requ ested Visits Authorized [id number] Closed 05/25/2020 05/25/2021 1 1 Encounter Details Date Type Department Care Team Description 06/22/2020 Comprehensive Visit Department of Nelly Avalos Medical Examination Adult (Primary Dx); Family MedicineTrae M.D. Pap Smear Examination; [place] [address] Therapy Oral Contraceptive; Clinic, in [facility] Cerumen Impacted Bilateral; [facility], [facility] Vaccine Immunization [address] [place] [phone] [facility] [phone] [place], [place] (Work) [phone] Social History Tobacco Use [...] 02/27/2019 relatives? How often do you attend jehovah's witness or baptism 1 to 4 times per year 02/27/2019 services? Do you belong to any clubs or organizations such No 02/27/2019 as jehovah's witness groups, unions, fraternal or athletic groups, or [...] the highest level of school Associate degree: Whatever program 02/26/2019 you have completed or the highest degree you have received? Sex Assigned at Date Recorded Female 02/27/2019 11:22 AM CDT documented as of this encounter Last Filed Vital Signs Vital Sign Reading Time Taken Comments Blood Pressure 107/65 06/22/2020 11:11 AM BUSHING PRESS OPERATOR Pulse 80 06/22/2020 11:11 AM BUSHING PRESS OPERATOR Temperature 36 ??C (96.8 ??F) 06/22/2020 11:11 AM BUSHING PRESS OPERATOR Respiratory Rate 16 06/22/2020 11:11 AM BUSHING PRESS OPERATOR Oxygen Saturation 100% 06/22/2020 11:11 AM BUSHING PRESS OPERATOR Inhaled Oxygen Concentration - - Weight 78.9 kg (173 lb 15.1 oz) 06/22/2020 11:11 AM BUSHING PRESS OPERATOR Height 174 cm (5' 8.5) 06/22/2020 11:11 AM BUSHING PRESS OPERATOR Body Mass Index 26.06 06/22/2020 11:11 AM BUSHING PRESS OPERATOR documented in this encounter H&P Notes Nelly [...] - Primary Care nurse visit (clinic) - [facility] Region; Ear wash; Bilateral; Future 5. Need Vaccine Immunization Updated today. - influenza vaccine quad (FLUZONE/FLUARIX) (6 months and older) (PF) Nelly Avalos M.D. 06/22/20 ING PRESS OPERATOR documented in this encounter Plan of Treatment Not on filedocumented as of this encounter Procedures Procedure Name Priority Date/Time Associated Diagnosis Comme nts THINPREP W/HPV Routine 06/22/2020 12:39 PM Pap Smear Result s for this CO-TEST SCREEN BUSHING PRESS OPERATOR Examination procedure are in the results section. HPV WITH Routine 06/22/2020 12:39 PM Results for this GENOTYPING, PCR, BUSHING PRESS OPERATOR procedure a re in THINPREP the results section. documented in this encounter Results HPV with Genotyping, PCR, ThinPrep (06/22/2020 12:39 PM BUSHING PRESS OPERATOR) [facility] Method Time Signature Specimen Thin Prep 06/24/2020 DTL Source Vial, 6:20 PM BUSHING PRESS OPERATOR Cervix/Endoc ervix HPV High Risk Negative Negative 06/24/2020 DTL type 16, PCR 6:20 PM BUSHING PRESS OPERATOR HPV High Risk Negative Negative 06/24/2020 DTL type 18, PCR 6:20 PM BUSHING PRESS OPERATOR HPV other Negative Negative 06/24/2020 DTL High Risk 6:20 PM BUSHING PRESS OPERATOR types, PCR Comment: The following Other High Risk HPV types were not detected: 31, 33, 35, 39, 45, 51, 52, 56, 58, 59, 66, and 68 This test was ordered in the context of a [facility] PLASTIC SURGERY MANAGER Cytology case; this result should be int erpreted within the context of the PLASTIC SURGERY MANAGER cytology report. Specimen Anatomical Collection Method Collection Time Receive d Time (Source) Location / / Volume Laterality Varies 06/22/2020 12:39 06/23/2020 8:12 PM BUSHING PRESS OPERATOR AM BUSHING PRESS OPERATOR Nelly Avalos M.D. LAB MICROBIOLOGY - GENERAL O RDERABLES Performing Organization Address City/State/ZIP Code Phon e Number [facility] - [address] [place], [place] [address] [facility] [place] [address] Laboratories-[facility] [address] ThinPrep w/HPV Co-Test Screen (06/22/2020 12:39 PM BUSHING PRESS OPERATOR) Component Value Ref Test Analysis Performed Pathologis t Range Method Time At Signature 06/27/2020 ECLR 4:05 PM BUSHING PRESS OPERATOR Disclaimer High risk HPV testing, Real-Time Polymerase Chain Reac tion 06/27/2020 ECLR (PCR) was performed on the liquid-based cytology specimen 4:05 PM at [place], [place]. Report TEDDY Hargrove(ASCP) 06/27/2020 ECL R electronically I verify that I have examined all relevant slides/ma terials 4:05 PM signed by for the specimen(s) and rendered or confirmed the diagnosis. BUSHING PRESS OPERATOR Gross Description Received specimen 06/27/2020 ECL R in a ThinPrep 4:05 PM vial. BUSHING PRESS OPERATOR Pap Test Source Cervical/Endocervi 06/27/2020 ECLR brody 4:05 PM BUSHING PRESS OPERATOR Hormone Oral 06/27/2020 ECLR Therapy/Contracep Contraceptives 4:05 PM tives BUSHING PRESS OPERATOR Interpretation Cervical/Endocervical ??(ThinPrep): 06/27/2020 ECLR Satisfactory for Evaluation 4:05 PM Negative for Intraepithelial Lesion or Malignancy BUSHING PRESS OPERATOR ??High Risk HPV testing results are NEGATIVE. [...] Varies 06/22/2020 12:39 06/23/2020 8:12 (Cervix/Endocerv PM BUSHING PRESS OPERATOR AM BUSHING PRESS OPERATOR ix) Narrative This result has an attachment that is no t available. Nelly Avalos M.D. LAB PAP PATHDX ORDERABLES Performing Organization Address City/State/ZIP Code Phon e Number [facility]- [address] [place] [phone] [facility] [place] [address] System [address] documented in this encounter Visit Diagnoses Diagnosis General Medical Examination Adult - Prim adela Pap Smear Examination Therapy Oral Contraceptive Cerumen Impacted Bilateral Need Vaccine Immunization documented in this encounter Additional Health Concerns Assessment Noted Time PHQ-9 Depression Total Score: 10 02/27/2019 11:27 AM C DT documented as of this encounter Care Teams Donor Floor Technician Relationship Specialty Start Date End Date Mahi Coombs M.D. PCP - General 11/11/19 11/14/20 [address] [place] [address] documented as of this encounter
--- OUTSIDE RECORDS SUMMARY | 2021-12-20 00:38 | XMS_ITS | Encounter Summary ---
:1990 Author Organization [facility] Address [address] [place] [address] Care Team Providers Name Role Phone Mahi Coombs M.D. Primary Care Provider Encounter Details Date Type Department Care Team Description 05/12/2020 E-Visit [facility] Hawa Merritt, RE: [facility]adder [facility] (females o nly, ages 13 Building on the 4th M.S.N. through 75 years) Floor [address] [place] [address] [address] [place] [phone] Social History Tobacco Use Types Packs/Day Years [...] 02/27/2019 relatives? How often do you attend gnosticist or pentecostal 1 to 4 times per year 02/27/2019 services? Do you belong to any clubs or organizations such No 02/27/2019 as gnosticist groups, unions, fraternal or athletic groups, or [...] documented as of this encounter Care Teams Credit Representative Relationship Specialty Start Date End Date Mahi Coombs M.D. PCP - General 11/11/19 11/14/20 [address] [place] [address] documented as of this encounter
--- OUTSIDE RECORDS SUMMARY | 2021-12-20 00:38 | XMS_ITS | Encounter Summary ---
:[address] [facility] Address [address] [place] [address] Care Team Providers Name Role Phone Mahi Coombs M.D. Primary Care Provider Reason for Referral Outpatient (Routine) - Closed Specialty Diagnoses / Procedures Referred By Contact Refer red To Contact Diagnoses Drug Screen Roz Tobin M.D. [facility] Procedures OCC Drug screening [address] [place] [phone] Referral ID Status Reason Start Date Expiration Date Visits Requ ested Visits Authorized [id number] Closed 09/06/2020 09/06/2021 1 1 Reason for Visit Reason Comments Drug Screen [facility] Encounter Details Date Type Department Care Team Description 09/06/2020 Clinical Support Department of Roz Tobin Drug Scre en (Primary Occupational Medicine Hiram Jimenez Dx) in [facility] 701 [facility] [address] [place] [phone] Social History Tobacco Use Types Packs/Day [...] 02/27/2019 relatives? How often do you attend catholic or restorationist 1 to 4 times per year 02/27/2019 services? Do you belong to any clubs or organizations such No 02/27/2019 as catholic groups, unions, fraternal or athletic groups, or [...] highest level of school Associate degree: academ [employer] program 02/26/2019 you have completed or the highest degree you have received? Sex Assigned at Date Recorded Female 02/27/2019 11:22 AM CDT documented as of this encounter Progress Notes Mary Pedro, L.P.N. - 09/06/2020 2:00 PM CDT Pre employment uds for [facility]. Uneventful collection. documented in this encounter Plan of Treatment Scheduled Orders Name Type Priority Associated Diagnoses Order S chedule [facility] Drug screening Procedures Routine Drug Screen Ordered: 09/06/2020 documented as of this encounter Visit Diagnoses Diagnosis Drug Screen - Primary documented in this encounter Additional Health Concerns Assessment Noted Time PHQ-9 Depression Total Score: 10 02/27/2019 11:27 AM C DT documented as of this encounter Care Teams Industrial Education Instructor Relationship Specialty Start Date End Date Mahi Coombs M.D. PCP - General 11/11/19 11/14/20 [address] [place] [address] documented as of this encounter
--- OUTSIDE RECORDS SUMMARY | 2021-12-20 00:38 | XMS_ITS | Encounter Summary ---
:[address] [facility] Address [address] [place] [address] Care Team Providers Name Role Phone Nelly Avalos M.D. Primary Care Provider Encounter Details Date Type Department Care Team Description 03/10/2021 Admin Visit Department of [facility] [address] [facility] [address] [place] [phone] (Wo rk) Social History Tobacco Use Types [...] 02/27/2019 relatives? How often do you attend caodaism or shinto 1 to 4 times per year 02/27/2019 services? Do you belong to any clubs or organizations such No 02/27/2019 as caodaism groups, unions, fraternal or athletic groups, or [...] highest level of school Associate degree: academ [employer] program 02/26/2019 you have completed or the [...] documented as of this encounter Care Teams Director Software Development Relationship Specialty Start Date End Date Nelly Avalos M.D. PCP - General Family Medicine 11/15/[address] [place] [phone] documented as of this encounter
--- OUTSIDE RECORDS SUMMARY | 2021-12-20 00:38 | XMS_ITS | Encounter Summary ---
:1990 Author Organization [facility] Address [address] [place] [address] Care Team Providers Name Role Phone Nelly Avalos M.D. Primary Care Provider Reason for Visit Reason Comments other Discussing standing desk and has noticed that she has issues with focusing more recently. Encounter Details Date Type Department Care Team Description 02/01/2021 Office Visit Department of Family Nelly Avalos Pa in Low Back Unspecified (Primary Dx); MedicineSteven M.D. Deficit Attention Or Concentration; [facility], [place] [address] Contrace ption Personal History [address] [address] [place], [place] [phone] (Work) [phone] Social History Tobacco Use Types Packs/Day Years [...] 02/27/2019 relatives? How often do you attend buddhism or restorationist 1 to 4 times per year 02/27/2019 services? Do you belong to any clubs or organizations such No 02/27/2019 as buddhism groups, unions, fraternal or athletic groups, or [...] the highest level of school Associate degree: [employer] 02/26/2019 you have completed or the highest [...] Body Mass Index 27.45 06/22/2020 11:11 AM ELECTRIC METER REPAIRER HELPER documented in this encounter Progress Notes Nelly Avalos M.D. - 02/01/2021 1:45 PM CDT SUBJECTIVE [...] documented as of this encounter Care Teams Loom Blower Relationship Specialty Start Date End Date Nelly Avalos M.D. PCP - General Family Medicine 11/15/[address] [place] [phone] documented as of this encounter
--- OUTSIDE RECORDS SUMMARY | 2021-12-20 00:38 | XMS_ITS | Encounter Summary ---
:1990 Author Organization [facility] Address [address] [place] [address] Care Team Providers Name Role Phone Nelly Avalos M.D. Primary Care Provider Encounter Details Date Type Department Care Team Description 12/13/2020 Clinical Support Department of Trevon Patel, Medicine, [facility], in [address] [address] [place] [phone] Social History Tobacco Use Types [...] 02/27/2019 relatives? How often do you attend judaism or shinto 1 to 4 times per year 02/27/2019 services? Do you belong to any clubs or organizations such No 02/27/2019 as judaism groups, unions, fraternal or athletic groups, or [...] highest level of school Associate degree: academ [employer] program 02/26/2019 you have completed or the [...] documented as of this encounter Care Teams Supervisor Beater Room Relationship Specialty Start Date End Date Nelly Avalos M.D. PCP - General Family Medicine 11/15/[address] [place] [phone] documented as of this encounter
--- OUTSIDE RECORDS SUMMARY | 2021-12-20 00:38 | XMS_ITS | Encounter Summary ---
:1990 Author Organization [facility] Address [address] [place] [address] Care Team Providers Name Role Phone Nelly Avalos M.D. Primary Care Provider Reason for Referral Specialty Diagnoses / Procedures Referred By Contact Refer red To Contact Nelly Avalos M. D. [address] [phone] Referral ID Status Reason Start Date Expiration Date Visits Requ ested Visits Authorized AURANT EXPEDITOR Encounter Details Date Type Department Care Team Description 03/22/2021 Orders Only RST PCP [facility] N[facility]OLAYT Nelly Avalos M.D. [address] [place] [phone] (Wo rk) Social History Tobacco Use [...] How often do you attend taoist or adventism 1 to 4 times per [...] highest level of school Associate degree: academ [employer] program 02/26/2019 you have completed or the [...] documented as of this encounter Care Teams Handhole Machine Operator Relationship Specialty Start Date End Date Nelly Avalos M.D. PCP - General Family Medicine 11/15/[address] [place] [phone] documented as of this encounter
--- OUTSIDE RECORDS SUMMARY | 2021-12-20 00:38 | XMS_ITS | Encounter Summary ---
:1990 Author Organization [facility] Address [address] [place] [address] Care Team Providers Name Role Phone Nelly Avalos M.D. Primary Care Provider Reason for Visit Reason Comments Urinary Tract Infection Encounter Details Date Type Department Care Team Description 11/16/2020 Nurse Triage Department of [facility] Maria L Burch Ur inary Tract Medicine, [facility], in [address] [address] [place], [place] [phone] (Work) [phone] Social History Tobacco Use Types Packs/Day Years [...] 02/27/2019 relatives? How often do you attend zoroastrian or jew 1 to 4 times per year 02/27/2019 services? Do you belong to any clubs or organizations such No 02/27/2019 as zoroastrian groups, unions, fraternal or athletic groups, or [...] the highest level of school Associate degree: Video [employer] program 02/26/2019 you have completed or the [...] All other urine symptoms Protocols used: URINARY [id number] Care Advice Patient/Caregiver understands and will follow [...] as of this encounter Care Teams Director Operating Room Relationship Specialty Start Date End Date Nelly Avalos M.D. PCP - General Family Medicine 11/15/[address] [place] [phone] documented as of this encounter
--- OUTSIDE RECORDS SUMMARY | 2021-12-20 00:38 | XMS_ITS | Encounter Summary ---
:1990 Author Organization [facility] Address [address] [place] [address] Care Team Providers Name Role Phone Nelly Avalos M.D. Primary Care Provider Reason for Visit Reason Comments Urinary Problem Triage COVID Inquiry Encounter Details Date Type Department Care Team Description 11/15/2020 Nurse Triage Department of [facility] Julianne Lawton Problem; Medicine, [place] M, R.NGarry Triage; COVID Inquiry Clinic, in [place] [phone] [place], [place] ([address] [address] Social History Tobacco Use Types [...] How often do you attend holiness or christian 1 to 4 times per [...] the highest level of school Associate degree: Add2paper program 02/26/2019 you have completed or the [...] to pharmacy on file. Patient encouraged to order picker prescription at earliest convenience. CARE POINTS [...] documented as of this encounter Care Teams Podiatric Medicine Professor Relationship Specialty Start Date End Date Nelly Avalos M.D. PCP - General Family Medicine 11/15/[address] [place] [phone] documented as of this encounter
--- OUTSIDE RECORDS SUMMARY | 2021-12-20 00:38 | XMS_ITS | Encounter Summary ---
:1990 Author Organization [facility] Address [address] [place] [address] Care Team Providers Name Role Phone Nelly Avalos M.D. Primary Care Provider Encounter Details Date Type Department Care Team Description 04/05/2021 Hospital Encounter Department of Nelly Avalos, Pre gnancy Test Laboratory Medicine in M.D. [address] [phone] Social History Tobacco Use Types Packs/Day Years [...] 02/27/2019 relatives? How often do you attend scientologist or anglican 1 to 4 times per year 02/27/2019 services? Do you belong to any clubs or organizations such No 02/27/2019 as scientologist groups, unions, fraternal or athletic groups, or [...] highest level of school Associate degree: academ [employer] program 02/26/2019 you have completed or the highest degree you have received? Sex Assigned at Date Recorded Female 02/27/2019 11:22 AM CDT documented as of this encounter Plan of Treatment Not on filedocumented as of this encounter Procedures Procedure Name Priority Date/Time Associated Comments Diagnosis HUMAN CHORIONIC Routine 04/05/2021 12:20 Test Result s for this GONADOTROPIN (HCG), PM PIPE LINE WALKER procedur e are in JAIME, the results section. documented in this encounter Results (ABNORMAL) hCG (Human Chorionic Gonadotropin), Quantitative, (04/05/2021 12:20 PM PIPE LINE WALKER) P athologist Signature HCG, 496 (H) <5 IU/L 04/05/2021 CNFL Quantitative, 12:41 PM PIPE LINE WALKER , P Comment: Biotin has been identified by the darion fernandez as a potential interfering substance. ??Higher concentr ations of biotin may be found in multivitamins, hair/nail supple ments, and workout supplements. ??If the result does not [facility] clinical observations, repeat testing after patient refrains fr om the use of supplements for at least 12 hours. Specimen Anatomical Collection Method Collection Time Receive d Time (Source) Location / / Volume Laterality Blood (Blood, 04/05/2021 12:20 04/05/2021 Venous) PM PIPE LINE WALKER 12:22 PM PIPE LINE WALKER Nelly Avalos M.D. LAB BLOOD ADD-ON Performing Organization Address City/State/ZIP Code Phon e Number [facility]- [address] [place] [address] [place] [address] System [address] documented in this encounter Visit Diagnoses Diagnosis Test documented in this encounter Additional Health Concerns Assessment Noted Time PHQ-9 Depression Total Score: 10 02/27/2019 11:27 AM C DT documented as of this encounter Care Teams Instruction Dean Relationship Specialty Start Date End Date Nelly Avalos M.D. PCP - General Family Medicine 11/15/[address] [place] [phone] documented as of this encounter
--- OUTSIDE RECORDS SUMMARY | 2021-12-20 00:38 | XMS_ITS | Encounter Summary ---
:1990 Author Organization [facility] Address [address] [place] [address] Care Team Providers Name Role Phone Nelly Avalos M.D. Primary Care Provider Reason for Visit Reason Onset Date Comments Testing For Upper Respiratory Virus Symptoms 03/10/2021 Encounter Details Date Type Department Care Team Description 03/10/2021 External Outreach Department of Family Juana Wilson Contact With And Medicine, [facility] (Suspected) Exposure Clinic, in [place], [address] [place] [address] To COVID-19 (Primary [place], [place] Dx) [address] [facility] [address] [place], [place] [phone] (Work) [phone] Social History Tobacco Use Types Packs/Day Years [...] How often do you attend gnosticist or church 1 to 4 times per year 02/27/2019 [...] the highest level of school Associate degree: [employer] program 02/26/2019 you have completed or the [...] RNA, V Symptomatic (03/10/2021 10:58 AM CDT) [facility] Method Time Signature SARS-CoV-2 Swab, [...] pe rformed using the Aptima SARS-CoV-2 assay ([employer] on the Ravgens tem under emergency use authorization (EUA) by the U.S. Food and Drug Administ ration. Fact sheets for this EUA assay can be fo und at the following links: For Healthcare Providers: https://www.fd a.gov/media/533389/download For Patients: https://www.fda.gov/media/ 305813/download Specimen Anatomical Collection Method Collection Time Receive d Time (Source) Location / / Volume Laterality Varies 03/10/2021 10:58 03/10/2021 2:51 (Nasopharynx) AM CDT PM CDT Al Wilson P.A.-C. LAB MICROBIOLOGY - GENERAL O RDERABLES Performing Organization Address City/State/ZIP Code Phon e Number [facility]- [address] [place] [address] [phone] [facility] [place] [address] System [address] documented in this encounter Visit Diagnoses Diagnosis Contact With And (Suspected) Exposure To COVID-19 - Primary documented in this encounter Additional Health Concerns Infection Onset Date Last Indicated Resolved Time COVID19 Pending 03/10/2021 03/10/2021 03/10/2021 7:37 PM CDT Assessment Noted Time PHQ-9 Depression Total Score: 10 02/27/2019 11:27 AM C DT documented as of this encounter Care Teams Steel Pourer Relationship Specialty Start Date End Date Nelly Avalos M.D. PCP - General Family Medicine 11/15/[address] [place] [phone] documented as of this encounter
--- OUTSIDE RECORDS SUMMARY | 2021-12-20 00:38 | XMS_ITS | Encounter Summary ---
:1990 Author Organization [facility] Address [address] [place] [address] Care Team Providers Name Role Phone Anastasia Coyne D.O. Primary Care Provider [phone] Encounter Details Date Type Department Care Team Description 02/27/2019 Hospital Encounter Department of Mickey Coyne Female; Laboratory Medicine Cuong Figueroa Polycystic Ovary Syndrome in [place], [facility] [address] [place], [place] [address] [facility] [address] [place], [place] [phone] (Work) [phone] Social History Tobacco Use Types Packs/Day Years [...] 02/27/2019 relatives? How often do you attend anabaptist or sikhism 1 to 4 times per year 02/27/2019 services? Do you belong to any clubs or organizations such No 02/27/2019 as anabaptist groups, unions, fraternal or athletic groups, or [...] the highest level of school Associate degree: [employer] program 02/26/2019 you have completed or the [...] D.O. LAB BLOOD ADD-ON Performing Organization Address [facility] Phon e Number [facility] - [address] [place], [place] [address] [place] [address] Laboratories-[facility] [address] [facility] LH (Luteinizing Hormone) (02/27/2019 2:22 PM [...] D.O. LAB BLOOD ADD-ON Performing Organization Address City/[facility] Code Phon e Number [facility] - 200 [place], [place] [address] [place] [address] [address] Follicle-Stimulating Hormone (FSH), Serum (02/27/2019 2:22 [...] D.O. LAB BLOOD ADD-ON Performing Organization Address City/[facility]/ZIP Code Phon e Number [facility] - [address] Thyroid Function [place] (02/27/2019 2:22 PM CDT) P athologist Signature TSH, Sensitive 1.9 0.3 - 4.2 02/27/2019 DTL mIU/L 7:57 PM CDT Specimen Anatomical Collection Method Collection Time Receive d Time (Source) Location / / Volume Laterality Blood (Blood, 02/27/2019 2:22 PM 02/28/20 19 6:06 Venous) CDT PM CDT Anastasia Coyne D.O. LAB BLOOD ADD-ON Performing Organization Address [facility]/ZIP [facility] Phon e Number [facility] - [phone] [place] [address] documented in this encounter Visit Diagnoses Diagnosis Infertility Female Polycystic Ovary Syndrome documented in this encounter Additional Health Concerns Assessment Noted Time PHQ-9 Depression Total Score: 10 02/27/2019 11:27 AM C DT documented as of this encounter Care Teams Talent Specialist Relationship Specialty Start Date End Date Anastasia Coyne D.O. PCP - General Family Medicine 12/05/18 11/10/[address] [place] [phone] documented as of this encounter
--- OUTSIDE RECORDS SUMMARY | 2021-12-20 00:38 | XMS_ITS | Encounter Summary ---
:[address] [facility] Address [address] [place] [address] Care Team Providers Name Role Phone Yandel Montgomrey M.D. Primary Care Provider Unavailable Encounter Details Date Type Department Care Team Description 03/14/2018 Clinical Communication [facility] Pediatric Wendy Jimenez L.P.N. and Adolescent Medicine, [facility] in [place], [place] [address] [place] [address] Social History Tobacco Use Types Packs/Day Years [...] How often do you attend alevism or alevism 1 to 4 times per [...] documented as of this encounter Care Teams Bulb Brander Relationship Specialty Start Date End Date Mellors, Yandel W, M.D. PCP - General Internal Medicine 11/11/16 12/04/18 documented as of this encounter
--- OUTSIDE RECORDS SUMMARY | 2021-12-20 00:38 | XMS_ITS | Encounter Summary ---
:1990 Author Organization [facility] Address [address] [place] [address] Care Team Providers Name Role Phone Yandel Montgomery M.D. Primary Care Provider Unavailable Encounter Details Date Type Department Care Team Description 06/20/2018 Clinical Communication Division of [facility] [place] Pediatric and William Larkin Adolescent Medicine, [address] [place] [address], in [place], [place] [phone] [place] [address] [place], [place] (Work) [phone] Social History Tobacco Use Types Packs/Day Years [...] How often do you attend nondenominational or latter-day 1 to 4 times per [...] on filedocumented in this encounter Care Teams Vehicle Body Builder Relationship Specialty Start Date End Date Yandel Montgomery M.D. PCP - General Internal Medicine 11/11/16 12/04/18 documented as of this encounter
--- OUTSIDE RECORDS SUMMARY | 2021-12-20 00:38 | XMS_ITS | Encounter Summary ---
:1990 Author Organization [facility] Address [address] [place] [address] Care Team Providers Name Role Phone Mahi Coombs M.D. Primary Care Provider Encounter Details Date Type Department Care Team Description 05/23/2020 Orders Only RST PCP [facility] Mahi Coombs M.D. [address] [place], [place] [phone] (Wo rk) Social History [...] How often do you attend religious or restorationism 1 to 4 times per [...] the highest level of school Associate degree: [employer] program 02/26/2019 you have completed or the [...] documented as of this encounter Care Teams Toddler Teacher Relationship Specialty Start Date End Date Mahi Coombs M.D. PCP - General 11/11/19 11/14/[address] [place] [address] documented as of this encounter
--- OUTSIDE RECORDS SUMMARY | 2021-12-20 00:38 | XMS_ITS | Encounter Summary ---
:1990 Author Organization [facility] Address [address] [place] [address] Care Team Providers Name Role Phone Mahi Coombs M.D. Primary Care Provider Reason for Visit Reason Onset Date Comments Outpatient COVID-19 Testing 03/28/2020 Encounter Details Date Type Department Care Team Description 03/28/2020 External Outreach Department of Sa ra Naty Brown M.D. [address] [place] [address] Infection Upper Medicine, [place] Al Wilson, P.A.-C. [address] [place] [phone] Respiratory (Primary Clinic, in [place], Dx) [place] [address] [place] [phone] Social History Tobacco Use Types Packs/Day [...] How often do you attend amish or druze 1 to 4 times per [...] for the very basics like Not v mairmar hard 02/27/2019 food, housing, medical care, and [...] Encounter created for the drive-through COVID-19 testing. CAPTAIN documented in this encounter Plan of Treatment Not on filedocumented as of this encounter Procedures Procedure Name Priority Date/Time Associated Comments Diagnosis SARS CORONAVIRUS 2 Routine 03/28/2020 7:51 AM Res ults for this PCR DETECT, V MINE CAPTAIN procedure are in the results section. documented in this encounter Results SARS Coronavirus 2 RNA Detection (03/28/2020 7:51 AM MINE CAPTAIN) [facility] Method Time Signature SARS-CoV-2 Nasopharynx 03/29/2020 [facility] Specimen 5:54 AM MINE CAPTAIN Source SARS-CoV-2 Undetected Undetected 03/29/2020 [facility] RNA by PCR 5:54 AM MINE CAPTAIN Comment: SARS-CoV-2 RNA absent. This result does not rule out COVID-19 in the patient, as the sensitivity of the test depends o n the timing of the specimen collection and the quality of the specim en. Result should be correlated with patient's history and clinical presentat ion. ----ADDITIONAL INFORMATION---- This PCR test was performed using the co Videoflot SARS-CoV-2 assay ([employer] on the may FastPay0 System under emergency use authorization (EUA) by the U.S. Food and Drug Administ ration. Fact sheets for this assay can be found at the following links: For Healthcare Providers: https://www.AgentPair a.gov/media/511216/download For Patients: https://www.fda.gov/media/ 816994/download Specimen (Source) Anatomical Collection Method Collection Time Re ceived Time Location / / Volume Laterality Varies 03/28/2020 7:51 AM MINE CAPTAIN Narrative [facility] SUPPORT RACHAEL R - 03/29/2020 5:54 AM MINE CAPTAIN Specimen Information: Specimen ID: [id number] Specimen Type: Varies Specimen Collection Start Date: 020 ??7:51 AM Specimen ID: [id number] Specimen Type: Varies Specimen Collection Start Date: 020 ??7:51 AM Specimen Received Date: 03/28/2020 ??8: 50 PM Al Wilson P.A.-C. LAB MICROBIOLOGY - GENERAL O RDERABLES Performing Organization Address City/State/ZIP Code Phon e Number [facility] [address] [place], [place] [address] SUPPORT [facility]ENTER [facility] [place] [address] Laboratory Medicine and Pathology [address] [place] [address] Dr. [place] documented in this encounter Visit Diagnoses Diagnosis Infection Upper Respiratory - Primary documented in this encounter Additional Health Concerns Infection Onset Date Last Indicated Resolved Time COVID19 Pending 03/28/2020 03/28/2020 03/28/2020 2:45 PM MINE CAPTAIN Assessment Noted Time PHQ-9 Depression Total Score: 10 02/27/2019 11:27 AM C DT documented as of this encounter Care Teams Almond Roaster Relationship Specialty Start Date End Date Mahi Coombs M.D. PCP - General 11/11/19 11/14/[address] [place] [address] documented as of this encounter
--- OUTSIDE RECORDS SUMMARY | 2021-12-20 00:38 | XMS_ITS | Encounter Summary ---
:1990 Author Organization [facility] Address [address] [place] [address] Care Team Providers Name Role Phone Yandel Montgomery M.D. Primary Care Provider Unavailable Encounter Details Date Type Department Care Team Description 12/09/2017 Clinical Communication Division of [facility] [place], Pediatric and William Rausch Adolescent Medicine, [address] [facility], in [place], [place] [phone] [place] [address] [place], [place] (Work) [phone] Social History Tobacco Use Types Packs/Day Years [...] 02/27/2019 relatives? How often do you attend bahai or adventism 1 to 4 times per year 02/27/2019 services? Do you belong to any clubs or organizations such No 02/27/2019 as bahai groups, unions, fraternal or athletic groups, or [...] documented as of this encounter Care Teams Senior Energy Market Coordinator Relationship Specialty Start Date End Date Yandel Montgomery M.D. PCP - General Internal Medicine 11/11/16 12/04/18 documented as of this encounter
--- OUTSIDE RECORDS SUMMARY | 2021-12-20 00:38 | XMS_ITS | Encounter Summary ---
:1990 Author Organization [facility] Address [address] [place] [address] Care Team Providers Name Role Phone Mahi Coombs M.D. Primary Care Provider Encounter Details Date Type Department Care Team Description 08/31/2020 Orders Only RST PCP [facility] Deandra Sierra M.D. [address] [place], [place] [phone] (Wo rk) Social History [...] 02/27/2019 relatives? How often do you attend uatsdin or pentecostalism 1 to 4 times per year 02/27/2019 services? Do you belong to any clubs or organizations such No 02/27/2019 as uatsdin groups, unions, fraternal or athletic groups, or [...] the highest level of school Associate degree: [employer] program 02/26/2019 you have completed or the [...] documented as of this encounter Care Teams Retail Manager Relationship Specialty Start Date End Date Mahi Coombs M.D. PCP - General 11/11/19 11/14/[address] [place] [phone] documented as of this encounter
--- OUTSIDE RECORDS SUMMARY | 2021-12-20 00:38 | XMS_ITS | Encounter Summary ---
:1990 Author Organization [facility] Address [address] [place] [address] Care Team Providers Name Role Phone Mahi Coombs M.D. Primary Care Provider Encounter Details Date Type Department Care Team Description 03/28/2020 Admin Visit Department of Family Medicine, [facility] [place] in [place], [place] [address] [place] [phone] Social History Tobacco Use Types Packs/Day [...] 02/27/2019 relatives? How often do you attend denominational or mormon 1 to 4 times per year 02/27/2019 services? Do you belong to any clubs or organizations such No 02/27/2019 as denominational groups, unions, fraternal or athletic groups, or [...] highest level of school Associate degree: academ Seer program 02/26/2019 you have completed or the highest degree you have received? Sex Assigned at Date Recorded Female 02/27/2019 11:22 AM CDT documented as of this encounter Plan of Treatment Not on filedocumented as of this encounter Visit Diagnoses Not on filedocumented in this encounter Additional Health Concerns Infection Onset Date Last Indicated Resolved Time COVID19 Pending 03/28/2020 03/28/2020 03/28/2020 2:45 PM HEAD STOCK TRANSFER CLERK Assessment Noted Time PHQ-9 Depression Total Score: 10 02/27/2019 11:27 AM C DT documented as of this encounter Care Teams Char Filter Operator Helper Relationship Specialty Start Date End Date Mahi Coombs M.D. PCP - General 11/11/19 11/14/20 [address] [place] [address] documented as of this encounter
--- OUTSIDE RECORDS SUMMARY | 2021-12-20 00:38 | XMS_ITS | Encounter Summary ---
:1990 Author Organization [facility] Address [address] [place] [address] Care Team Providers Name Role Phone Nelly Avalos M.D. Primary Care Provider Encounter Details Date Type Department Care Team Description 11/15/2020 E-Visit [facility] Gilma Hassan, RE : [facility] Building on the 4th (female only, age 12-75 Floor years) [address] [place] [address] Social History Tobacco Use Types Packs/Day Years [...] 02/27/2019 relatives? How often do you attend yazidism or caodaism 1 to 4 times per year 02/27/2019 services? Do you belong to any clubs or organizations such No 02/27/2019 as yazidism groups, unions, fraternal or athletic groups, or [...] highest level of school Associate degree: academ [employer] program 02/26/2019 you have completed or the [...] documented as of this encounter Care Teams Set Illustrator Relationship Specialty Start Date End Date Nelly Avalos M.D. PCP - General Family Medicine 11/15/[address] [place] [phone] documented as of this encounter
--- OUTSIDE RECORDS SUMMARY | 2021-12-20 00:38 | XMS_ITS | Encounter Summary ---
:1990 Author Organization [facility] Address [address] [place] [address] Care Team Providers Name Role Phone Yandel [...] How often do you attend anabaptist or jainism 1 to 4 times per [...] on filedocumented in this encounter Care Teams Restaurant Attendant Relationship Specialty Start Date End Date Yandel Montgomery M.D. PCP - General Internal Medicine 11/11/16 12/04/18 documented as of this encounter
--- OUTSIDE RECORDS SUMMARY | 2021-12-20 00:38 | XMS_ITS | Encounter Summary ---
:1990 Author Organization [facility] Address [address] [place] [address] Care Team Providers Name Role Phone Nelly Avalos M.D. Primary Care Provider Encounter Details Date Type Department Care Team Description 11/15/2020 E-Visit [facility] Express Gilma Hassan, RE : [facility] Building on the 4th (female only, age 12-75 Floor years) [address] [place] [address] Social History Tobacco Use Types Packs/Day Years [...] How often do you attend orthodox or gnosticist 1 to 4 times per year 02/27/2019 [...] highest level of school Associate degree: academ [employer] program 02/26/2019 you have completed or the [...] documented as of this encounter Care Teams Tray Filler Relationship Specialty Start Date End Date Nelly Avalos M.D. PCP - General Family Medicine 11/15/[address] [place] [phone] documented as of this encounter
--- OUTSIDE RECORDS SUMMARY | 2021-12-20 00:38 | XMS_ITS | Encounter Summary ---
:1990 Author Organization [facility] Address [address] [place] [address] Care Team Providers Name Role Phone Mahi Coombs M.D. Primary Care Provider Reason for Visit Reason Onset Date Comments Outpatient COVID-19 Testing 04/06/2020 Encounter Details Date Type Department Care Team Description 04/06/2020 External Outreach Department of [facility] Juana Wilson Infection Upper Medicine, [place] Faride[facility] PGarryASarbjitCGarry Respiratory (Primary Clinic, in [place], [facility] [address]) [place], [place] [address] [address] [place], [place] [phone] (Work) [phone] Social History Tobacco Use Types Packs/Day Years [...] How often do you attend hinduism or hinduism 1 to 4 times per year 02/27/2019 [...] the highest level of school Associate degree: [employer] program 02/26/2019 you have completed or the highest degree you have received? Sex Assigned at Date Recorded Female 02/27/2019 11:22 AM CDT documented as of this encounter Progress Notes Kailyn Cunningham R.N. - 04/06/2020 8:59 AM CST Encounter created for the drive-through COVID-19 testing. TEACHER documented in this encounter Plan of Treatment Not on filedocumented as of this encounter Procedures Procedure Name Priority Date/Time Associated Diagnosis Comme nts SARS CORONAVIRUS-2 Routine 04/07/2020 7:59 AM Infection Upper Results for this RNA, V MMI TEACHER Respiratory procedure are i n the results section. documented in this encounter Results SARS Coronavirus-2 RNA, V Symptomatic (04/07/2020 7:59 AM MMI TEACHER) [facility] gist Method Time Signature SARS-CoV-2 Swab, 04/08/2020 ECLR Specimen Nasopharynx 12:00 PM Source MMI TEACHER SARS CoV-2 Undetected Undetected 04/08/2020 ECLR RNA, TMA 12:00 PM MMI TEACHER Comment: SARS-CoV-2 RNA absent. This result does not rule out COVID-19 in the patient, as the sensitivity of the test depends o n the timing of the specimen collection and the quality of the specim en. Result should be correlated with patient's history and clinical presentat ion. ----ADDITIONAL INFORMATION---- This test is performed using the Aptima SARS-CoV-2 assay ([employer] which has received Emergency Use Authori zation (EUA) by the U.S. Food and Drug Administration. Fact sheets for this Emergency Use Autho rization (EUA) assay can be found at the following links: For Healthcare Providers: https://www.fd a.gov/media/144938/download For Patients: https://www.fda.gov/media/ 385167/download Specimen Anatomical Collection Method Collection Time Receive d Time (Source) Location / / Volume Laterality Varies 04/07/2020 7:59 AM 0 3:11 (Nasopharynx) MMI TEACHER PM MMI TEACHER Al Wilson P.A.-C. LAB MICROBIOLOGY - GENERAL O RDERABLES Performing Organization Address City/State/ZIP Code Phon e Number - [address] [place] [phone] [facility] [place] [address] System [address] documented in this encounter Visit Diagnoses Diagnosis Infection Upper Respiratory - Primary documented in this encounter Additional Health Concerns Infection Onset Date Last Indicated Resolved Time COVID19 Pending 04/06/2020 04/07/2020 04/08/2020 12:01 PM MMI TEACHER Assessment Noted Time PHQ-9 Depression Total Score: 10 02/27/2019 11:27 AM C DT documented as of this encounter Care Teams Studio Assistant Relationship Specialty Start Date End Date Mahi Coombs M.D. PCP - General 11/11/19 11/14/20 [address] [place] [address] documented as of this encounter
--- OUTSIDE RECORDS SUMMARY | 2021-12-20 00:39 | XMS_ITS | Encounter Summary ---
:1990 Author Organization [facility] Address [address] [place] [address] Care Team Providers Name Role Phone Yandel [...] How often do you attend methodist or orthodox 1 to 4 times per [...] Comments Blood Pressure 118/54 06/13/2017 8:11 AM DRINK MIXER Pulse 71 06/13/2017 8:11 AM DRINK MIXER Temperature - - Respiratory Rate 16 06/13/2017 8:11 AM DRINK MIXER Oxygen Saturation - - Inhaled Oxygen - - Concentration Weight 96.3 kg (212 lb 4.9 06/10/2017 2:35 PM Vital sign result oz) DRINK MIXER from [facility]. Height 174 cm (5' 8.5) 06/10/2017 2:35 PM Vital sig n result DRINK MIXER from [facility]. Body Mass Index 31.81 06/10/2017 2:35 PM DRINK MIXER documented in this encounter Medications at Time [...] AM Results for this ANTIBODY CASCADE, S DRINK MIXER procedur e are in the results section. documented in this encounter Results HX Syphilis Antibody [place], S (06/10/2017 10:28 AM DRINK MIXER) [facility] gist Method Time Signature HX Syphilis Negative Negative [facility] Igg Ab LABORATORIES - W/Reflex, S [facility] Comment: No serologic evidence of exposu re to syphilis. Specimen Anatomical Collection Method Collection Time Receive d Time (Source) Location / / Volume Laterality 06/10/2017 10:28 06/10/2017 AM DRINK MIXER 10:28 AM DRINK MIXER Michael Rodriguez D.O. LAB HISTORICAL ORDERS Performing Organization Address City/State/ZIP Code Phon e Number [facility] LABORATORIES - [address] [place], [place] [address] [facility] documented in this encounter Visit Diagnoses Not on filedocumented in this encounter Care Teams Fuel Technician Relationship Specialty Start Date End Date Yandel Montgomery M.D. PCP - General Internal Medicine 11/11/16 12/04/18 documented as of this encounter
--- OUTSIDE RECORDS SUMMARY | 2021-12-20 00:39 | XMS_ITS | Encounter Summary ---
:1990 Author Organization [facility] Address [address] [place] [address] Care Team Providers Name Role Phone Yandel Montgomery M.D. Primary Care Provider Unavailable Encounter Details Date Type Department Care Team Description 05/06/2017 Hospital Encounter HX RST LABOR&DELIVERY OP Yariel Johnson, OB Hiram [address] [place] [address] Social History Tobacco Use Types Packs/Day Years [...] How often do you attend mormonism or synagogue 1 to 4 times per year 02/27/2019 [...] on filedocumented in this encounter Care Teams Subscription Agent Relationship Specialty Start Date End Date Yandel Montgomery M.D. PCP - General Internal Medicine 11/11/16 12/04/18 documented as of this encounter
--- OUTSIDE RECORDS SUMMARY | 2021-12-20 00:39 | XMS_ITS | Encounter Summary ---
:1990 Author Organization [facility] Address [address] [place] [address] Care Team Providers Name Role Phone Unavailable [...] How often do you attend yazdanism or denominational 1 to 4 times per year 02/27/2019 [...]
--- OUTSIDE RECORDS SUMMARY | 2021-12-20 00:39 | XMS_ITS | Encounter Summary ---
:1990 Author Organization [facility] Address [address] [place] [address] Care Team Providers Name Role Phone Yandel [...] How often do you attend jainism or baptist 1 to 4 times per year 02/27/2019 [...] on filedocumented in this encounter Care Teams Laser Beam Color Scanner Operator Relationship Specialty Start Date End Date Yandel Montgomery M.D. PCP - General Internal Medicine 11/11/16 12/04/18 documented as of this encounter
--- OUTSIDE RECORDS SUMMARY | 2021-12-20 00:39 | XMS_ITS | Encounter Summary ---
:1990 Author Organization [facility] Address [address] [place] [address] Care Team Providers Name Role Phone Yandel [...] 02/27/2019 relatives? How often do you attend anglican or worship 1 to 4 times per year 02/27/2019 services? Do you belong to any clubs or organizations such No 02/27/2019 as anglican groups, unions, fraternal or athletic groups, or [...] on filedocumented in this encounter Care Teams Commercial Interior Designer Relationship Specialty Start Date End Date Yandel Montgomery M.D. PCP - General Internal Medicine 11/11/16 12/04/18 documented as of this encounter
--- OUTSIDE RECORDS SUMMARY | 2021-12-20 00:39 | XMS_ITS | Encounter Summary ---
:1990 Author Organization [facility] Address [address] [place] [address] Care Team Providers Name Role Phone Yandel Montgomery M.D. Primary Care Provider Unavailable Encounter Details Date Type Department Care Team Description 05/06/2017 Hospital Encounter HX RST LABOR&DELIVERY Maria Fernanda Bernard, NURS R.N. [address] [place] [address] Social History Tobacco Use Types Packs/Day Years [...] 02/27/2019 relatives? How often do you attend protestant or mandaen 1 to 4 times per year 02/27/2019 services? Do you belong to any clubs or organizations such No 02/27/2019 as protestant groups, unions, fraternal or athletic groups, or [...] on filedocumented in this encounter Care Teams Launderer Hand Relationship Specialty Start Date End Date Yandel Montgomery M.D. PCP - General Internal Medicine 11/11/16 12/04/18 documented as of this encounter
--- OUTSIDE RECORDS SUMMARY | 2021-12-20 00:39 | XMS_ITS | Encounter Summary ---
:1990 Author Organization [facility] Address [address] [place] [address] Care Team Providers Name Role Phone Yandel [...] How often do you attend yazdanism or advent 1 to 4 times per year 02/27/2019 [...] on filedocumented in this encounter Care Teams Registered Veterinary Technician Relationship Specialty Start Date End Date Yandel Montgomery M.D. PCP - General Internal Medicine 11/11/16 12/04/18 documented as of this encounter
--- OUTSIDE RECORDS SUMMARY | 2021-12-20 00:39 | XMS_ITS | Encounter Summary ---
:1990 Author Organization [facility] Address [address] [place] [address] Care Team Providers Name Role Phone Unavailable [...] How often do you attend mu-ism or shinto 1 to 4 times per [...] 02/10/2015 AM CDT 10:47 AM CDT Narrative [facility] - 02/11/2015 8:12 AM CDT 10-FEB-2015 URINE, MIDSTREAM, ?SoftOrd# [id number] ?(Ordered 10-FEB-2015; Collec haile 10-FEB-2015 10:19; Received 10-FEB-2015 10:46) ?[facility] ?BACTERIAL CULTURE, AEROBIC + GUILLERMO SC ? (Reported 11-FEB-2015 08:12) FINAL ?Mixed bobby. Procedure Note 08/20/2017 10-FEB-2015 URINE, MIDSTREAM, SoftOrd# [id number] (Ordered 10-FEB-2015; Collected 2014 10:19; Received 10-FEB-2015 10:46) [facility] BACTERIAL CULTURE, AEROBIC + SUSC (Rep orted 11-FEB-2015 08:12) FINAL Mixed bobby. Jarrett Jeffrey M.D. LAB MICROBIOLOGY - GENERAL O RDERABLES Performing Organization Address City/State/ZIP Code Phon e Number [facility] LABORATORIES - [address] [place] [phone] 05 [facility] (ABNORMAL) Gram Stain, Confirmatory, Urine (02/10/2015 10:19 AM CDT) [facility] gist Method Time Signature Grams Stain, Positive (A) [facility] Confirmatory, LABORATORIES - Urine [facility] Comment: Many Gram-negative bacilli ? Many Gram-positive bacilli ? Bacteria on epithelial cells ? Specimen Anatomical Collection Method Collection Time Receive d Time (Source) Location / / Volume Laterality 02/10/2015 10:19 02/10/2015 AM CDT 10:19 AM CDT Jarrett Jeffrey M.D. LAB URINE ORDERABLES Performing Organization Address City/State/ZIP Code Phon e Number [facility] LABORATORIES - [address] [place], [place] [address] [facility] Urinalysis with Microscopic (02/10/2015 10:19 AM CDT) [facility] gist Method Time Signature Source Midstream [facility] Osmolality, 409 150 - [facility] 24 HR, U 1150 LABORATORIES - MOSM/KG [facility] Glucose 2 0 - 15 [facility] MG/DL [facility] Protein, U 5 <22 MG/DL [facility] Comment: ? ADDITIONAL INFORMATIO N ? On 11/23/2013 the total protein assay me thod changed resulting ? in approximately a 20% increase in prote in values. ? Protein/Osmolality 0.12 <0.27 [facility] Comment: ? ADDITIONAL INFORMATIO N ? On 11/23/2013 the total protein assay me thod changed resulting ? in approximately a 20% increase in prote in values. ? Predicted 24 Hr Protein 99 MG/24 [facility] Predicted Range 25-402 MG/24 H [facility] Hemoglobin, QL Negative Negative [facility] pH, 24 HR, U 5.7 4.5 - 8.0 [facility] LABOR [facility] Appearance Normal Normal [facility] LABORAT [facility] Specimen Anatomical Collection Method Collection Time Receive d Time (Source) Location / / Volume Laterality 02/10/2015 10:19 02/10/2015 AM CDT 10:19 AM CDT Jarrett Jeffrey M.D. LAB URINE ORDERABLES Performing Organization Address City/[facility]/ZIP Code Phon e Number [facility] LABORATORIES - [address] [place] [address] [facility] Gram Stain, Urine (02/10/2015 10:19 AM CDT) P athologist Signature Gram's Stain, . [facility] Screen, U [facility] Comment: Screen positive. See Gram Stain Confirma tory for staining ? result. ? Specimen Anatomical Collection Method Collection Time Receive d Time (Source) Location / / Volume Laterality 02/10/2015 10:19 02/10/2015 AM CDT 10:19 AM CDT Jarrett Jeffrey M.D. LAB URINE ORDERABLES Performing Organization Address City/[facility]/ZIP Code Phon e Number [facility] LABORATORIES - [address] [place] [address] [facility] (ABNORMAL) Microscopic Manual (02/10/2015 10:19 AM CDT) Patholo gist Method Time Signature Microscopy Abnormal [facility] WBC 1-3 1-3 [facility] (Males); LABORATORIES - 1-10 [facility] (Females[facility] /HPF Squamous 1-3 /HPF [facility] Epithelial LABORATORIES - [facility] Bacteria Present (A) [facility] Specimen Anatomical Collection Method Collection Time Receive d Time (Source) Location / / Volume Laterality 02/10/2015 10:19 02/10/2015 AM CDT 10:19 AM CDT Jarrett Jeffrey M.D. LAB URINE ORDERABLES Performing Organization Address City/[facility] Code Phon e Number [facility] LABORATORIES - [address] [place] [phone] [facility] Dipstick, POCT, Urine (lab) (02/10/2015 9:57 AM CDT) [facility] gist Method Time Signature Ketone, POCT, Negative Negative [facility] U LABORATORIES - [facility] Specific 1.010 1.001 - [facility] [place], 1.035 LABORATORIES - POCT, U [facility] Protein, Negative Negative [facility] POCT, [facility] Urobilinogen, 0.2 0.2 - 1.0 [facility] POCT, Urine LABORATORIES [facility] Glucose, Negative Negative [facility] POCT, HU [facility] Bilirubin, Negative Negative [facility] POCT, HU [facility] Blood, POCT, Negative Negative [facility] U [facility] pH, POCT, 5.5 5.0 - 8.0 [facility] Urine LABORATORIES [facility] Nitrites, Negative Negative [facility] POCT, HU [facility] Leukocytes, Negative Negative [facility] POCT, HU [facility] Specimen Anatomical Collection Method Collection Time Receive d Time (Source) Location / / Volume Laterality 02/10/2015 9:57 AM 5 9:57 CDT AM CDT Historical Provider LAB POCT ORDERABLES - DEVICE Performing Organization Address City/[facility]/ZIP Code Phon e Number [facility] LABORATORIES - [address] [place] [phone] [facility] documented in this encounter Visit Diagnoses Not on filedocumented in this encounter
--- OUTSIDE RECORDS SUMMARY | 2021-12-20 00:39 | XMS_ITS | Encounter Summary ---
:1990 Author Organization [facility] Address [address] [place] [address] Care Team Providers Name Role Phone Yandel [...] often do you attend latter day or yazidism 1 to 4 times per year 02/27/2019 [...] 3:50 PM Results for this GYNECOLOGY IMAGE CAR SALES CONSULTANT procedure a re in EXAM the results section. documented in this encounter Results OBSTETRICS AND GYNECOLOGY IMAGE EXAM (05/30/2017 3:50 PM CAR SALES CONSULTANT) Specimen (Source) Anatomical Collection Method Collection Time Re ceived Time Location / / Volume Laterality 05/30/2017 3:50 PM CAR SALES CONSULTANT Narrative [facility] - 05/30/2017 4:26 PM CAR SALES CONSULTANT This order has been created and auto-finalized [...] filedocumented in this encounter Care Teams Toll Collector Supervisor Relationship Specialty Start Date End Date Yandel Montgomery M.D. PCP - General Internal Medicine 11/11/16 12/04/18 documented as of this encounter
== END 2021-12-14 12:25 | disposition home or self-care (01) | DRG 807 ==
LOC: OB OUT 20:56 → OB 21:32
PROVIDERS: Obstetrics & Gynecology; Preventive Medicine Occupational Medicine; Admitting Provider Obstetrics & Gynecology; Visit Provider Obstetrics & Gynecology
DX: O34.211 Maternal care for low transverse scar from previous cesarean delivery (principal); Z37.0 Single live birth; O77.0 Labor and delivery complicated by meconium in amniotic fluid; O70.1 Second degree perineal laceration during delivery; O71.82 Other specified trauma to perineum and vulva; Z3A.40 40 weeks gestation of pregnancy
CPT/HCPCS: 01967; 36415; 84112; 85018; 85025; 86703; 86706; 86803; 86850; 86900; 86901; 87340; 87635; A9270; J2001; J2405; J2795; J3010; J7120

== ENCOUNTER 2023-03-07 12:15 | Outpatient (CLI) | payer OTHER, SELFPAY ==
--- NOTE | 2023-03-07 12:15 | CRLHL7_ITS ---
For Patients: As a result of the Century Cures Act, medical imaging exams and procedure reports are released immediately into your electronic medical record. You may view this report before your referring provider. If you have questions, please contact your health care provider. INDICATION: First trimester scan, establish dates. COMPARISON: None. TECHNIQUE: Real-time tucker-scale imaging of the pelvis was performed. FINDINGS: Sonographic imaging demonstrates a single living intrauterine gestation. The embryo demonstrates a regular cardiac rate measuring 163 beats per minute. The embryo`s crown-rump length measurement of 1.6 cm corresponds to a gestational age of 8 weeks 0 days with a sonographic due date of 10/17/2023. There is a normal-appearing yolk sac. There are no gross abnormalities noted within the embryo at this early state of development. The gestational sac has a normal appearance. There is no evidence of a perigestational hemorrhage. The amount of fluid within the sac appears appropriate for gestational age. The cervix is closed. The myometrium appears normal. Normal right ovary. Left ovary not visualized. There are no suspicious fluid collections noted in the cul-de-sac. IMPRESSION: Normal first trimester OB ultrasound exam. Gestational age calculated at 8 weeks 0 days with a sonographic due date of 10/17/2023. Dictated by dAelfo Rao MD @ 03/07/2023 1:08:16 PM (Electronically Signed)
== END 2023-03-07 12:16 | disposition home or self-care (01) ==
LOC: US 12:16
PROVIDERS: Visit Provider Physician Assistant
DX: Z34.91 Encounter for supervision of normal pregnancy, unspecified, first trimester (principal); Z3A.08 8 weeks gestation of pregnancy
CPT/HCPCS: 76817; 86703; 86706; 86803; 86850; 86900; 86901; 87086; 87340

== ENCOUNTER 2023-03-07 13:25 | Outpatient (CLI) | payer OTHER, SELFPAY ==
[2023-03-08 09:51] LABS: Chlamydia DNA Amplified* NOT DETECTED (No Detected); GC DNA Amplified* NOT DETECTED (No Detected)
== END 2023-03-07 13:26 | disposition home or self-care (01) ==
PROVIDERS: Visit Provider Physician Assistant
DX: Z34.91 Encounter for supervision of normal pregnancy, unspecified, first trimester (principal); Z3A.08 8 weeks gestation of pregnancy
CPT/HCPCS: 86592; 86703; 86704; 86706; 86762; 86787; 86803; 86850; 86900; 86901; 87086; 87340; 87491; 87591

== ENCOUNTER 2023-05-30 12:49 | Outpatient (CLI) | payer OTHER, SELFPAY ==
--- OUTSIDE RECORDS SUMMARY | 2023-05-30 12:52 | XMS_ITS | Encounter Summary ---
Author Name Unknown Organization [facility] Address [address] [place] [address] Care Team Providers Care Snuff Drier Name Role Phone Nelly Avalos M.D. Primary Care Provider [phone] Encounter Details Date Type Department Care Team (Latest Contact Info) Description 12/20/2022 12:38 PM CDT - 12/20/2022 11:59 PM CDT Hospital Encounter Department of Laboratory Medicine in [address] [phone] Nelly Avalos M.D. [address] [place] [phone] Lightheadedness; Fatigue; Polycystic Ovary Syndrome; Screening Examination Diabetes Mellitus Discharge Disposition: Home or Self Care Social History Tobacco Use Types Packs/Day Years Used Date Smoking Tobacco: Never Smokeless Tobacco: Never Alcohol Use Standard Drinks/Week Comments Yes 1 (1 standard drink = 0.6 oz pur e alcohol) Maybe once a month, if that. Humiliation, Afraid, Rape, and Kick questionnair e Answer Date Recorded Within the last year, have y ou been afraid of your partner or ex-partner? No 05/06/2022 Within the last year, have y ou been humiliated or emotionally abused in other ways by your partner or ex-partner? No Within the last year, have y ou been kicked, hit, slapped, or otherwise physically hurt by your partner or ex-partner? No 05/06/2022 Within the last year, have y ou been raped or forced to have any kind of sexual activity by your partner or ex-partner? No 05/06/2022 Social Connection and Isolation Panel [NHANES] A nswer Date Recorded In a typical week, how many times do you talk on the phone with family, friends, or neighbors? Once a week 05/06/2022 How often do you get together with friends or re latives? Never 05/06/2022 How often do you attend anabaptist or zoroastrianism serv ices? Never 05/06/2022 Do you belong to any clubs o r organizations such as anabaptist groups, unions, fraternal or athletic groups, or school groups? No 05/06/2022 How often do you attend meet ings of the clubs or organizations you belong to? Never 05/06/2022 Are you , , di vorced, , never , or living with a partner? 05/06/2022 AUDIT-C Answer Date Recorded Q1: How often do you have a drink containing alc ohol? 2-4 times a month 05/06/2022 Q2: How many drinks containi ng alcohol do you have on a typical day when you are drinking? 1 or 2 05/06/2022 Q3: How often do you have si x or more drinks on one occasion? Never 05/06/2022 Overall Financial Resource Strain (CARDIA) Answe r Date Recorded How hard is it for you to pa y for the very basics like food, housing, medical care, and heating? Somewhat hard 05/06/2022 PHQ-2 Answer Date Recorded PHQ-2 Score 6 05/10/2022 [facility] - Occupational Stress Questionnaire Answer Date Recorded Do you feel stress - tense, restless, nervous, or anxious, or unable to sleep at night because your mind is troubled all the time - these days? Very much 05/06/2022 Exercise Vital Sign Answer Date Recorde d On average, how many days pe r week do you engage in moderate to strenuous exercise (like a brisk walk)? 1 day 05/06/2022 On average, how many minutes do you engage in exercise at this level? 20 min 05/06/2022 Hunger Vital Sign Answer Date Recorded Within the past 12 months, y ou worried that your food would run out before you got the money to buy more. Sometimes true Within the past 12 months, t he food you bought just didn't last and you didn't have money to get more. Sometimes true PRAPARE - Transportation Answer Date Re corded In the past 12 months, has l ack of transportation kept you from medical appointments or from getting medications? No 04/13 In the past 12 months, has l ack of transportation kept you from meetings, work, or from getting things needed for daily living? No 05/06/2022 Housing Stability Vital Sign Answer Néstor e Recorded In the last 12 months, was t here a time when you were not able to pay the mortgage or rent on time? No 05/06/2022 In the last 12 months, how many places have you lived? 2 05/06/2022 In the last 12 months, was t here a time when you did not have a steady place to sleep or slept in a halfway (including now)? No 05/06/2022 Depression Answer Date Recor ded PHQ-9 Total Score (max 27) 26 05/10 Nutrition Answer Date Recorded Nutrition: EVOO Fat Source Yes 05/06 On average, how many serving s of fruits and vegetables do you eat per day (serving size is equal to 1 cup or approximately the size of a tennis ball)? 2-3 05/06/2022 Dental Answer Date Recorded Dental: Regular Dentist Yes 05/06/20 Employment Answer Date Recorded Employment status Employed and actively working without restrictions 05/06/2022 Education Answer Date Recorded What is the highest level of school you have completed or the highest degree you have received? Associate degree: occupational, technical, or vocational program 05/06/2022 Sex and Gender Information Value Date Recorded Sex Assigned at Female 02/27/2019 11:22 AM CDT Gender Identity Female 02/27/2019 11:22 AM CDT Sexual Orientation Straight 02/02/2021 11 :50 AM CDT documented as of this encounter Medications at Time of Discharge Medication Sig Dispensed Refills Start Date End Date amoxicillin (AMOXIL) 500 mg capsuleIndications:Acne Take 1 capsule (500 mg total) by mouth daily. 90 capsule 1 06/13/2022 12/24/2022 documented as of this encounter Plan of Treatment Not on file documented as of this encounter Procedures Procedure Name Priority Date/Time Associated Diagnosis Comments VITAMIN D, IMMUNOASSAY, TOTAL, S Routine 12/20/2022 12:44 PM CDT THYROID FUNCTION CASCADE, S Routine 12/20/2022 12:44 PM CDT Fatigue Lightheadedness IRON AND TOT IRON-BINDING CAPACITY, S/P Routine 12/20/2022 12:44 PM CDT Fatigue Lightheadedness FERRITIN, S Routine 12/20/2022 12:44 PM CDT Fatigue Lightheadedness CBC WITH DIFFERENTIAL, B Routine 12/20/2022 12:43 PM CDT Lightheadedness HEMOGLOBIN A1C, B Routine 12/20/2022 12: 43 PM CDT Polycystic Ovary Syndrome Screening Examination Diabetes Mellitus COMPREHENSIVE METABOLIC PANEL, S/P Routine 12/20/2022 12:43 PM CDT Fatigue Lightheadedness documented in this encounter Results * Vitamin D, Immunoassay, Total, Serum (12/20/2022 12:44 PM CDT) Vitamin D, Immunoassay, Total, S 29 20 - 80 ng/mL 12/21/2022 1:29 AM CDT ECLR Comment: Optimum levels within the healthy population are 20-50, patients with bone disease may benefit from high levels within this range Blood 12/20/2022 12:4 4 PM CDT 12/20/2022 8:25 PM CDT Nelly Avalos M.D. LAB BLOOD ADD-ON [facility] [address] [place] [id number], [facility] ECLR [facility] in [place] [address] [place] [address] * (ABNORMAL) Iron and Total Iron-Binding Capacity (12/20/2022 12:44 PM CDT) Iron 68 35 - 145 mcg/dL 12/20/2022 7:51 PM CDT RDWG Total Iron Binding Capacity 205(L) 250 - 400 mcg/dL 12/20/2022 7:51 PM CDT RDW[facility] Percent Saturation 33 14 - 50 % 12/20/2022 7:51 PM CDT [facility] Blood (Blood, Venous) 12/20/2022 12:44 PM CDT 12/20/2022 6:48 PM CDT Nelly Avalos M.D. LAB BLOOD ADD-ON Performing Organization Address [facility] Co de Phone Number FORMERLY NAMED [facility] [address] [place] [phone], [facility] RDWG [facility] in [address] [phone] * Ferritin (12/20/2022 12:44 PM CDT) Ferritin, S 64 6 - 175 mcg/L 12/20/2022 7:57 PM CDT RDWG Comment: Biotin has been identified by the co teacher as a potential interfering substance. Higher concentrations of biotin may be found in multivitamins, hair/nail supplements, and workout supplements. If the result does not match clinical observations, repeat testing after patient refrains from the use of supplements for at least 12 hours. Blood (Blood, Venous) 12/20/2022 12:44 PM CDT 12/20/2022 6:47 PM CDT Nelly Avalos M.D. LAB BLOOD ADD-ON Performing Organization Address City/[facility]/ZIP Co de Phone Number FORMERLY NAMED [facility] [address] [place] [phone], [facility] RDWG [facility] in [address] [place] [address] * Thyroid Function [place] (12/20/2022 12:44 PM CDT) TSH, Sensitive 1.8 0.3 - 4.2 mIU/L 12/20/2022 1:51 PM CDT CNFL Blood (Blood, Venous) 12/20/2022 12:44 PM CDT 12/20/2022 12:45 PM CDT Nelly Avalos M.D. LAB BLOOD ADD-ON [facility] [address] [place] [phone], [facility] CNFL [facility] in [address] [address] * Comprehensive Metabolic Panel (12/20/2022 12:43 PM CDT) Potassium, P 4.3 3.6 - 5.2 mmol/L 12/20/2022 1:11 PM CDT CNFL Sodium, P 141 135 - 145 mmol/L 12/20/2022 1:11 PM CDT CNFL Chloride, P 104 98 - 107 mmol/L 12/20/2022 1:11 PM CDT CNFL Bicarbonate, P 27 22 - 29 mmol/L 12/20/2022 1:11 PM CDT CNFL Anion Gap, P 10 7 - 15 12/20/2022 1:11 PM CDT CNFL BUN (Blood Urea Nitrogen), P 11 6 - 21 mg/dL 12/20/2022 1:11 PM CDT CNFL Creatinine 0.78 0.59 - 1.04 mg/dL 12/20/2022 1:11 PM CDT CNFL Estimated GFR (eGFR) >90 >=60 mL/min/BS A 12/20/2022 1:11 PM CDT CNFL Comment: Estimated GFR calculated using the 2020 CKD_EPI creatinine equation. Calcium, Total, P 9.0 8.6 - 10.0 mg/dL 12/20/2022 1:11 PM CDT CNFL Glucose, P 91 70 - 140 mg/dL 12/20/2022 1:11 PM CDT CNFL Protein, Total, P 6.7 6.3 - 7.9 g/dL 12/20/2022 1:11 PM CDT CNFL Albumin, P 4.0 3.5 - 5.0 g/dL 12/20/2022 1:11 PM CDT CNFL Aspartate Aminotransferase (AST), P 21 8 - 43 U/L 12/20/2022 1:11 PM CDT CNFL Alkaline Phosphatase, P 71 35 - 104 U/L 12/20/2022 1:11 PM CDT CNFL Alanine Aminotransferase (ALT), P 18 7 - 45 U/L 12/20/2022 1:11 PM CDT CNFL Bilirubin, Total, P 0.2 <=1.2 mg/dL 12/20/2022 1:11 PM CDT CNFL Blood (Blood, Venous) 12/20/2022 12:43 PM CDT 12/20/2022 12:45 PM CDT Nelly Avalos M.D. LAB BLOOD ADD-ON [address] [address], [address] [address] * Hemoglobin A1c (12/20/2022 12:43 PM CDT) Hemoglobin A1c, B 4.8 4.2 - 5.6 % 12/20/2022 1:03 PM CDT CNFL Blood (Blood, Venous) 12/20/2022 12:43 PM CDT 12/20/2022 12:45 PM CDT Nelly Avalos M.D. LAB BLOOD ADD-ON [address] [address], [place] [address] [address] * CBC with Differential, Blood (12/20/2022 12:43 PM CDT) [facility] Hemoglobin 14.3 11.6 - 15.0 g/dL 12/20/2022 1:00 PM CDT CNFL Hematocrit 43.1 35.5 - 44.9 % 12/20/2022 1:00 PM CDT CNFL Erythrocytes 4.63 3.92 - 5.13 x10(12)/L 12/20/2022 1:00 PM CDT CNFL MCV 93.1 78.2 - 97.9 fL 12/20/2022 1:00 PM CDT CNFL RBC Distrib Width 12.5 12.2 - 16.1 % 12/20/2022 1:00 PM CDT CNFL Platelet Count 210 157 - 371 x10(9)/L 12/20/2022 1:00 PM CDT CNFL Leukocytes 5.2 3.4 - 9.6 x10(9)/L 12/20/2022 1:00 PM CDT CNFL Neutrophils 3.31 1.56 - 6.45 x10(9)/L 12/20/2022 1:00 PM CDT CNFL Lymphocytes 1.35 0.95 - 3.07 x10(9)/L 12/20/2022 1:00 PM CDT CNFL Monocytes 0.40 0.26 - 0.81 x10(9)/L 12/20/2022 1:00 PM CDT CNFL Eosinophils 0.12 0.03 - 0.48 x10(9)/L 12/20/2022 1:00 PM CDT CNFL Basophils <0.04 0.01 - 0.08 x10(9)/L 12/20/2022 1:00 PM CDT CNFL Blood (Blood, Venous) 12/20/2022 12:43 PM CDT 12/20/2022 12:45 PM CDT Nelly Avalos M.D. LAB BLOOD ADD-ON Performing Organization Address City/State/[facility] Co de Phone Number [facility] [id number] [place] [address], [place] [facility] [address] [address] documented in this encounter Visit Diagnoses Diagnosis Lightheadedness Fatigue Polycystic Ovary Syndrome Screening Examination Diabetes Mellitus documented in this encounter Additional Health Concerns Assessment Noted Time PHQ-9 Depression Total Score: 26 022 3:12 PM DIRECTOR DISTRIBUTION documented as of this encounter Care Teams Snuff Drier Relationship Specialty Start Date End Date Nelly Avalos M.D. [address] [place] [phone] PCP - General Family Medicine 11/15/20 documented as of this encounter
--- OUTSIDE RECORDS SUMMARY | 2023-05-30 12:52 | XMS_ITS | Clinical Summary ---
Author Name Unknown Organization [facility] Address [address] [place] [address] Care Team Providers Care Chemist Instrumentation Name Role Phone Nelly Avalos M.D. Primary Care Provider Source Comments Patient records contain information from all sites at [facility]. For routine questions regarding patient records, call [phone] during business hours, M-F 8:00 AM - 5:00 PM Central Time. Record requests for emergency care only can be directed to [phone] at any time.[facility] Allergies No known active allergies Medications Medication Sig Dispensed Refills Start Date End Date Status amoxicillin (AMOXIL) 500 mg capsuleIndications:A cne Take 1 capsule (500 mg total) by mouth daily. 90 capsule 3 01/24/2023 Active Active Problems Problem Noted Date Diagnosed Date Depression 05/10/2022 Acne 02/27/2019 Polycystic Ovary Syndrome 09/24/2016 Resolved Problems Problem Noted Date Diagnosed Date Resolved Date Health Maintenance Examination Adult 02/27/2019 02/12/2021 Overview: - Pap: 07/2017 - normal, due 07/2020 - BMI: 24 - Vaccinations: Premature Rupture Membrane 05/06/2017 1 Pyelonephritis Acute 07/10/2016 019 Immunizations Name Administration Dates Next Due DTaP (Infanrix, Tripedia) 09/02/1996 H1N1 All Forms 04/27/2009 HepB, Unspecified 03/04/1996,08/29/1995,07/04/18 96 Influenza (IM) Preservative Free 05/01/2015 Influenza, Unspecified 02/25/2019 MMR 01/05/2004 OPV 07/28/1997 SARS-COV-2 (COVID-19) - JAMESON (J&J) 12/13/2020 Td (Adult), adsorbed 01/05/2004 Tdap 11/01/2021,04/17/2017 influenza vaccine quad (FLUZONE/FLUARIX) (6 months and older)(PF) 02/20/2022,02/22/2021,06/22/2020,2017,03/20/2017 Family History Medical History Relation Name Comments [...] Date Smoking Tobacco: Never Smokeless Tobacco: Never Tobacco Cessation:Counseling Given: No Alcohol Use Standard Drinks/Week Comments Yes 1 [...] Never 05/06/2022 How often do you attend nondenominational or hinduism serv ices? Never 05/06/2022 Do you belong to any clubs o r organizations such as nondenominational groups, unions, fraternal or athletic [...] 05/06/2022 PHQ-2 Answer Date Recorded PHQ-2 Score 3 01/23/2023 [facility] - Occupational [...] place to sleep or slept in a residential (including now)? No 05/06/2022 Depression Answer Date Recor ded PHQ-9 Total Score (max 27) 18 01/23 Nutrition Answer Date Recorded Nutrition: EVOO Fat [...] Orientation Straight 02/02/2021 11 :50 AM CDT Last Filed Vital Signs Vital Sign Reading Time Taken Comments Blood Pressure 104/69 05/10/2022 1:14 PM CASE REPAIRER Pulse 92 05/10/2022 1:14 PM CASE REPAIRER Temperature 36.4 ??C (97.5 ??F) 01/24/2023 12:43 PM C DT Respiratory Rate 18 02/01/2021 1:32 PM CDT Oxygen Saturation 98% 01/24/2023 12:43 PM CDT Inhaled Oxygen Concentration - - Weight 75 kg (165 lb 5.5 oz) 01/24/2023 12:43 PM CDT Height 174 cm (5' 8.5) 01/24/2023 12:43 PM CDT Body Mass Index 24.77 01/24/2023 12:43 PM CDT Plan of Treatment Health Maintenance Due Date Last Done Comments Hepatitis C Screening 1990 COVID-19 Vaccine ( season) 2023 12/13/2020 Depression Monitoring (PHQ-9) 05/25/2023 01/23/2023 Cervical Cancer Screening 06/22/20252020, 06/22/2020, 07/23/2017 DTaP,Tdap,and Td Vaccines (5 - Td or Tdap) 11/02/2031 11/01/2021, 04/17/2017, 01/05/2004, Additional history exists Hepatitis B Vaccines Completed 03/04/1996, 08/29/1995, 07/04/1995 HIV Screening Completed 11/01/2016 Influenza Vaccine Completed 02/13/2023, , 02/22/2021, Additional history exists HPV Vaccines Aged Out No longer eligi ble based on patient's age to complete this topic Pneumococcal vaccine (0-64 years) Aged Out No longer eligible based on patient's age to complete this topic Care Teams Chemist Instrumentation Relationship Specialty Start Date End Date Nelly Avalos M.D. [address] [place] [address] [place] [phone] PCP - General Family Medicine 11/15/20
--- OUTSIDE RECORDS SUMMARY | 2023-05-30 12:52 | XMS_ITS | Encounter Summary ---
Author Name Unknown Organization [facility] Address [address] [place] [address] Care Team Providers Care Asphalt Tamping Machine Operator Name Role Phone Nelly Avalos M.D. Primary Care Provider [phone] Reason for Visit * Reason Comments Annual Exam Gets lightheaded all the time things goes white, thing looks white like the TV, can't sleep when goes to sleep can't stay asleep, bad brain fog, Med Refill Amoxicillin * Outpatient (Routine) - Closed Specialty Diagnoses / Procedures Referred By Sita sandoval Referred To Contact Family Medicine Ashley Cowan M.D. [address] [place] [phone] [facility] Region Referral ID Status Reason Start Date Expiration Date Visits Re quested Visits Authorized [id number] Closed 05/10/2022 05/09/2025 1 1 Encounter Details Date Type Department Care Team (Late st Contact Info) Description 01/24/2023 12:45 PM CDT Office Visit Department of Family Medicine, [facility], in [address] [phone] Nelly Avalos M.D. [address] [place] [phone] General Medical Examination Adult (Primary Dx); Acne; Depression Discharge Disposition: Home or Self Care Social [...] Never 05/06/2022 How often do you attend sikhism or temple serv ices? Never 05/06/2022 Do you belong to any clubs o r organizations such as sikhism groups, unions, fraternal or athletic groups, or [...] Answer Date Recorded PHQ-2 Score 3 01/23/2023 [facility] - Occupational Stress Questionnaire Answer Date Recorded [...] place to sleep or slept in a mcc (including now)? No 05/06/2022 Depression Answer Date [...] Sign Reading Time Taken Comments Blood Pressure - - Pulse - - Temperature 36.4 ??C (97.5 ??F) 01/24/2023 12:43 PM C DT Respiratory Rate - - Oxygen Saturation 98% 01/24/2023 12:43 PM CDT Inhaled Oxygen Concentration - - Weight 75 kg (165 lb 5.5 oz) 01/24/2023 12:43 PM CDT Height 174 cm (5' 8.5) 01/24/2023 12:43 PM CDT Body Mass Index 24.77 01/24/2023 12:43 PM CDT documented in this encounter H&P Notes * Nelly Avalos M.D. - 01/24/2023 12:45 PM CDT SUBJECTIVE The patient verbally consented to an audio recording of their visit to assist with the completion of documentation. The recording is not retained after the visit is summarized. CHIEF COMPLAINT / REASON FOR VISIT Yeny Saleem is a 32 y.o. female who presents for evaluation of Annual Exam (Gets lightheadedall the time things goes white, thing looks white like the TV, can't sleep when goes to sleep can'tstay asleep, bad brain fog, ) and Med Refill (Amoxicillin ). HISTORY OF PRESENT ILLNESS Yeny states that her anxiety worsened post partem, and she continues to be anxious all the time. She has been experiencing episodes for a long time, probably since she was a teenager, where she frequently gets lightheaded and everything goes black. Other times things look white and fuzzy, likea TV channel that is off the air. She does not have headaches or nausea with these episodes. Usually when these episodes occur, she cannot see or she gets really dizzy for 10-20 seconds, and she has to stop and it will go away. No altered consciousness or unusual staring during the episodes. Most of the time it happens when she is going from sitting to standing or going from lying down to sitting. These episodes may occur anywhere from 2-6 times a day. No heart racing or irregular beats. She noticed while she was nursing that while the episodes still happened, the frequency may have been less. She typically has 5 cups of caffeine through the day. Last caffeine drink is usually at lunchtime.Water intake is approximately 3-4 glasses of water. She is not sleeping well. She is very tired at night but cannot fall asleep, and she cannot stay asleep. She starts thinking and cannot shut it off. She estimates she is probably getting 5-1/2 to 6-1/2 hours of sleep. She has tried melatonin and felt even more drowsy when taking it. She feels she looks very pale and bruises easily. Her iron and hemoglobin are within normal limits on her recent labs. She does admit that she has a lot on her plate, but does not like asking for help. She does have a good support system in her boyfriend. She has contact information for psychology but has not met with them previously .She is not interested in any medication for anxiety or depression. She continues to do well on amoxicillin for her acne but wonders if it is good to be on it usp. No hearing concerns. No hoarseness. No chest pain or shortness of breath. No heart racing or ankle swelling. No heartburn, nausea or vomiting. No stomach pain, no blood in the stools, no blood in theurine. A few weeks ago she thought she had a kidney infection but symptoms cleared up. OBJECTIVE Temp 36.4 ??C (Temporal) Ht 174 cm Wt 75 kg SpO2 98% BMI 24.77 kg/m?? PHYSICAL EXAM Constitutional General: She is not in acute distress. Appearance: Normal appearance. She is not ill-appearing, toxic-appearing or diaphoretic. HENT Head: Normocephalic and atraumatic. Right Ear: Tympanic membrane, ear canal and external ear normal. Left Ear: Tympanic membrane, ear canal and external ear normal. Nose: Nose normal. No rhinorrhea. Mouth/Throat: Mouth: Mucous membranes are moist. Pharynx: Oropharynx is clear. No oropharyngeal exudate or posterior oropharyngeal erythema. Eyes General: No scleral icterus. Right eye: No discharge. Left eye: No discharge. Conjunctiva/sclera: Conjunctivae normal. Cardiovascular Rate and Rhythm: Normal rate and regular rhythm. Heart sounds: Normal heart sounds. No murmur heard. No friction rub. No gallop. Pulmonary Effort: Pulmonary effort is normal. No respiratory distress. Breath sounds: Normal breath sounds. No stridor. No wheezing, rhonchi or rales. Abdominal General: Abdomen is flat. There is no distension. Palpations: Abdomen is soft. There is no mass. Tenderness: There is no abdominal tenderness. There is no guarding or rebound. Musculoskeletal General: No swelling. Normal range of motion. Cervical back: Normal range of motion and neck supple. No muscular tenderness. Right lower leg: No edema. Left lower leg: No edema. Lymphadenopathy Cervical: No cervical adenopathy. Skin General: Skin is warm and dry. Coloration: Skin is not jaundiced. Findings: No rash. Neurological General: No focal deficit present. Mental Status: She is alert and oriented to person, place, and time. Mental status is at baseline. Gait: Gait normal. Psychiatric Mood and Affect: Mood normal. Behavior: Behavior normal. Thought Content: Thought content normal. Judgment: Judgment normal. Results for orders placed or performed during the hospital encounter of 12/20/22 CBC with Differential, Blood Result Value Ref Range Hemoglobin 14.3 11.6 - 15.0 g/dL Hematocrit 43.1 35.5 - 44.9 % Erythrocytes 4.63 3.92 - 5.13 x10(12)/L MCV 93.1 78.2 - 97.9 fL RBC Distrib Width 12.5 12.2 - 16.1 % Platelet Count 210 157 - 371 x10(9)/L Leukocytes 5.2 3.4 - 9.6 x10(9)/L Neutrophils 3.31 1.56 - 6.45 x10(9)/L Lymphocytes 1.35 0.95 - 3.07 x10(9)/L Monocytes 0.40 0.26 - 0.81 x10(9)/L Eosinophils 0.12 0.03 - 0.48 x10(9)/L Basophils <0.04 0.01 - 0.08 x10(9)/L Thyroid Function [place] Result Value Ref Range TSH, Sensitive 1.8 0.3 - 4.2 mIU/L Ferritin Result Value Ref Range Ferritin, S 64 6 - 175 mcg/L Iron and Total Iron-Binding Capacity Result Value Ref Range Iron 68 35 - 145 mcg/dL Total Iron Binding Capacity 205 (L) 250 - 400 mcg/dL Percent Saturation 33 14 - 50 % Hemoglobin A1c Result Value Ref Range Hemoglobin A1c, B 4.8 4.2 - 5.6 % Comprehensive Metabolic Panel Result Value Ref Range Potassium, P 4.3 3.6 - 5.2 mmol/L Sodium, P 141 135 - 145 mmol/L Chloride, P 104 98 - 107 mmol/L Bicarbonate, P 27 22 - 29 mmol/L Anion Gap, P 10 7 - 15 BUN (Blood Urea Nitrogen), P 11 6 - 21 mg/dL Creatinine 0.78 0.59 - 1.04 mg/dL Estimated GFR (eGFR) >90 >=60 mL/min/BSA Calcium, Total, P 9.0 8.6 - 10.0 mg/dL Glucose, P 91 70 - 140 mg/dL Protein, Total, P 6.7 6.3 - 7.9 g/dL Albumin, P 4.0 3.5 - 5.0 g/dL Aspartate Aminotransferase (AST), P 21 8 - 43 U/L Alkaline Phosphatase, P 71 35 - 104 U/L Alanine Aminotransferase (ALT), P 18 7 - 45 U/L Bilirubin, Total, P 0.2 <=1.2 mg/dL Vitamin D, Immunoassay, Total, Serum Result Value Ref Range Vitamin D, Immunoassay, Total, S 29 20 - 80 ng/mL ASSESSMENT / PLAN #1 General Medical Examination Adult Regarding her light-headed episodes, discussed the less likely scenario of aura migraines without pain. Because they generally occur with positional changes and her blood pressure is a little more onthe lower side, she could be more sensitive to dehydration. Reviewed consideration regarding caffeine reduction and increasing water intake and electrolytes. Reviewed the role of lack of sleep on autoregulation in the body. If worsening or concerns with new headaches, could consider brain MRI and Neurology consultation. #2 Acne We discussed potential risks with long-term amoxicillin use to include increased risk of C difficile infection. Other options for treatment of acne include oral contraceptive pills, tretinoin, retinol, salicylic acid, benzoyl peroxide, topical antibiotics such as clindamycin which she has tried previously without benefit. Advised consideration of a short trial off of the amoxicillin at any time in the future. If the acne returns, she can always restart the amoxicillin. Refill for amoxicillin sent to her pharmacy. - amoxicillin (AMOXIL) 500 mg capsule; Take 1 capsule (500 mg total) by mouth daily., Starting Estela 01/24/2023, Normal #3 Depression and Anxiety She is not interested in medications for mood or sleep. Reviewed lifestyle changes as noted above including trial of caffeine reduction to help with anxiety and improve sleep. Recommend to continue with regular exercise with goal of 150 minutes or more per week. Discussed scheduling with Psychology to continue working on anxiety and non medication related waysto help shut the brain off at night to help with sleep. She may be more open to supplements and reviewed consideration of Magnesium at bedtime to help withsleep/anxiety. Consider light therapy as well for mood adjunct. Other orders - Family Medicine office visit (clinic) Nelly Aavlos M.D. 01/24/2023 Documentation Stained Glass Glazier Caridad Wiley contributed to note content for Nelly Avalos M.D. documented in this encounter Plan of Treatment Not on file documented as of this encounter Visit Diagnoses Diagnosis General Medical Examination Adult- Primary Acne Depression documented in this encounter Additional Health Concerns Assessment Noted Time PHQ-9 Depression Total Score: 18 023 7:06 PM CDT documented as of this encounter Care Teams Asphalt Tamping Machine Operator Relationship Specialty Start Date End Date Nelly Avalos M.D. [id number] [phone] PCP - General Family Medicine 11/15/20 documented as of this encounter
--- OUTSIDE RECORDS SUMMARY | 2023-05-30 12:52 | XMS_ITS | Encounter Summary ---
Author Name Unknown Organization [facility] Address [address] [place] [address] Care Team Providers Care Punch Press Feeder Name Role Phone Nelly Avalos M.D. Primary Care Provider [phone] Reason for Visit * Reason Comments Med Refill Encounter Details Date Type Department Care Team (Late st Contact Info) Description 12/24/2022 Refill Department of Family Medicine, [facility], in [address] [phone] Nakul Leal M.D., Ph.D. [address] [place] [phone] Med Refill Social History Tobacco Use Types Packs/Day Years [...] Never 05/06/2022 How often do you attend rastafari or sikh serv ices? Never 05/06/2022 Do you belong to any clubs o r organizations such as rastafari groups, unions, fraternal or athletic [...] Answer Date Recorded PHQ-2 Score 6 05/10/2022 [facility] Occupat ional Health - Occupational Stress [...] place to sleep or slept in a care home (including now)? No 05/06/2022 Depression Answer Date [...] documented as of this encounter Miscellaneous Notes * Telephone Encounter - Nelly Avalos M.D. - 12/24/2022 12:57 PM CDT Prescription approved. documented in this encounter Plan of Treatment Not on file documented as of this encounter Visit Diagnoses Diagnosis Acne documented in this encounter Additional Health Concerns Assessment Noted Time PHQ-9 Depression Total Score: 26 022 3:12 PM SOLAR FIELD SERVICE TECHNICIAN documented as of this encounter Care Teams Punch Press Feeder Relationship Specialty Start Date End Date Nelly Avalos M.D. [address] [place] [phone] PCP - General Family Medicine 11/15/20 documented as of this encounter
--- OUTSIDE RECORDS SUMMARY | 2023-05-30 12:52 | XMS_ITS | Referral Summary ---
Author Name Unknown Organization [facility] Address [address] [place] [address] Care Team Providers Care Sports Book Writer Name Role Phone Nelly Avalos M.D. Primary Care Provider Source Comments Patient records contain information from all sites at [facility]. For routine questions regarding patient records, call [phone] during business hours, M-F 8:00 AM - 5:00 PM Central Time. Record requests for emergency care only can be directed to [phone] at any time.[facility] Allergies No known active allergies Medications Medication [...] quad (FLUZONE/FLUARIX) (6 months and older)(PF) 02/20/2022,02/22/2021,06/22/2020,2017,03/20/2017 Social History Tobacco Use Types Packs/Day Years [...] How often do you attend sikhism or judaism serv ices? Never 05/06/2022 Do you belong [...] Answer Date Recorded PHQ-2 Score 3 01/23/2023 [facility] - Occupational Stress Questionnaire Answer Date [...] place to sleep or slept in a longterm (including now)? No 05/06/2022 Depression Answer Date [...] Comments Blood Pressure 104/69 05/10/2022 1:14 PM ATTORNEY LAW CLERK Pulse 92 05/10/2022 1:14 PM ATTORNEY LAW CLERK Temperature 36.4 ??C (97.5 ??F) 01/24/2023 12:43 PM C DT Respiratory Rate 18 02/01/2021 1:32 PM CDT Oxygen Saturation 98% 01/24/2023 12:43 PM CDT Inhaled Oxygen Concentration - - Weight 75 kg (165 lb 5.5 oz) 01/24/2023 12:43 PM CDT Height 174 cm (5' 8.5) 01/24/2023 12:43 PM CDT Body Mass Index 24.77 01/24/2023 12:43 PM CDT Plan of Treatment Not on file Care Teams Sports Book Writer Relationship Specialty Start Date End Date Nelly Avalos M.D. [address] [place] [phone] PCP - General Family Medicine 11/15/20
--- OUTSIDE RECORDS SUMMARY | 2023-05-30 12:52 | XMS_ITS ---
Author Name Unknown Organization [facility] Address [address] [place] [address] Care Team Providers Care Seed Production Field Supervisor Name Role Phone Unavailable Unavailable Unavailable Surgery Details Not on file Complications Check Surgery Details section. Procedure Estimated Blood Loss Check Surgery Details section. Procedure Findings Check Surgery Details section. Procedure Specimens Taken Check Surgery Details section.
--- OUTSIDE RECORDS SUMMARY | 2023-05-30 12:53 | XMS_ITS | Encounter Summary ---
Author Name Unknown Organization [facility] Address [address] [place] [address] Care Team Providers Care Turn Out Name Role Phone Nelly Avalos M.D. Primary Care Provider Encounter Details Date Type Department Care Team (Late st Contact Info) Description 12/18/2022 Orders Only Department of Family Medicine, [facility], in [address] [phone] Nelly Avalos M.D. [address] [place] [phone] Fatigue (Primary Dx); Lightheadedness; Polycystic Ovary Syndrome; Screening Examination Diabetes Mellitus Social History Tobacco Use Types Packs/Day Years [...] Never 05/06/2022 How often do you attend restoration or tenriism serv ices? Never 05/06/2022 Do you belong to any clubs o r organizations such as restoration groups, unions, fraternal or athletic groups, or [...] Answer Date Recorded PHQ-2 Score 6 05/10/2022 [facility] Occupat ional Health - Occupational Stress [...] place to sleep or slept in a skilled nursing (including now)? No 05/06/2022 Depression Answer Date [...] on file documented as of this encounter Results * (ABNORMAL) Iron and Total Iron-Binding Capacity [...] CDT Nelly Avalos M.D. LAB BLOOD ADD-ON [facility] [address] [place] [id number], [facility] in [address] [phone] * Ferritin (12/20/2022 12:44 PM CDT) Pathologist [facility] Ferritin, S 64 6 - 175 mcg/L 12/20/2022 7:57 PM CDT [facility] Comment: Biotin has been identified by the credit administration manager as a potential interfering substance. Higher concentrations of biotin may be found in multivitamins, hair/nail supplements, and workout supplements. If the result does not match clinical observations, repeat testing after patient refrains from the use of supplements for at least 12 hours. Blood (Blood, Venous) 12/20/2022 12:44 PM CDT 12/20/2022 6:47 PM CDT Nelly Avalos M.D. LAB BLOOD ADD-ON [facility] [address] [place] [address], [facility] in [address] [phone] * Thyroid Function [place] (12/20/2022 12:44 PM CDT) [facility] TSH, Sensitive 1.8 0.3 - 4.2 mIU/L 12/20/2022 1:51 PM CDT CNFL Blood (Blood, Venous) 12/20/2022 12:44 PM CDT 12/20/2022 12:45 PM CDT Nelly Avalos M.D. LAB BLOOD ADD-ON [facility] [address] [place] [phone], [facility] CN[facility] [place] [address] * Comprehensive Metabolic Panel (12/20/2022 12:43 PM [...] CDT Nelly Avalos M.D. [place] [address], [place] [address] * Hemoglobin A1c (12/20/2022 12:43 PM CDT) Hemoglobin A1c, B 4.8 4.2 - 5.6 % 12/20/2022 1:03 PM CDT CNFL Blood (Blood, Venous) 12/20/2022 12:43 PM CDT 12/20/2022 12:45 PM CDT Nelly Avalos M.D. [place] [address], [place] [address] * CBC with Differential, Blood (12/20/2022 12:43 PM CDT) Hemoglobin 14.3 11.6 - 15.0 g/dL 12/20/2022 [...] CDT Nelly Avalos M.D. LAB BLOOD ADD-ON [facility] [address] [place], [place] [address], [facility] in [address] [phone] documented in this encounter Visit Diagnoses Diagnosis Fatigue- Primary Lightheadedness Polycystic Ovary Syndrome Screening Examination Diabetes Mellitus documented in this encounter Additional Health Concerns Assessment Noted Time PHQ-9 Depression Total Score: 26 12/29/2 022 3:12 PM BOARD MILL SUPERVISOR documented as of this encounter Care Teams Turn Out Relationship Specialty Start Date End Date Nelly Avalos M.D. [address] [phone] PCP - General Family Medicine 11/15/20 documented as of this encounter
--- OUTSIDE RECORDS SUMMARY | 2023-05-30 12:53 | XMS_ITS | Encounter Summary ---
Author Name Unknown Organization [facility] Address [address] [place] [address] Care Team Providers Care Furniture Assembler And Installer Name Role Phone Nelly Avalos M.D. Primary Care Provider Reason for Visit * Reason Onset Date Comments External Lab Entry 06/14/2022 Encounter Details Date Type Department Care Team (Latest Contact Info) Description 06/14/2022 Clinical Communication Department of Family Medicine, [facility], in [address] [phone] Nelly Avalos M.D. [address] [place] [phone] External Lab Entry Social History Tobacco Use Types Packs/Day Years [...] Never 05/06/2022 How often do you attend uatsdin or zoroastrianism serv ices? Never 05/06/2022 Do you belong to any clubs o r organizations such as uatsdin groups, unions, fraternal or athletic [...] Answer Date Recorded PHQ-2 Score 6 05/10/2022 [facility] Occupat ional Health - Occupational [...] place to sleep or slept in a [facility] (including now)? No 05/06/2022 Depression Answer Date [...] Procedure Name Priority Date/Time Associated Diagnosis Comments EXTM HOME SARS CORONAVIRUS-2 (COVID-19) ANTIGEN, V Routine 06/14/2022 7:30 AM SEAFOOD AND SERVICE MEAT MANAGER documented in this encounter Results * (ABNORMAL) EXT Home SARS Coronavirus-2 (COVID-19) Antigen, Varies (06/14/2022 7:30 AM SEAFOOD AND SERVICE MEAT MANAGER) EXT Home SARS-CoV-2 Antigen Presumptive Positive(A) Presumptive Negative HOME RESULTS Swab 06/14/2022 7:30 AM SEAFOOD AND SERVICE MEAT MANAGER Historical Provider LAB MICROBIOLOGY - G ENERAL ORDERABLES HOME RESULTS documented in this encounter Visit Diagnoses Not on filedocumented in this encounter Additional Health Concerns Infection Onset Date Last Indicated Resolved Time COVID19 06/14/2022 06/14/2022 07/04/2022 5:28 AM SEAFOOD AND SERVICE MEAT MANAGER Assessment Noted Time PHQ-9 Depression Total Score: 26 05/10/ 022 3:12 PM SEAFOOD AND SERVICE MEAT MANAGER documented as of this encounter Care Teams Furniture Assembler And Installer Relationship Specialty Start Date End Date Nelly Avalos M.D. [address] [phone] PCP - General Family Medicine 11/15/20 documented as of this encounter
--- NOTE | 2023-05-30 13:00 | CRLHL7_ITS ---
For Patients: As a result of the Century Cures Act, medical imaging exams and procedure reports are released immediately into your electronic medical record. You may view this report before your referring provider. If you have questions, please contact your health care provider. INDICATION: Evaluate anatomy. COMPARISON: 03/07/2023 TECHNIQUE: Real time tucker scale imaging of the fetus was performed as well as color Doppler analysis of the umbilical vessels. FINDINGS: Sonographic imaging demonstrates a single living intrauterine gestation. Fetus demonstrates a regular cardiac rate of 155 beats per minute. Fetus has a breech position. The placenta lies anteriorly without evidence of placenta previa. Edge of the placenta is located 3.6 cm from the internal cervical os. Amniotic fluid volume appears normal. Single deepest vertical pocket: 4.6 cm. The cervix is closed and measures 4.2 cm in length. The composite ultrasound gestational age is calculated at 20 weeks 3 days with an estimated sonographic due date of 10/14/2023. The estimated weight is 386 grams which lies at the 56th %. The following biometric measurements were obtained: Biparietal diameter: 4.6 cm/19 weeks 6 days 17th% Head circumference: 17.9 cm/20 weeks 2 days 24th% Abdominal circumference: 16.2 cm/21 weeks 2 days 63rd% Femur length: 3.4 cm/20 weeks 5 days 41st% The HC/AC ratio measures: 1.10 range (1.07-1.25) On anatomic survey, there is a normal appearance of the cerebral ventricles, cavum septi pellucidi, cisterna magna and cerebellum. The nose, lips, and facial profile appear normal. The cervical, thoracic and lumbar spine are well visualized and appear normal. There is a normal four-chamber heart view and the left and right ventricular outflow tracts appear normal. The diaphragm and stomach appear normal. The kidneys and bladder also appear normal. There is a normal three-vessel cord and cord insertion site. The four extremities appear normal. IMPRESSION: Normal OB ultrasound exam with concordance of clinical and sonographic dating. No intrinsic abnormalities noted on anatomic survey. Dictated by Adelfo Rao MD @ 05/30/2023 3:50:35 PM (Electronically Signed)
== END 2023-05-30 12:50 | disposition home or self-care (01) ==
LOC: US 12:50
PROVIDERS: Visit Provider Obstetrics & Gynecology
DX: Z34.92 Encounter for supervision of normal pregnancy, unspecified, second trimester (principal); Z3A.20 20 weeks gestation of pregnancy
CPT/HCPCS: 76805

== ENCOUNTER 2023-07-18 12:30 | Outpatient (CLI) | payer OTHER, SELFPAY | END 2023-07-18 12:31 | disposition home or self-care (01) | LOC: NFLDREF 07-22 06:04 | PROVIDERS: Visit Provider Obstetrics & Gynecology | DX: Z34.93 Encounter for supervision of normal pregnancy, unspecified, third trimester (principal) | CPT/HCPCS: 86592 ==

== ENCOUNTER 2023-09-11 13:54 | Outpatient (CLI) | payer OTHER, SELFPAY ==
--- OUTSIDE RECORDS SUMMARY | 2023-09-11 13:57 | XMS_ITS | Clinical Summary ---
Author Name Unknown Organization [facility] Address [address] [place] [address] Care Team Providers Care Mash Filter Press Operator Name Role Phone Nelly Avalos M.D. Primary Care Provider Source Comments Patient records contain information from all sites at [facility]. For routine questions regarding patient records, call [phone] during business hours, M-F 8:00 AM - 5:00 PM Central Time. Record requests for emergency care only can be directed to [phone] at any time.[facility] Allergies No known active allergies Medications Medication [...] MMR 01/05/2004 OPV 07/28/1997 SARS-COV-2 (COVID-19) - LEELA RYAN (J&J)(Discontinued) 12/13/2020 Td (Adult), adsorbed 01/05/2004 Tdap 11/01/2021,04/17/2017 [...] Never 05/06/2022 How often do you attend hoahaoism or buddhism serv ices? Never 05/06/2022 Do you belong to any clubs o r organizations such as hoahaoism groups, unions, fraternal or athletic groups, or [...] Answer Date Recorded PHQ-2 Score 3 01/23/2023 [facility] - Occupational [...] place to sleep or slept in a prison (including now)? No 05/06/2022 Depression Answer Date [...] Comments Blood Pressure 104/69 05/10/2022 1:14 PM VISUAL MERCHANDISE MANAGER Pulse 92 05/10/2022 1:14 PM VISUAL MERCHANDISE MANAGER Temperature 36.4 ??C (97.5 ??F) 01/24/2023 12:43 PM C DT Respiratory Rate 18 02/01/2021 1:32 PM CDT Oxygen Saturation 98% 01/24/2023 12:43 PM CDT Inhaled Oxygen Concentration - - Weight 75 kg (165 lb 5.5 oz) 01/24/2023 12:43 PM CDT Height 174 cm (5' 8.5) 01/24/2023 12:43 PM CDT Body Mass Index 24.77 01/24/2023 12:43 PM CDT Plan of Treatment Upcoming Encounters Date Type Department Care Team (Latest Contact Info) Description 11/12/2023 3:30 PM CDT Comprehensive Visit Department of Dermatology in [address] [address] August Villela M.D. [address] [place] [address] Discharge Disposition: Home or Self Care Health Maintenance Due Date Last Done Comments Hepatitis C Screening 1990 COVID-19 Vaccine ( season) 2023 12/13/2020 Depression Monitoring (PHQ-9) 05/25/2023 01/23/2023 Cervical Cancer Screening 06/22/20252020, 06/22/2020, 07/23/2017 DTaP,Tdap,and Td Vaccines (6 - Td or Tdap) 07/31/2033 08/01/2023, 11/01/2021, 04/17/2017, Additional history exists Hepatitis B Vaccines Completed 03/04/1996, 08/29/1995, 07/04/1995 HIV Screening Completed 11/01/2016 Influenza Vaccine Completed 02/13/2023, , 02/22/2021, Additional history exists HPV Vaccines Aged Out No longer eligi ble based on patient's age to complete this topic Pneumococcal vaccine (0-64 years) Aged Out No longer eligible based on patient's age to complete this topic Procedures Procedure Name Priority Date/Time Associated Diagnosis Comments THINPREP W/HPV CO-TEST SCREEN Routine 06/22/2020 12:39 PM VISUAL MERCHANDISE MANAGER Pap Smear Examination HIV-1/-2 AG AND AB SCREEN Routine 11/01/2016 10:04 AM CDT from Last 3 Months or Most Recently Relevant to Health Maintenance Results * ThinPrep w/HPV Co-Test Screen (06/22/2020 12:39 PM VISUAL MERCHANDISE MANAGER) 06/27/2020 4:05 PM VISUAL MERCHANDISE MANAGER ECLR Disclaimer High risk HPV testing, Real-Time Polymerase Chain Reaction (PCR) was performed on the liquid-based cytology specimen at [facility], [place], [place]. 06/27/2020 4:05 PM VISUAL MERCHANDISE MANAGER ECLR Report electronically signed by TEDDY Hargrove(ASCP) I verify that I have examined all relevant slides/materials for the specimen(s) and rendered or confirmed the diagnosis. 06/27/2020 4:05 PM VISUAL MERCHANDISE MANAGER ECLR Gross Description Received specimen in a ThinPrep vial. 06/27/2020 4:05 PM VISUAL MERCHANDISE MANAGER ECLR Pap Test Source Cervical/Endocervi brody 06/27/2020 4:05 PM VISUAL MERCHANDISE MANAGER ECLR Hormone Therapy/Contracep tives Oral Contraceptives 06/27/2020 4:05 PM VISUAL MERCHANDISE MANAGER ECLR Interpretation Cervical/Endocervi brody ??(ThinPrep): Satisfactory for Evaluation Negative for Intraepithelial Lesion or Malignancy ??High Risk HPV testing results are NEGATIVE. See specific genotype results below. HPV with Genotyping, PCR, ThinPrep: ??HPV High Risk Type 16, PCR: ??NEGATIVE ??HPV High Risk Type 18, PCR: ??NEGATIVE ??HPV other High Risk types, PCR: ??NEGATIVE Other High Risk HPV types include: 31, 33, 35, 39, 45, 51, 52, 56, 58, 59, 66, and 68. 06/27/2020 4:05 PM VISUAL MERCHANDISE MANAGER ECLR Varies (Cervix/Endocerv ix) 06/22/2020 12:39 PM VISUAL MERCHANDISE MANAGER 06/23/2020 8:12 AM VISUAL MERCHANDISE MANAGER Nelly Avalos M.D. LAB PAP PATHDX DONITA DIXON [facility] [address] [place] [address], [facility] ECLR [facility] in [address] [address] * HIV-1/-2 Ag and Ab Screen (11/01/2016 10:04 AM CDT) HIV-1/-2 Ag and Ab Screen, S Negative Negative [facility] Comment: Negative result does not rule out HIV infection. If ? acute HIV infection is suspected in a high-risk ? individual, submit plasma specimen for HIV-1 RNA ? quantification test (HIVDQ) and/or HIV-2 DNA/RNA ? test (FHV2Q). ? 11/01/2016 10:0 4 AM CDT 11/01/2016 10:04 AM CDT Caridad Gonzales APRN, CNM LAB MICROBIOLOG Y - BLOOD ORDERABLES [facility] [address] [place] [address], [facility] from Last 3 Months or Most Recently Relevant to Health Maintenance Care Teams Mash Filter Press Operator Relationship Specialty Start Date End Date Nelyl Avalos M.D. [address] [place] [phone] PCP - General Family Medicine 11/15/20
--- OUTSIDE RECORDS SUMMARY | 2023-09-11 13:57 | XMS_ITS ---
Author Name Unknown Organization [facility] Address [address] [place] [address] Care Team Providers Care Supervisor Aluminum Boat Assembly Name Role Phone Unavailable Unavailable Unavailable Surgery Details Not on file Complications Check Surgery Details section. Procedure Estimated Blood Loss Check Surgery Details section. Procedure Findings Check Surgery Details section. Procedure Specimens Taken Check Surgery Details section.
--- OUTSIDE RECORDS SUMMARY | 2023-09-11 13:57 | XMS_ITS | Referral Summary ---
Author Name Unknown Organization [facility] Address [address] [place] [address] Care Team Providers Care Pododermatologist Name Role Phone Nelly Avalos M.D. Primary Care Provider Source Comments Patient records contain information from all sites at [facility]. For routine questions regarding patient records, call [phone] during business hours, M-F 8:00 AM - 5:00 PM Central Time. Record requests for emergency care only can be directed to [phone] at any time.[facility] Allergies No known active allergies Medications Medication [...] Never 05/06/2022 How often do you attend zoroastrianism or taoism serv ices? Never 05/06/2022 Do you belong to any clubs o r organizations such as zoroastrianism groups, unions, fraternal or athletic [...] Answer Date Recorded PHQ-2 Score 3 01/23/2023 [facility] - Occupational Stress Questionnaire Answer Date [...] place to sleep or slept in a long-term (including now)? No 05/06/2022 Depression Answer Date [...] Comments Blood Pressure 104/69 05/10/2022 1:14 PM QUALITY CONTROL MANAGER Pulse 92 05/10/2022 1:14 PM QUALITY CONTROL MANAGER Temperature 36.4 ??C (97.5 ??F) 01/24/2023 [...] CDT Comprehensive Visit Department of Dermatology in [address] [phone] August Villela M.D. [address] [place] [address] Discharge Disposition: Home or Self Care Procedures Procedure Name Priority Date/Time Associated Diagnosis Comments THINPREP W/HPV CO-TEST SCREEN Routine 06/22/2020 12:39 PM QUALITY CONTROL MANAGER Pap Smear Examination HIV-1/-2 AG AND AB SCREEN Routine 11/01/2016 10:04 AM CDT from Last 3 Months or Most Recently Relevant to Health Maintenance Results * ThinPrep w/HPV Co-Test Screen (06/22/2020 12:39 PM QUALITY CONTROL MANAGER) 06/27/2020 4:05 PM QUALITY CONTROL MANAGER ECLR Disclaimer High risk HPV testing, Real-Time Polymerase Chain Reaction (PCR) was performed on the liquid-based cytology specimen at [place], [place]. 06/27/2020 4:05 PM QUALITY CONTROL MANAGER ECLR Report electronically signed by TEDDY Hargrove(ASCP) I verify that I have examined all relevant slides/materials for the specimen(s) and rendered or confirmed the diagnosis. 06/27/2020 4:05 PM QUALITY CONTROL MANAGER ECLR Gross Description Received specimen in a ThinPrep vial. 06/27/2020 4:05 PM QUALITY CONTROL MANAGER ECLR Pap Test Source Cervical/Endocervi brody 06/27/2020 4:05 PM QUALITY CONTROL MANAGER ECLR Hormone Therapy/Contracep tives Oral Contraceptives 06/27/2020 4:05 PM QUALITY CONTROL MANAGER ECLR Interpretation Cervical/Endocervi brody ??(ThinPrep): Satisfactory [...] 59, 66, and 68. 06/27/2020 4:05 PM QUALITY CONTROL MANAGER ECLR Varies (Cervix/Endocerv ix) 06/22/2020 12:39 PM QUALITY CONTROL MANAGER 06/23/2020 8:12 AM QUALITY CONTROL MANAGER Nelly Avalos M.D. LAB PAP PATHDX DONITA DIXON [facility] [address] [place] [address], [facility] ECLR [facility] in [place] [address] [place] [address] * HIV-1/-2 Ag and Ab Screen (11/01/2016 10:04 AM CDT) Pathologist [facility] HIV-1/-2 Ag and Ab Screen, S Negative Negative [facility] Comment: Negative result does not rule out HIV infection. If ? acute HIV infection is suspected in a high-risk ? individual, submit plasma specimen for HIV-1 RNA ? quantification test (HIVDQ) and/or HIV-2 DNA/RNA ? test (FHV2Q). ? 11/01/2016 10:0 4 AM CDT 11/01/2016 10:04 AM CDT Caridad Gonzales APRN, CNM LAB MICROBIOLOG Y - BLOOD ORDERABLES [facility] [address] [place] [address], [facility] from Last 3 Months or Most Recently Relevant to Health Maintenance Care Teams Pododermatologist Relationship Specialty Start Date End Date Nelly Avalos M.D. [address] [place] [phone] PCP - General Family Medicine 11/15/20
--- NOTE | 2023-09-11 14:00 | US_ITS ---
Patient: YOSVANY LINDER Facility:?[facility] Patient ID:?[id number] Site Patient ID:?[id number]. Site :?1990 Study:?US-OB Pelvis OB F/U-09/11/2023 2:48:07 PM Ordering Physician:?Amanda Bernstein Final Report: INDICATION: Check growth TECHNIQUE: Limited transabdominal two-dimensional tucker-scale ultrasound examination. COMPARISON: None FINDINGS: There is a living fetus in cephalic lie with gestational age of 35 weeks 4 days by LMP and 35 weeks 5 days by today`s measurements. EDC based on LMP 10/12/2023. BPD: 8.9 cm, 35 weeks 5 days Head circumference: 32.2 cm, 36 weeks 3 days Abdominal circumference: 30.5 cm, 34 weeks 3 days Femur length: 7.1 cm, 36 weeks 1 day The weight is estimated at 2633 grams, the 40th percentile. The heart rate is measured at 131 beats per minute and the rhythm appears regular. The amniotic fluid volume is within normal limits with single deepest pocket of 7.1 cm. The placenta is anterior and superior to the cervical os. There is no evidence of previa. The cervical length is normal at 4.4 cm. IMPRESSION: 1. Living fetus in cephalic lie with gestational age of 35 weeks 4 days by LMP and 35 weeks 5 days by today`s measurements. EDC based on LMP is 10/12/2023. 2. weight estimated at 2633 grams, the 40th percentile. Dictated by Roger Arenas MD @ 09/12/2023 7:31:33 AM Signed by:?Roger Arenas MD @09/12/2023 7:31:33 AM (Electronic Signature)
== END 2023-09-11 13:55 | disposition home or self-care (01) ==
LOC: US 13:55
PROVIDERS: Visit Provider Obstetrics & Gynecology
DX: Z34.93 Encounter for supervision of normal pregnancy, unspecified, third trimester (principal); Z3A.35 35 weeks gestation of pregnancy
CPT/HCPCS: 76816; 87081; 87653

== ENCOUNTER 2023-10-18 15:58 | Inpatient (IN) | payer OTHER, SELFPAY ==
--- OUTSIDE RECORDS SUMMARY | 2023-10-18 16:00 | XMS_ITS | Clinical Summary ---
Author Organization [facility] Address [address] [place] [address] Care Team Providers Care Search Marketing Specialist Name Role Phone Nelly Avalos M.D. Primary Care Provider Source Comments Patient records contain information from all sites at [facility]. For routine questions regarding patient records, call [phone] during business hours, M-F 8:00 AM - 5:00 PM Central Time. Record requests for emergency care only can be directed to [phone] at any time.[facility] Allergies No known active allergies Medications Medication [...] Never 05/06/2022 How often do you attend anabaptism or episcopal serv ices? Never 05/06/2022 Do you belong to any clubs o r organizations such as anabaptism groups, unions, fraternal or athletic groups, or [...] Answer Date Recorded PHQ-2 Score 3 01/23/2023 [facility] - Occupational [...] place to sleep or slept in a assisted (including now)? No 05/06/2022 Depression Answer Date [...] Comments Blood Pressure 104/69 05/10/2022 1:14 PM UTILIZATION ENGINEER Pulse 92 05/10/2022 1:14 PM UTILIZATION ENGINEER Temperature 36.4 ??C (97.5 ??F) 01/24/2023 12:43 [...] CDT Comprehensive Visit Department of Dermatology in [address] [address] August Villela M.D. [address] [place] [address] Discharge Disposition: Home or Self Care Health [...] W/HPV CO-TEST SCREEN Routine 06/22/2020 12:39 PM UTILIZATION ENGINEER Pap Smear Examination HIV-1/-2 AG AND AB SCREEN Routine 11/01/2016 10:04 AM CDT from Last 3 Months or Most Recently Relevant to Health Maintenance Results * ThinPrep w/HPV Co-Test Screen (06/22/2020 12:39 PM UTILIZATION ENGINEER) 06/27/2020 4:05 PM UTILIZATION ENGINEER ECLR Disclaimer High risk HPV testing, Real-Time Polymerase Chain Reaction (PCR) was performed on the liquid-based cytology specimen at [facility], [place], [place]. 06/27/2020 4:05 PM UTILIZATION ENGINEER ECLR Report electronically signed by TEDDY Hargrove(ASCP) I verify that I have examined all relevant slides/materials for the specimen(s) and rendered or confirmed the diagnosis. 06/27/2020 4:05 PM UTILIZATION ENGINEER ECLR Gross Description Received specimen in a ThinPrep vial. 06/27/2020 4:05 PM UTILIZATION ENGINEER ECLR Pap Test Source Cervical/Endocervi brody 06/27/2020 4:05 PM UTILIZATION ENGINEER ECLR Hormone Therapy/Contracep tives Oral Contraceptives 06/27/2020 4:05 PM UTILIZATION ENGINEER ECLR Interpretation Cervical/Endocervi brody ??(ThinPrep): Satisfactory for [...] 59, 66, and 68. 06/27/2020 4:05 PM UTILIZATION ENGINEER ECLR Varies (Cervix/Endocerv ix) 06/22/2020 12:39 PM UTILIZATION ENGINEER 06/23/2020 8:12 AM UTILIZATION ENGINEER Nelly Avalos M.D. LAB PAP PATHDX DONITA DIXON [facility] [address] [place] [address], [facility] ECLR [facility] in [address] [address] * HIV-1/-2 Ag and Ab Screen (11/01/2016 10:04 AM CDT) HIV-1/-2 Ag and Ab Screen, S Negative Negative [facility] Comment: Negative result does not rule out HIV infection. If ? acute HIV infection is suspected in a high-risk ? individual, submit plasma specimen for HIV-1 RNA ? quantification test (HIVDQ) and/or HIV-2 DNA/RNA ? test (FHV2Q). ? 11/01/2016 10:0 4 AM CDT 11/01/2016 10:04 AM CDT Caridad Gonzales APRN, CNM LAB MICROBIOLOG Y - BLOOD ORDERABLES [facility] [address] [place] [address], [facility] from Last 3 Months or Most Recently Relevant to Health Maintenance Care Teams Search Marketing Specialist Relationship Specialty Start Date End Date Nelly Avalos M.D. [id number] [place] [phone] PCP - General Family Medicine 11/15/20
--- OUTSIDE RECORDS SUMMARY | 2023-10-18 16:00 | XMS_ITS | Referral Summary ---
Author Organization [facility] Address [address] [place] [address] Care Team Providers Care Agile Tester Name Role Phone Nelly Avalos M.D. Primary Care Provider Source Comments Patient records contain information from all sites at [facility]. For routine questions regarding patient records, call [phone] during business hours, M-F 8:00 AM - 5:00 PM Central Time. Record requests for emergency care only can be directed to [phone] at any time.[facility] Allergies No known active allergies Medications Medication [...] Never 05/06/2022 How often do you attend roman catholic or yarsani serv ices? Never 05/06/2022 Do you belong to any clubs o r organizations such as roman catholic groups, unions, fraternal or athletic groups, [...] Answer Date Recorded PHQ-2 Score 3 01/23/2023 [facility] - Occupational Stress Questionnaire Answer Date [...] Comments Blood Pressure 104/69 05/10/2022 1:14 PM PROJECT CONTROL MANAGER Pulse 92 05/10/2022 1:14 PM PROJECT CONTROL MANAGER Temperature 36.4 ??C (97.5 ??F) [...] CDT Comprehensive Visit Department of Dermatology in [address] [phone] August Villela M.D. [address] [place] [address] Discharge Disposition: Home or Self Care Procedures Procedure Name Priority Date/Time Associated Diagnosis Comments THINPREP W/HPV CO-TEST SCREEN Routine 06/22/2020 12:39 PM PROJECT CONTROL MANAGER Pap Smear Examination HIV-1/-2 AG AND AB SCREEN Routine 11/01/2016 10:04 AM CDT from Last 3 Months or Most Recently Relevant to Health Maintenance Results * ThinPrep w/HPV Co-Test Screen (06/22/2020 12:39 PM PROJECT CONTROL MANAGER) 06/27/2020 4:05 PM PROJECT CONTROL MANAGER ECLR Disclaimer High risk HPV testing, Real-Time Polymerase Chain Reaction (PCR) was performed on the liquid-based cytology specimen at [place], [place]. 06/27/2020 4:05 PM PROJECT CONTROL MANAGER ECLR Report electronically signed by TEDDY Hargrove(ASCP) I verify that I have examined all relevant slides/materials for the specimen(s) and rendered or confirmed the diagnosis. 06/27/2020 4:05 PM PROJECT CONTROL MANAGER ECLR Gross Description Received specimen in a ThinPrep vial. 06/27/2020 4:05 PM PROJECT CONTROL MANAGER ECLR Pap Test Source Cervical/Endocervi brody 06/27/2020 4:05 PM PROJECT CONTROL MANAGER ECLR Hormone Therapy/Contracep tives Oral Contraceptives 06/27/2020 4:05 PM PROJECT CONTROL MANAGER ECLR Interpretation Cervical/Endocervi brody ??(ThinPrep): [...] 59, 66, and 68. 06/27/2020 4:05 PM PROJECT CONTROL MANAGER ECLR Varies (Cervix/Endocerv ix) 06/22/2020 12:39 PM PROJECT CONTROL MANAGER 06/23/2020 8:12 AM PROJECT CONTROL MANAGER Nelly Avalos M.D. LAB PAP PATHDX DONITA DIXON [facility] [address] [place] [address], [facility] ECLR [facility] in [place] [address] [place] [address] * HIV-1/-2 Ag and Ab Screen (11/01/2016 10:04 AM CDT) [facility] HIV-1/-2 Ag and Ab Screen, S Negative Negative [facility] Comment: Negative result does not rule out HIV infection. If ? acute HIV infection is suspected in a high-risk ? individual, submit plasma specimen for HIV-1 RNA ? quantification test (HIVDQ) and/or HIV-2 DNA/RNA ? test (FHV2Q). ? 11/01/2016 10:0 4 AM CDT 11/01/2016 10:04 AM CDT Caridad Gonzales APRN, CNM LAB MICROBIOLOG Y - BLOOD ORDERABLES [facility] [address] [place] [address], [facility] from Last 3 Months or Most Recently Relevant to Health Maintenance Care Teams Agile Tester Relationship Specialty Start Date End Date Nelly Avalos M.D. [id number] [place] [address] [place] [phone] PCP - General Family Medicine 11/15/20
--- OUTSIDE RECORDS SUMMARY | 2023-10-18 16:00 | XMS_ITS ---
Author Organization [facility] Address [address] [place] [address] Care Team Providers Care Appliances Sample Maker Name Role Phone Unavailable Unavailable Unavailable Surgery Details Not on file Complications Check Surgery Details section. Procedure Estimated Blood Loss Check Surgery Details section. Procedure Findings Check Surgery Details section. Procedure Specimens Taken Check Surgery Details section.
[2023-10-18 16:18] VITALS: BP 135/75; PULSE 95; RESP 16; TEMP 36.3; O2SAT 98
[2023-10-18 17:52] LABS: Basophils Absolute Auto 0.01 K/uL (0.00-0.30); Basophils Percent Auto 0.1 % (0.0-3.0); Eosinophils Percent Auto 0.9 % (0.0-7.0); Hematocrit 41.2 % (33.0-51.0); Hemoglobin* 13.9 gm/dL (12.0-16.0); Immature Granulocytes Abs Auto 0.07 K/uL (0.00-0.30); Immature Granulocytes Pct Auto 0.6 %; Lymphocytes Percent Auto 15.1 % (20-44); Mean Corpuscular HGB Conc 34 gm/dL (32-36); Mean Corpuscular Hemoglobin 33 pg (26-34); Mean Corpuscular Volume 99 fL (80-100); Monocytes Percent Auto 7.8 % (0.0-11.0); Neutrophils Percent Auto 75.5 % (42.0-72.0); Platelet Count* 246 K/uL (140-440); RDW Coefficient of Variation % 13.9 % (11.5-15.5); Red Blood Count 4.18 m/uL (4.00-5.20); White Blood Count* 10.79 K/uL (4.50-11.00)
[2023-10-18 17:55] LABS: Slide Review Reflex No
--- NOTE | 2023-10-18 19:03 | P.LDBA_ITS ---
Subjective History of Present Illness Time Seen by Provider: 19:03 Date Seen: 10/18/23 Narrative: Patient is being admitted to Labor and Delivery for scheduled IOL/TOLAC. She is a 33 year old at 40.6 weeks gestation. Her full history and physical was dictated by Dr. Bernstein on 09/25/23. Please see this for details. Active movement. Denies LOF, vaginal bleeding or abnormal vaginal discharge. Intermittent contractions. Specific Issues/Plans [id number] Spouse: Jonatan. Sons: Jim, Twin. Baby: Girl! H&P 09/25/23 1. History of , for bradycardia. 2. History of successful , desires repeat * consent signing: Consent given for her review 07/18/23 * Consent signed 07/18/2023. * Growth ultrasound: 09/11/2023: 40%ile 3. Mat21: Negative. Girl 4. Cystic acne * On amoxicillin 500 mg QD * On Clindamycin topical gel Flu shot: completed this fall Covid shot: declined Tdap: 08/01/23 OB - Problem Based A/P Additional Plan (1) Hx successful (vaginal after ), currently : Status: Acute (2) : Status: Acute Plan - Admission for labor induction - Cook catheter placed at 1845 with 60 mL for cervical and vaginal balloon. - Patient tolerated the cook catheter placement well without any issues. Wellbeing NST: Baseline of 155 beats per minute, moderate variability, positive accelerations, negative decelerations [place]: Q3-5 minutes OB Exam Physical Exam Vital signs: Temp Pulse Resp BP Pulse Ox 97.3 F L 95 16 135/75 98 10/18/23 16:18 10/18/23 16:18 10/18/23 16:18 10/18/23 16:18 10/18/23 16:18 Narrative: Physical exam: General: No acute distress Psych: Alert and oriented x3, full affect HEENT: Normocephalic, atraumatic Lungs: Unlabored breathing Neuro: No focal deficit. Mentating appropriately Abdomen: Gravid. Soft, nontender, no rebound or guarding. Pelvic exam: 06/11/. Moderate soft, posterior.
[2023-10-18 19:54] VITALS: BP 119/64; PULSE 85
[2023-10-18 19:55] VITALS: TEMP 37
[2023-10-18] MEDS: hydrOXYzine pamoate 25 MG CAPSULE 100 MG PO (21:47)
[2023-10-18] MEDS: MORPHINE 10 MG/ML inj IM (21:48)
[2023-10-18] MEDS: LACTATED RINGERS 1000 ML 1,000 ML 125 ML IV (23:20)
[2023-10-18 23:42] VITALS: BP 124/68; PULSE 88
[2023-10-18] MEDS: OXYTOCIN 30 unit/500 ML in NS 30 UNIT/500 ML BAG 300 UNIT IVPB (23:53)
[2023-10-18 23:58] VITALS: BP 132/69; PULSE 98
[2023-10-19] VITALS (15 sets, daily range): BP systolic 106–146; BP diastolic 59–77; PULSE 73–96; RESP 16–18; TEMP 36.4–36.9; O2SAT 96–99
[2023-10-19] MEDS: LIDOCAINE 1 % PF 30 ML INJECTION (00:05)
[2023-10-19] MEDS: MORPHINE 4 MG/ML INJ IVP (00:25)
--- NOTE | 2023-10-19 00:28 | W.PM.OBVAGDE ---
OB Procedure Vag Delivery Mother Details Mother Details: The patient is a 33 year-old, 3, now Para 2, admitted on 10/18/23 at 41 0/7 gestation. : 3 Para: 3 Weeks Gestation: 41 Admission Date: 10/19/23 Additional Details Amniotic Membrane Status: SROM Amniotic Membrane Rupture Date: 10/19/23 Amniotic Membrane Rupture Time: 23:46 Amniotic Membrane Fluid Description: Meconium Stained Analgesia/Anesthesia Type: None Waterbirth: No Pitcoin: Yes (AMTSL) Intrapartal Events: None Induction Method: Intracervical balloon catheter Heart: heart tones during second stage were reassuring as patient delivered preciptious. Delivery Details Delivery Date: 10/19/23 Delivery Time: 23:47 Route of delivery: Gender: Female Infant Viability: Alive; Heart Rate Present Delivery Details: Patient was admitted for induction of labor for post-dates. Her IOL was started with cook catheter where she then went into spontaneous labor and delivered precipitous. CNM called to room due to patient spontaneous pushing and provider on her way. SROM of clear fluid just before delivery. Patient was complete at 2346 and pushing at 2346. of a viable female at 2347 in semi-fowlers on the bed. Vertex delivered OA. Nuchal cord easily reduced after delivery, no shoulder. Body delivered easily and without incident. Infant passed to mothers abdomen with a vigorous cry. Cord was clamped and cut at > 5 minutes. APGARS were 9 at one minute and 9 at five minutes respectively. Mouth was bulb suctioned. Intact placenta with a 3 vessel cord delivered spontaneously at 2357. Fundus firm. Dr. Peace arrived at time of laceration assessment and assumed care for repair 1st degree and right gregorio-urethral identified and repaired in typical fashion QBL 100 cc. Mother and baby stable; mother plans to breastfeed. weight pending. 1 Minute Interval Total Score: 9 5 Minute Interval Total Score: 9 Additional Details Shoulder Dystocia: No Placenta Delivery Time: 23:57 Placental Delivery Description: Spontaneous Delivery repair: Vicryl Procedure Done: Global Blood Loss: 100 Laceration: Perineal - 1st Degree Blood Loss Measurement Type: QBL Bakri Used: No Sponge/Need Count Correct: Yes Cord Vessel Description: 3 Vessels, Nuchal Cord, Loose and Reduced Event Summary Status: Mother and were stable after delivery. Disposition: floor
[2023-10-19] MEDS: IBUPROFEN 600 MG TABLET PO ×4 (03:04→20:54)
[2023-10-19] MEDS: DOCUSATE SODIUM 100 MG CAPSULE PO (08:48)
--- NOTE | 2023-10-19 09:57 | P.OBPN_ITS ---
OB - PN:Subj Subjective Time Seen by Provider: 08:30 Date Seen: 10/19/23 Patient comments OB post-: no complaints status: and doing well Narrative: Yeny is a 33-year-old seen on day 1 from a successful , precipitous delivery. was complicated only by history of delivery. Yeny presented last night for cervical ripening, subsequently had precipitous delivery following expulsion of her Cook. Yeny notes she is feeling well this morning. She is surprised by her labor course but overall feels it went well. She notes some uterine cramping with breast feeding, otherwise pain is well controlled. Lochia is moderate. Ambulates without dizziness or lightheadedness. Tolerating p.o. intake without nausea or vomiting. She has been able to void spontaneously. Passing flatus. Baby Christina is doing very well and the family is adjusting appropriately. OB - PN: Obj Exam Physical Exam: Vital signs: Temp Pulse Resp BP Pulse Ox O2 Del Method 98.5 F 83 16 106/66 98 Room Air 10/19/23 08:35 10/19/23 08:35 10/19/23 08:35 10/19/23 08:35 10/19/23 08:35 10/19/23 08:35 Narrative: Vital signs reviewed and within normal limits. General: Alert and oriented, no acute distress Psych: Appropriate mood and affect Abdomen: Soft, nondistended and non-tender. Fundus at umbilicus, nontender. Lower extremities: Trace bilateral edema. No calf tenderness, erythema or swelling. OB - PN: Obj Data Labs Labs: Laboratory Results - last 24 hr 10/18/23 17:30 WBC 10.79 RBC 4.18 Hgb 13.9 Hct 41.2 MCV 99 MCH 33 MCHC 34 RDW Coeff of Ron 13.9 Plt Count 246 Neut % (Auto) 75.5 H Lymph % (Auto) 15.1 L [place] % (Auto) 7.8 Eos % (Auto) 0.9 Baso % (Auto) 0.1 Neut # (Auto) 8.10 H Lymph # (Auto) 1.60 [place] # (Auto) 0.80 Eos # (Auto) 0.10 Baso # (Auto) 0.01 Abs Immat Gran (auto) 0.07 Imm/Tot Granulo (auto) 0.6 Blood Type B Positive Antibody Screen NEGATIVE OB - PN: A/P Delivery Assessment and Plan (1) Hx successful (vaginal after ), currently : Status: Acute (2) : Status: Acute (3) Elevated blood pressure reading without diagnosis of hypertension: Status: Acute Plan Ms. Saleem is a 33yo s/p precipitous just before midnight, uncomplicated. was only complicated by her prior . Yeny is meeting all appropriate post milestones. Pain is well controlled, lochia is moderate. She has not had much to eat yet, but is tolerating p.o. liquids without nausea/vomiting. successfully. No mood concerns. Of note, she had several mild range blood pressures but this was in the immediate worse after her unmedicated delivery. These are not by 4 hours, that she does not meet criteria for hypertensive disorder at this time. Plan to monitor, plan to obtain HELLP labs if she were to have another mild range blood pressure. No headache, vision changes right quadrant pain. Plan routine cares with likely dismissal to home tomorrow.
[2023-10-19] MEDS: ACETAMINOPHEN 500 MG TABLET 1000 MG PO ×2 (11:32→18:44)
[2023-10-19] MEDS: LANOLIN CREAM 1 APPLIC TOPICAL (14:43)
[2023-10-20 00:30] VITALS: BP 114/67; PULSE 77; RESP 18; TEMP 36.7; O2SAT 98
[2023-10-20] MEDS: IBUPROFEN 600 MG TABLET PO (03:20)
[2023-10-20 06:54] LABS: Hemoglobin* 11.9 gm/dL (12.0-16.0)
[2023-10-20 07:35] VITALS: BP 104/66; PULSE 82; RESP 16; TEMP 36.7; O2SAT 98
[2023-10-20] MEDS: ACETAMINOPHEN 500 MG TABLET 1000 MG PO (07:51)
[2023-10-20] MEDS: DOCUSATE SODIUM 100 MG CAPSULE PO (07:51)
--- NOTE | 2023-10-20 08:33 | P.DS_ITS ---
DS: Providers Provider Time Seen by Provider: 08:34 Date Seen: 10/20/23 Date of admission: 10/18/23 15:58 Primary care physician: Not a Local Provider Admitting Clinician: Lizabeth Peace MD Attending Physician on discharge: Humberto Bernstein MD Exam Narrative: Exam Narrative: Vital signs reviewed and within normal limits. General: Alert and oriented, no acute distress Psych: Appropriate mood and affect Abdomen: Soft, nondistended and non-tender. Fundus at 2 below umbilicus, nontender. Lower extremities: Trace bilateral edema. No calf tenderness, erythema or swelling. Const: Vital Signs, click to edit/add: Vital Signs - 24 hr 10/19/23 08:35 10/19/23 11:39 10/19/23 16:00 Temperature 98.5 F 98.4 F 98.2 F Pulse Rate [Pulse Oximeter] 83 73 75 Respiratory Rate 16 16 16 Blood Pressure [Le ft Arm] 106/66 113/71 116/77 Pulse Oximetry 98 99 99 Oxygen Delivery Me thod Room Air Room Air Room Air 10/19/23 20:45 10/20/23 00:30 10/20/23 07:35 Temperature 98.2 F 98.0 F 98.1 F Pulse Rate [Pulse Oximeter] 77 77 82 Respiratory Rate 16 18 16 Blood Pressure [Le ft Arm] 122/71 114/67 104/66 Pulse Oximetry 96 98 98 Oxygen Delivery Me thod Room Air Room Air Room Air OB - DS: Summary Hospital Course Hospital Course: The patient is a 33 year old G 3 P 3 at 40 weeks 6 daysgestation that was admitted to the Center on 10/18/23 for induction of labor for late term gestation as a trial of labor after . She had an uncomplicated precipitous delivery. She delivered a viable female infant. She is breast feeding. the patient has done well. Yeny is feeling well this morning, she has no acute concerns. She notes minimal ongoing abdominal or pelvic pain. Lochia is minimal. She is tolerating p.o. intake without nausea or vomiting. Voids without difficulty. Passing gas, no bowel movement yet. Ambulates without dizziness or lightheadedness. No chest pain, shortness of breath or lower extremity concerns. She is breast- feeding without difficulty. No mood concerns. Infant Gender: Female Time Spent with Patient Time attestation: Total time spent providing and/or coordinating discharge services: Time spent: Less than 30 minutes Discharge Plan Discharge Disposition: Home, Self-Care Date of Admission: 10/18/23 15:58 Primary Care Provider: Provider,Not a Local Condition: Stable Anticipated Discharge Date/Time: 10/20/23 08:35 Discharge Medications: Continued prenat.vits,brody,[id number] Tablet 1 tab PO QDAY Discontinued amoxicillin 500 mg tablet 500 mg PO QDAY Discharge Orders: Discharge Order (Routine); Ordered 10/20/23 Ordered By: Amanda Bernstein Additional Instructions: Discharge instructions were reviewed with the patient including signs and symptoms of infection and home going medications Nothing vaginally for 6 weeks: no tampons or intercourse Do not drive while taking narcotic pain medication(s) Off Work or School for 8 weeks Symptoms to report to doctor: * Bleeding that saturates more than one pad per hour * Passing clots larger than the size of a golf ball * Pain not relieved by prescribed medication * Fever above 100.4 degrees Fahrenheit * A foul vaginal odor * Difficulty in emotions, mood, and functions * Thoughts of hurting yourself and/or * Painful, reddened area in your breast * Any drainage, redness, or tenderness in your IV/epidural site * Severe headache that doesn't improve after taking medications * Changes in vision, including temporary loss of vision, blurred vision, and/or light sensitivity * Upper abdominal pain (usually under ribs on the right side) * Decrease in urination or painful, frequent urinating * Chest pain * Shortness of breath * Tenderness or pain with redness and/swelling in the calf(s) of your leg Optional 2-week visit: discuss feeding concerns, review control options and screen for anxiety/depression. 6-week visit for an annual exam. consultation services are available to all mothers and babies for the first year after delivery.? To make an appointment, please call [phone]. Activity Level: Activity as Tolerated Discharge Diet: Regular Follow Up Appointments: Provider,Not a Local [Primary Care Provider] - Forms: logtrust Info Instructions
[2023-10-20 18:59] LABS: Rapid Plasma Reagin (RPR) Non Reactive (Non Reactive)
== END 2023-10-20 12:30 | disposition home or self-care (01) | DRG 807 ==
PROVIDERS: Admitting Provider Obstetrics & Gynecology; Visit Provider Obstetrics & Gynecology
DX: O48.0 Post-term pregnancy (principal); Z37.0 Single live birth; O34.219 Maternal care for unspecified type scar from previous cesarean delivery; O70.0 First degree perineal laceration during delivery; O77.0 Labor and delivery complicated by meconium in amniotic fluid; Z3A.41 41 weeks gestation of pregnancy
CPT/HCPCS: 36415; 59200; 85018; 85025; 86592; 86850; 86900; 86901; A9270; C1726; J2001; J2270; J2371; J7120

== ENCOUNTER 2024-03-20 11:05 | Outpatient (CLI) | payer OTHER, SELFPAY ==
--- OUTSIDE RECORDS SUMMARY | 2024-03-20 11:07 | XMS_ITS | Clinical Summary ---
Author Organization [facility] Address [address] [place] [address] Care Team Providers Care Refuse Collector Name Role Phone Nelly Avalos M.D. Primary Care Provider [phone] Source Comments Patient records contain information from all sites at [facility]. For routine questions regarding patient records, call [phone] during business hours, M-F 8:00 AM - 5:00 PM Central Time. Record requests for emergency care only can be directed to [phone] at any time.[facility] Allergies No known active allergies Medications * This document contains information received from the source organization and may not represent a complete record from that organization. amoxicillin (AMOXIL) 500 mg capsuleIndicati ons:Acne Take 1 capsule (500 mg total) by mouth daily. 90 capsule 3 01/24/2023 Active Active Problems Problem Noted Date Diagnosed Date Depression 05/10/2022 Acne 02/27/2019 Polycystic Ovary Syndrome 09/24/2016 Resolved Problems Problem Noted Date Diagnosed Date Resolved Date Health Maintenance Examination Adult 02/27/2019 02/12/2021 Overview (02/27/2019): - Pap: 07/2017 - normal, due 07/2020 - BMI: 24 - Vaccinations: Premature Rupture Membrane 05/06/2017 1 Pyelonephritis Acute 07/10/2016 019 Immunizations Name Administration Dates Next Due DTaP (Infanrix, Tripedia) 09/02/1996 H1N1 All Forms 04/27/2009 HepB, Unspecified 03/04/1996,08/29/1995,07/04/18 96 Influenza, Unspecified 02/25/2019 MMR 01/05/2004 OPV 07/28/1997 SARS-COV-2 (COVID-19) - LEELA RYAN (J&J)(Discontinued) 12/13/2020 Td (Adult), adsorbed 01/05/2004 Tdap 11/01/2021,04/17/2017 influenza trivalent vaccine (6 months and older)(PF) 05/01/2015 influenza vaccine quad (FLUZONE/FLUARIX) (6 months and older)(PF) 02/20/2022,02/22/2021,06/22/2020,2017,03/20/2017 Family History Medical History Relation Name Comments Breast cancer Maternal Grandmother ? Alcohol abuse Mother Lyla Anxiety disorder Mother Lyla Depression Mother Lyla Hyperlipidemia Mother Lyla Hypertension Mother Lyla Obesity Mother Lyla Suicide Attempts Paternal Grandfather Wind Seiz[place] Son Jim Relation Name Status Comments Maternal Grandmother ? Mother Lyla Paternal Grandfather [place] Son Jim Social History Tobacco Use Types [...] Never 05/06/2022 How often do you attend muslim or zoroastrian serv ices? Never 05/06/2022 Do you belong to any clubs o r organizations such as muslim groups, unions, fraternal or athletic groups, or [...] Answer Date Recorded PHQ-2 Score 3 01/23/2023 [facility] - Occupational Stress [...] degree: occupational, technical, or vocational program 05/06/2022 Comments Unknown Sex and Gender Information Value Date Recorded Sex Assigned at Female 02/27/2019 11:22 AM CDT Legal Sex Female 9:02 PM COUPON AND BOND COLLECTION CLERK Gender Identity Female 02/27/2019 11:22 AM CDT Sexual Orientation Straight 02/02/2021 11 :50 AM CDT Last Filed Vital Signs Vital Sign Reading Time Taken Comments Blood Pressure 104/69 05/10/2022 1:14 PM COUPON AND BOND COLLECTION CLERK Pulse 92 05/10/2022 1:14 PM COUPON AND BOND COLLECTION CLERK Temperature 36.4 ??C (97.5 ??F) 01/24/2023 [...] Last Done Comments Hepatitis C Screening 1991 IPV Vaccines (2 of 3 - 4-dose series) 08/25/1997 07/28/1997 Depression Monitoring (PHQ-9 for quality tracking) 05/13/2023 Depression Monitoring (PHQ-9) 05/25/2023 01/23/2023 COVID-19 Vaccine ( season) 2024 12/13/2020 Influenza Vaccine (#1) 2024 , 02/20/2022, 02/22/2021, Additional history exists Cervical/Vaginal Cancer Screening 06/22/2025 06/22/2020, 06/22/2020, 07/23/2017 DTaP,Tdap,and Td Vaccines (6 - Td or Tdap) 07/31/2033 08/01/2023, 11/01/2021, 04/17/2017, Additional history exists Hepatitis B Vaccines Completed 03/04/1996, 08/29/1995, 07/04/1995 HIV Screening Completed 11/01/2016 HPV Vaccines Aged Out No longer eligi ble based on patient's age to complete this topic Pneumococcal vaccine (0-64 years) Aged Out No longer eligible based on patient's age to complete this topic Procedures Procedure Name Priority Date/Time Associated Diagnosis Comments THINPREP W/HPV CO-TEST SCREEN Routine 06/22/2020 12:39 PM COUPON AND BOND COLLECTION CLERK Pap Smear Examination HIV-1/-2 AG AND AB SCREEN Routine 11/01/2016 10:04 AM CDT from Last 3 Months or Most Recently Relevant to Health Maintenance Results * ThinPrep w/HPV Co-Test Screen (06/22/2020 12:39 PM COUPON AND BOND COLLECTION CLERK) 06/27/2020 4:05 PM COUPON AND BOND COLLECTION CLERK ECLR Disclaimer High risk HPV testing, Real-Time Polymerase Chain Reaction (PCR) was performed on the liquid-based cytology specimen at [facility], [place], [place]. 06/27/2020 4:05 PM COUPON AND BOND COLLECTION CLERK ECLR Report electronically signed by TEDDY Hargrove(ASCP) I verify that I have examined all relevant slides/materials for the specimen(s) and rendered or confirmed the diagnosis. 06/27/2020 4:05 PM COUPON AND BOND COLLECTION CLERK ECLR Gross Description Received specimen in a ThinPrep vial. 06/27/2020 4:05 PM COUPON AND BOND COLLECTION CLERK ECLR Pap Test Source Cervical/Endocervi brody 06/27/2020 4:05 PM COUPON AND BOND COLLECTION CLERK ECLR Hormone Therapy/Contracep tives Oral Contraceptives 06/27/2020 4:05 PM COUPON AND BOND COLLECTION CLERK ECLR Interpretation Cervical/Endocervi brody ??(ThinPrep): Satisfactory for [...] 59, 66, and 68. 06/27/2020 4:05 PM COUPON AND BOND COLLECTION CLERK ECLR Varies (Cervix/Endocerv ix) 06/22/2020 12:39 PM COUPON AND BOND COLLECTION CLERK 06/23/2020 8:12 AM COUPON AND BOND COLLECTION CLERK us Nelly Avalos M.D. LAB PAP PATHDX ORDERABLES F inal Result [facility] [address] [place] [id number], [facility] [[email or web address]] ECLR [facility] in [address] [address] * HIV-1/-2 Ag and Ab Screen (11/01/2016 10:04 AM CDT) HIV-1/-2 Ag and Ab Screen, S Negative Negative [facility] Comment: Negative result does not rule out HIV infection. If ? acute HIV infection is suspected in a high-risk ? individual, submit plasma specimen for HIV-1 RNA ? quantification test (HIVDQ) and/or HIV-2 DNA/RNA ? test (FHV2Q). ? 11/01/2016 10:0 4 AM CDT 11/01/2016 10:04 AM CDT Caridad Gonzales APRN, CNM LAB MICROBIOLOGY - BLOO D ORDERABLES Final Result [facility] [address] [place] [phone], [facility] [[email or web address]] from Last 3 Months or Most Recently Relevant to Health Maintenance Insurance [employer] Care Teams Refuse Collector Relationship Specialty Start Date End Date Nelly Avalos M.D. [id number] [id number] PCP - General Family Medicine 11/15/20
--- OUTSIDE RECORDS SUMMARY | 2024-03-20 11:07 | XMS_ITS | Referral Summary ---
Author Organization [facility] Address [address] [place] [address] Care Team Providers Care Laborer Cement Gun Placing Name Role Phone Nelly Avalos M.D. Primary Care Provider [phone] Source Comments Patient records contain information from all sites at [facility]. For routine questions regarding patient records, call [phone] during business hours, M-F 8:00 AM - 5:00 PM Central Time. Record requests for emergency care only can be directed to [phone] at any time.[facility] Allergies No known active allergies Medications [...] Never 05/06/2022 How often do you attend congregation or religion serv ices? Never 05/06/2022 Do you belong to any clubs o r organizations such as congregation groups, unions, fraternal or athletic [...] Answer Date Recorded PHQ-2 Score 3 01/23/2023 [facility] - Occupational Stress Questionnaire Answer Date Recorded [...] place to sleep or slept in a correction (including now)? No 05/06/2022 Depression Answer Date [...] AM CDT Legal Sex Female 9:02 PM FILM MAKER Gender Identity Female 02/27/2019 11:22 AM CDT Sexual Orientation Straight 02/02/2021 11 :50 AM CDT Last Filed Vital Signs Vital Sign Reading Time Taken Comments Blood Pressure 104/69 05/10/2022 1:14 PM FILM MAKER Pulse 92 05/10/2022 1:14 PM FILM MAKER Temperature 36.4 ??C (97.5 ??F) 01/24/2023 12:43 PM C DT Respiratory Rate 18 02/01/2021 1:32 PM CDT Oxygen Saturation 98% 01/24/2023 12:43 PM CDT Inhaled Oxygen Concentration - - Weight 75 kg (165 lb 5.5 oz) 01/24/2023 12:43 PM CDT Height 174 cm (5' 8.5) 01/24/2023 12:43 PM CDT Body Mass Index 24.77 01/24/2023 12:43 PM CDT Plan of Treatment Not on file Procedures Procedure Name Priority Date/Time Associated Diagnosis Comments THINPREP W/HPV CO-TEST SCREEN Routine 06/22/2020 12:39 PM FILM MAKER Pap Smear Examination HIV-1/-2 AG AND AB SCREEN Routine 11/01/2016 10:04 AM CDT from Last 3 Months or Most Recently Relevant to Health Maintenance Results * ThinPrep w/HPV Co-Test Screen (06/22/2020 12:39 PM FILM MAKER) 06/27/2020 4:05 PM FILM MAKER ECLR Disclaimer High risk HPV testing, Real-Time Polymerase Chain Reaction (PCR) was performed on the liquid-based cytology specimen at [place], [place]. 06/27/2020 4:05 PM FILM MAKER ECLR Report electronically signed by TEDDY Hargrove(ASCP) I verify that I have examined all relevant slides/materials for the specimen(s) and rendered or confirmed the diagnosis. 06/27/2020 4:05 PM FILM MAKER ECLR Gross Description Received specimen in a ThinPrep vial. 06/27/2020 4:05 PM FILM MAKER ECLR Pap Test Source Cervical/Endocervi brody 06/27/2020 4:05 PM FILM MAKER ECLR Hormone Therapy/Contracep tives Oral Contraceptives 06/27/2020 4:05 PM FILM MAKER ECLR Interpretation Cervical/Endocervi brody ??(ThinPrep): Satisfactory for [...] 59, 66, and 68. 06/27/2020 4:05 PM FILM MAKER ECLR Varies (Cervix/Endocerv ix) 06/22/2020 12:39 PM FILM MAKER 06/23/2020 8:12 AM FILM MAKER us Nelly Avalos M.D. LAB PAP PATHDX ORDERABLES F inal Result [facility] [address] [place] [id number], [facility] ECLR [facility] in [place] [address] [place] [id number] * HIV-1/-2 Ag and Ab Screen (11/01/2016 10:04 AM CDT) [facility] HIV-1/-2 Ag and Ab Screen, S Negative Negative [facility] Comment: Negative result does not rule out HIV infection. If ? acute HIV infection is suspected in a high-risk ? individual, submit plasma specimen for HIV-1 RNA ? quantification test (HIVDQ) and/or HIV-2 DNA/RNA ? test (FHV2Q). ? 11/01/2016 10:0 4 AM CDT 11/01/2016 10:04 AM CDT us Caridad Gonzales APRN, CNM LAB MICROBIOLOGY - BLOO D ORDERABLES Final Result [facility] [address] [place] [address], [facility] from Last 3 Months or Most Recently Relevant to Health Maintenance Insurance [employer] Care Teams Laborer Cement Gun Placing Relationship Specialty Start Date End Date Nelly Avalos M.D. [id number] [phone] PCP - General Family Medicine 11/15/20
--- OUTSIDE RECORDS SUMMARY | 2024-03-20 11:07 | XMS_ITS ---
Author Organization [facility] Address [address] [place] [address] Care Team Providers Care Customer Service Analyst Name Role Phone Unavailable Unavailable Unavailable Surgery Details Not on file Complications Check Surgery Details section. Procedure Estimated Blood Loss Check Surgery Details section. Procedure Findings Check Surgery Details section. Procedure Specimens Taken Check Surgery Details section.
[2024-03-21 22:03] LABS: HPV Source Cervix; HPV, High Risk by TMA Not Detected
== END 2024-03-20 11:06 | disposition home or self-care (01) ==
PROVIDERS: Visit Provider Physician Assistant
DX: Z12.4 Encounter for screening for malignant neoplasm of cervix (principal); Z11.51 Encounter for screening for human papillomavirus (HPV)
CPT/HCPCS: 87624; 87625; 88141; 88142

== ENCOUNTER 2024-07-29 09:04 | Outpatient (CLI) | payer MEDICAID, SELFPAY | END 2024-07-29 09:05 | disposition home or self-care (01) | PROVIDERS: PCP Family Medicine; Visit Provider Family Medicine | DX: R53.83 Other fatigue (principal); E28.2 Polycystic ovarian syndrome; L70.0 Acne vulgaris; Z13.6 Encounter for screening for cardiovascular disorders | CPT/HCPCS: 80053; 80061; 82306; 82607; 82728; 84443 ==